=== PATIENT | male | born 1955 | race Caucasian/White ===

== ENCOUNTER 2019-03-02 21:34 | Emergency (ER) | payer MEDICARE, OTHER, SELFPAY ==
[2019-03-02 21:36] VITALS: BP 183/102; PULSE 79; RESP 18; TEMP 36.8; O2SAT 96; BMI 30.7
--- NOTE | 2019-03-02 22:36 | RAD_ITS ---
STUDY: X-RAY - LEFT TIBIA AND FIBULA REASON FOR EXAM: Male, 63 years old. Injury. Metal work bench fell on legs TECHNIQUE: Frontal and lateral view(s) of the tibia and fibula were obtained. COMPARISON: None. FINDINGS: Normal visualized tibia. There is subtle lucency of the proximal shaft of the fibula with acute nondisplaced fracture versus artifact. The soft tissue structures are unremarkable. RAD/Tibia & Fibula 2 Views IMPRESSION: Fibula fracture versus artifact. Electronically Signed: Van Mosher MD at 23:29 EDT , Service support ,
--- NOTE | 2019-03-02 22:37 | ED.VIS.LOWEX ---
History of Present Illness Chief Complaint: Lower Extremity Injury Informant: Patient Occurred: Today - RADHA, about 1 hr ago Mechanism/Context: Injury Context: Sudden Onset Timing: Continuous Quality of Pain: Aching Location: both lower legs/knees Current Severity: Mild Maximum Severity: Moderate Worsened by: walking, moving Relieved by: remaining still Associated Symptoms: Negative for: Parasthesia, Weakness, Loss of Funtion Narrative: Patient states he was fabricating a heavy metal table, he had part of it jacked up on the blocks so that he could get underneath of it to paint it, when it tipped over accidentally because he moved to forgetting it was up on blocks, it landed on his legs. He was pinned under it because of his weight for 10-15 minutes, 1 someone helped him to lift it off he was able to get up and walk although he is having pain. He states that hit his left lower extremity first and then across his right lower. Proximal aspects of both lower legs are what are basically injured, the left side of both of them; medial on the right and lateral on the left. He has been able to ambulate since then. He is on Eliquis for history of atrial fibrillation. He denies any numbness that he knows of. Family states he was pale when they found him underneath the table but conscious and he denies any other injuries or pain. - Past Medical History (1) Atrial fibrillation Status: Chronic Past Medical History - Allergies and Home Meds Allergies/Adverse Reactions: Allergies No Known Allergies Allergy (Verified 03/02/19 21:38) Primary Care Physician: River Cho MD [Primary Care Provider] - Surgical History: total knee arthroplasty - Right Lives: With Family Smoking Status: Never smoker Review of Systems Cardiovascular: Denies: Chest pain, Palpitations Respiratory: Denies: Dyspnea, Orthopnea Gastrointestinal: Denies: Abdominal pain, Nausea, Vomiting Musculoskeletal: Reports: Extremity Pain. Denies: Neck pain, Back pain, Swelling Skin: Reports: Abrasions, Wounds Neurological: Denies: Headache, Weakness, Parasthesia, Numbness Physical Exam Vital Signs/Narrative: Vital Signs Temp Pulse Resp BP Pulse Ox 03/02/19 21:36 98.3 F 79 18 183/102 H 96 Inital Vital Signs reviewed: Yes - Extremity Exam Right Hip: Negative for: Limited ROM Left Hip: Negative for: Limited ROM Right Femur: - - Atraumatic and nontender Left Femur: - - Atraumatic and nontender Right Knee: Negative for: Limited ROM - Full range of motion. Extensor mechanism intact. No effusion. No patellar tenderness. All ligaments nontender with stressing, short endpoints, and no laxity including negative posterior drawer and Sawyer. Left Knee: Negative for: Limited ROM - Full range of motion. Extensor mechanism intact. No effusion. No patellar tenderness. All ligaments nontender with stressing, short endpoints, and no laxity including negative posterior drawer and Sawyer. Right Tib fib: Contusion - Mild ecchymosis with tenderness proximal medial calf and medial joint line of knee; no deformities; all compartments soft and nondistended. Negative for: Limited ROM - Full range of motion of knee and ankle Left Tib Fib: Abrasion - At fibular head, Contusion - Mild ecchymosis with tenderness proximal lateral lower leg and lateral joint line of knee; no deformities; all compartments soft and nondistended. Negative for: Limited ROM - Full range of motion knee and ankle Right Ankle: Negative for: Limited ROM - Atraumatic and nontender Left Ankle: Negative for: Limited ROM - Atraumatic and nontender Right Foot: Negative for: Limited ROM - Atraumatic and nontender Left Foot: Negative for: Limited ROM - Atraumatic and nontender Right Toe: Negative for: Limited ROM - Atraumatic and nontender Left Toe: Negative for: Limited ROM - Atraumatic and nontender General: Well nourished, Well developed, - - Well appearing, NAD Head: Normocephalic, Atraumatic ENT: No Trauma, Moist Mucous Membranes Neck: Nontender, Full ROM Back: Nontender, - - Age of motion throughout Skin: Normal color, No rash, Trauma - Minor light ecchymosis and abrasions both lower extremities, proximal lower legs. No signs of trauma and thighs. No purpuric injury. No lacerations. Neurological: Alert, Oriented x3, Cranial nerves II-XII grossly intact, Normal Strength, Normal Sensation Psychological: Normal affect, Normal Mood Diagnostic/Tx/Re-eval Impressions Tibia/Fibula X-Ray 03/02/19 22:39 IMPRESSION: No fracture. Electronically Signed: Van Mosher MD at 23:27 EDT , Service support , 03/02/19 22:36 Tibia & Fibula 2 Views [RAD] Stat 03/02/19 22:39 Tibia & Fibula 2 Views [RAD] Stat Laboratory Results 03/02/19 03/02/19 03/02/19 22:50 22:50 23:04 WBC 10.4 RBC 4.53 L Hgb 14.9 Hct 42.4 MCV 93.6 MCH 32.9 H MCHC 35.1 RDW Std Deviation 42.4 RDW Coeff of Calista 12.2 Plt Count 114 L MPV 11.2 Immature Gran % (Auto) 0.300 Neut % (Auto) 76.2 H Lymph % (Auto) 15.1 L [place] % (Auto) 5.9 Eos % (Auto) 1.8 Baso % (Auto) 0.7 Absolute Neuts (auto) 8.0 H Absolute Lymphs (auto) 1.57 Nucleated RBC % 0 Sodium Cancelled Potassium Cancelled Chloride Cancelled Carbon Dioxide Cancelled Anion Gap Cancelled BUN Cancelled Creatinine Cancelled Estim Creat Clear Calc Cancelled Est GFR (MDRD) Af Amer Cancelled Est GFR (MDRD) Non-Af Cancelled BUN/Creatinine Ratio Cancelled Glucose Cancelled Calcium Cancelled Total Creatine Kinase Cancelled Urine Color Yellow Urine Clarity Clear Urine pH 7.0 Ur Specific [place] 1.010 Urine Protein Negative Urine Glucose (UA) Normal Urine Ketones Negative Urine Occult Blood Negative Urine Nitrite Negative Urine Bilirubin Negative Urine Urobilinogen Normal Ur Leukocyte Esterase Negative Urine RBC 0 SEEN Urine WBC 0 SEEN Ur Squamous Epith Cells 0 SEEN Urine Bacteria 0 SEEN Urine Mucus 0 SEEN Urine Yeast RARE 03/02/19 03/02/19 23:50 23:50 WBC 10.3 RBC 4.37 L Hgb 14.3 Hct 40.8 MCV 93.4 MCH 32.7 H MCHC 35.0 RDW Std Deviation 42.6 RDW Coeff of Calista 12.3 Plt Count 186 MPV 9.4 Immature Gran % (Auto) 0.300 Neut % (Auto) 75.1 H Lymph % (Auto) 16.0 L [place] % (Auto) 6.2 Eos % (Auto) 1.8 Baso % (Auto) 0.6 Absolute Neuts (auto) 7.8 H Absolute Lymphs (auto) 1.65 Nucleated RBC % 0 Sodium 139 Potassium 3.9 Chloride 105 Carbon Dioxide 25.0 Anion Gap 9 BUN 21 H Creatinine 0.92 Estim Creat Clear Calc 85.26 Est GFR (MDRD) Af Amer 107 Est GFR (MDRD) Non-Af 88 BUN/Creatinine Ratio 22.9 H Glucose 100 Calcium 8.7 Total Creatine Kinase 587 H Urine Color Urine Clarity Urine pH Ur Specific [place] Urine Protein Urine Glucose (UA) Urine Ketones Urine Occult Blood Urine Nitrite Urine Bilirubin Urine Urobilinogen Ur Leukocyte Esterase Urine RBC Urine WBC Ur Squamous Epith Cells Urine Bacteria Urine Mucus Urine Yeast - Medical Decision Making CPK is a little elevated but is not 5 times the upper limit of normal to suggest rhabdomyolysis. Urinalysis is normal showing no myoglobinuria and he has normal kidney function. X-rays show normal right side and a nondisplaced upper fibular shaft fracture on the left. Given the mechanism, this is likely from blunt injury and not from torquing, he has no pain at the ankle. There is no clinical suspicion at this time of compartment syndrome. Discussed with Dr. Pedro Castro who states he can be weightbearing as tolerated and follow-up as an outpatient, however if he is limping due to the pain, which he is, he should use some type of ambulatory assist device to help limit weightbearing. Patient has a walker and cane at home so he will use those. Prescribed tramadol to use as needed for pain in addition to Tylenol which he was given here, advised to use ice not heat, and avoid NSAIDs since he is on Eliquis. All questions answered at bedside he is comfortable with this plan. ED Disposition - Plan for ED Patient: Disposition: Home or Assisted Living Diagnosis: Closed traumatic nondisplaced fracture of shaft of left fibula, Contusion of right lower leg Instructions: FRACTURE, Lower Extremity Prescriptions: traMADol [Ultram] 50 mg PO Q4H PRN PRN 3 Days #20 tab PRN Reason: Pain Prescription Printed Referrals: Pedro Castro MD [STAFF PHYSICIAN] - 1-2 Weeks Additional Instructions: Okay to take Tylenol as needed for pain, may add prescription tramadol as needed. They do not interact with each other, so take the prescription as prescribed as needed and Tylenol up to 1000 mg every 6 hours or 650 mg every 4 hours as needed for pain. For any swelling or pain while resting you may apply ice to the affected area(s); do not apply heat. Use cane or walker to help limit weightbearing to your left lower extremity until you no longer need to limp on it.
--- NOTE | 2019-03-02 22:39 | RAD_ITS ---
STUDY: X-RAY - RIGHT TIBIA AND FIBULA REASON FOR EXAM: Male, 63 years old. Injury. Metal work bench fell on legs. TECHNIQUE: Frontal and lateral view(s) of the tibia and fibula were obtained. COMPARISON: None. FINDINGS: There is right knee replacement. Normal distal tibia. Normal visualized fibula. There is no demonstrated acute fracture. The soft tissue structures are unremarkable. RAD/Tibia & Fibula 2 Views IMPRESSION: No fracture. Electronically Signed: Van Mosher MD at 23:27 EDT , Service support ,
[2019-03-02 23:06] VITALS: RESP 16
[2019-03-02 23:12] LABS: Bacteria 0 SEEN /hpf (None Seen); Mucous, Urine 0 SEEN /hpf (<or=2+); Red Blood Cells-Urine 0 SEEN /hpf (0-5); Squamous Epithelial Cells - UA 0 SEEN /hpf (0-5); White Blood Cells 0 SEEN /hpf (0-5)
[2019-03-02 23:13] LABS: Color, Urine Yellow (Yellow); Glucose, Dipstick Normal (Normal); Ketone-Dipstick Negative (Negative); Leukocyte Esterase-Dipstick Negative /ul (Negative); Nitrite-Dipstick Negative (Negative); Occult Blood-Urine Negative /ul (Negative); Protein-Dipstick Negative (Negative); Urine Bilirubin Dipstick Negative (Negative); Urine Clarity Clear (Clear); Urine Urobilinogen Normal (Normal)
[2019-03-02 23:20] LABS: Yeast-Urine RARE /hpf (None Seen)
[2019-03-02] MEDS: Acetaminophen 325 MG Tablet 650 MG PO (23:30)
[2019-03-03 00:08] LABS: Absolute Lymphocyte Count 1.65 X10^3/uL (0.83-4.51); Absolute Neutrophil Count 7.8 X10^3/uL (2.0-7.7); Basophil# 0.06 X10^3/uL; Basophil% 0.6 % (0-1); Eosinophil# 0.19 X10^3/uL; Eosinophils% 1.8 % (0-5); Hematocrit 40.8 % (40-54); Hemoglobin 14.3 g/dL (13.0-16.5); Lymphocyte # 1.65 X10^3/ul (4.0); Mean Corpuscular Hgb 32.7 pg (27.0-32.0); Mean Corpuscular Volume 93.4 fL (80-94); Mean Platelet Vol. 9.4 fl (6.2-12.0); Monocyte# 0.64 X10^3/uL; Monocyte% 6.2 % (0-10); NRBC Flagged by Analyzer 0 % (0-5); Neutrophil # 7.76 X10^3/uL (2.7-7.7); Neutrophil % 75.1 % (47-70); Platelet Count 186 K/mm3 (150-450); RBC Distribution Width CV 12.3 % (11.6-14.6); RBC Distribution Width SD 42.6 fl (35.1-43.9); Red Blood Count 4.37 M/mm3 (4.6-6.2); White Blood Count 10.3 K/mm3 (4.4-11.0)
[2019-03-03 00:37] LABS: Anion Gap 9 (5-15); BUN 21 mg/dL (7-18); BUN/Creat Ratio 22.9 RATIO (10-20); CPK Total, Creatine Kinase 587 U/L (39-308); Calcium,Total 8.7 mg/dL (8.5-10.1); Chloride 105 mmol/L (98-107); Creatinine, Serum 0.92 mg/dL (0.70-1.30); EST Glomerular Filtration Rate 88 mL/min (>60); Est Glom Filt Rate - Afr Amer 107 mL/min (>60); Estimated Creatinine Clearance 85.26 ml/min; Glucose 100 mg/dL (74-106); Potassium 3.9 mmol/L (3.5-5.1); Sodium Level 139 mmol/L (136-145)
[2019-03-03 01:08] VITALS: BP 146/78; PULSE 87; RESP 17; O2SAT 97
== END 2019-03-03 01:09 | disposition home or self-care (01) ==
PROVIDERS: Emergency Provider Emergency Medicine; Family Provider Family Medicine; PCP Family Medicine
DX: S82.402A Unspecified fracture of shaft of left fibula, initial encounter for closed fracture (principal); S80.11XA Contusion of right lower leg, initial encounter; W20.8XXA Other cause of strike by thrown, projected or falling object, initial encounter; Y93.9 Activity, unspecified; Y92.9 Unspecified place or not applicable; Y99.9 Unspecified external cause status; I48.91 Unspecified atrial fibrillation; Z79.01 Long term (current) use of anticoagulants
CPT/HCPCS: 73590; 80048; 81001; 82550; 85025; 99282

== ENCOUNTER 2020-04-27 04:44 | Observation (INO) | payer MEDICARE, OTHER, SELFPAY ==
[2020-04-27] VITALS (16 sets, daily range): BP systolic 100–137; BP diastolic 52–79; PULSE 63–145; RESP 14–20; TEMP 35.5–36.8; O2SAT 94–100; BMI 33.7; BMI 32.3
--- NOTE | 2020-04-27 04:55 | EKG12_ITS ---
Test Reason : CP Blood Pressure : / mmHG Vent. Rate : 143 BPM Atrial Rate : 127 BPM P-R Int : 000 ms QRS Dur : 088 ms QT Int : 316 ms P-R-T Axes : 000 040 -78 degrees QTc Int : 487 ms Atrial fibrillation with rapid ventricular response ST & T wave abnormality, consider inferolateral ischemia Abnormal ECG Confirmed by BELKYS MACARIO, JOHN ([id number]), metropolitan editor DAVID SANCHEZ ([id number]) on 05/02/2020 10:08:39 AM Referred By: CAMMY Confirmed By:JOSE F RIZVI MD
[2020-04-27] MEDS: dilTIAZem 25 MG/5 ML Vial 20 MG IV BOLUS (05:00)
--- NOTE | 2020-04-27 05:02 | ED.DCSUM_ITS ---
History of Present Illness Chief Complaint: Palpitations Narrative: Mr. Cordova is a pleasant 64-year-old gentleman who presents with epigastric pressure. At about 1 AM he had what he initially thought was gas pain. He complains of an epigastric pressure as well as mild shortness of breath and palpitations. This began about 4 hours prior to presentation. He does have a history of paroxysmal atrial fibrillation. He is anticoagulated. He denies any recent medical illness otherwise such as fevers cough vomiting diarrhea. He sees cardiology in [place], he believes it was Dr. Newberry. Past Medical History - Allergies and Home Meds Allergies/Adverse Reactions: Allergies No Known Allergies Allergy (Verified 04/27/20 04:47) Primary Care Physician: River Cho MD [Primary Care Provider] - Past Medical History: - - Hypertension, hyperlipidemia, atrial fibrillation Surgical History: total knee arthroplasty - Right Smoking Status: Never smoker Review of Systems All systems negative except as indicated General: Denies: Fever Eyes: Denies: Visual changes - bilaterally ENT: Denies: Bilateral ear pain Cardiovascular: Reports: Chest pain, Palpitations, Heart racing Respiratory: Reports: Dyspnea Gastrointestinal: Denies: Nausea, Vomiting Musculoskeletal: Denies: Myalgias Skin: Denies: Rash Neurological: Denies: Headache Allergy: Denies: Uticaria Physical Exam Vital Signs/Narrative: Vital Signs Temp Pulse Resp BP Pulse Ox 04/27/20 04:58 100 04/27/20 04:44 96 F L 145 H 20 H 132/78 H 99 Inital Vital Signs reviewed: Yes General: Well nourished Head: Normocephalic Eyes: EOMI ENT: Moist mucous membranes Neck: Supple Cardiovascular: Irregular, Tachycardia, - - Palpable symmetric radial pulses Respiratory: No distress, CTA bilaterally Abdomen: Soft, Nontender Extremities: Nontender Skin: Normal color Neurological: Alert Psychological: Normal affect Diagnostic/Tx/Re-eval Impressions Chest X-Ray 04/27/20 05:08 IMPRESSION: No radiographic evidence of acute cardiopulmonary disease. at 0520 Reported and signed by: Judy Marlow DO Electronically Signed: Judy Marlow DO at 5:19 EST Tel , Service support , 04/27/20 05:08 Chest 1 View (Portable) [RAD] Stat Laboratory Results 04/27/20 04/27/20 04/27/20 04:52 04:52 04:52 WBC 7.7 RBC 4.92 Hgb 15.9 Hct 46.0 MCV 93.5 MCH 32.3 H MCHC 34.6 RDW Std Deviation 42.5 RDW Coeff of Calista 12.4 Plt Count 217 MPV 9.7 Immature Gran % (Auto) 0.100 Neut % (Auto) 60.2 Lymph % (Auto) 28.2 [place] % (Auto) 7.6 Eos % (Auto) 3.0 Baso % (Auto) 0.9 Absolute Neuts (auto) 4.6 Absolute Lymphs (auto) 2.16 Nucleated RBC % 0 PT 13.3 INR 1.1 Sodium 138 Potassium 3.7 Chloride 106 Carbon Dioxide 25.0 Anion Gap 7 BUN 23 H Creatinine 0.98 Estim Creat Clear Calc 78.97 Est GFR (MDRD) Af Amer 98 Est GFR (MDRD) Non-Af 81 BUN/Creatinine Ratio 23.4 H Glucose 118 H Calcium 8.7 Troponin I 0.036 - Medical Decision Making EKG shows atrial fibrillation with RVR at a rate of 143. There is inferior and lateral ST depression in T wave inversion suspect rate related. One-view portable chest x-ray was obtained. On my interpretation this shows no acute process. X-ray was then read by radiology as no radiographic evidence of acute cardiopulmonary disease. Labs are unremarkable with a negative troponin. Patient was given IV Cardizem and heart rate is ranging anywhere from 90s to 120 although is usually around 100-110. Patient did take his home metoprolol prior to coming to the emergency department. Patient discussed with the hospitalist who agrees to place in observation. ED Disposition - Plan for ED Patient: Disposition: Acute Care Hospital [facility] Diagnosis: Atrial fibrillation with RVR Referrals: River Cho MD [Primary Care Provider] -
[2020-04-27 05:05] LABS: Absolute Lymphocyte Count 2.16 X10^3/uL (0.83-4.51); Absolute Neutrophil Count 4.6 X10^3/uL (2.0-7.7); Basophil# 0.07 X10^3/uL; Basophil% 0.9 % (0-1); Eosinophil# 0.23 X10^3/uL; Hemoglobin 15.9 g/dL (13.0-16.5); Lymphocyte # 2.16 X10^3/ul (4.0); Lymphocyte % 28.2 % (19-41); Mean Corp Hgb Conc 34.6 g/dL (32-36); Mean Corpuscular Hgb 32.3 pg (27.0-32.0); Mean Corpuscular Volume 93.5 fL (80-94); Mean Platelet Vol. 9.7 fl (6.2-12.0); Monocyte# 0.58 X10^3/uL; Monocyte% 7.6 % (0-10); NRBC Flagged by Analyzer 0 % (0-5); Neutrophil % 60.2 % (47-70); Platelet Count 217 K/mm3 (150-450); RBC Distribution Width CV 12.4 % (11.6-14.6); RBC Distribution Width SD 42.5 fl (35.1-43.9); Red Blood Count 4.92 M/mm3 (4.6-6.2); White Blood Count 7.7 K/mm3 (4.4-11.0)
--- NOTE | 2020-04-27 05:06 | ED.RN ---
SON LEON [phone], JACKIE [phone]. UPDATED ON PROBABLE ADMISSION.
--- NOTE | 2020-04-27 05:08 | RAD_ITS ---
HEART PALPITATIONS THAT STARTED AROUND 1AM. H/O AFIB. HEAVINESS IN CHEST, DIZZINESS. EXAMINATION/TECHNIQUE: XR Chest 1 View: COMPARISON: None FINDINGS: LINES/DEVICES: None. LUNGS: No consolidation, edema or effusion. No pneumothorax. MEDIASTINUM AND CARDIOVASCULAR STRUCTURES: Cardiac silhouette not enlarged. Central airways and mediastinal contour are unremarkable. BONES AND SOFT TISSUES: Unremarkable. RAD/Chest 1 View (Portable) IMPRESSION: No radiographic evidence of acute cardiopulmonary disease. at 0520 Reported and signed by: Judy Marlow DO Electronically Signed: Judy Marlow DO at 5:19 EST Tel , Service support ,
[2020-04-27 05:12] LABS: International Normalized Ratio 1.1; Prothrombin Time (Protime)PT. 13.3 SECONDS (11.7-14.9)
[2020-04-27 05:24] LABS: Anion Gap 7 (5-15); BUN 23 mg/dL (7-18); BUN/Creat Ratio 23.4 RATIO (10-20); Calcium,Total 8.7 mg/dL (8.5-10.1); Chloride 106 mmol/L (98-107); Creatinine, Serum 0.98 mg/dL (0.70-1.30); EST Glomerular Filtration Rate 81 mL/min (>60); Est Glom Filt Rate - Afr Amer 98 mL/min (>60); Estimated Creatinine Clearance 78.97 ml/min; Glucose 118 mg/dL (74-106); Potassium 3.7 mmol/L (3.5-5.1); Sodium Level 138 mmol/L (136-145)
--- NOTE | 2020-04-27 05:42 | PCM.HP.STD ---
Problem List (1) Hypertension Status: Chronic (2) Atrial fibrillation Status: Chronic (3) Atrial fibrillation with RVR Status: Acute History of Present Illness Date of Admission: 04/27/20 Chief Complaint: Chest pressure, palpitation. The patient is a 64 year old M with past medical history as mentioned above presented to the emergency room because of chest pressure and palpitation. Patient states that he woke up around 1 AM this morning from his sleep, started having chest pressure, mild, described as pressure pain, not radiating and shortly after, he started having palpitation. He mentioned that he knew that his A. fib is acting up, started having strong irregular heartbeats, associated with dizziness and he continued to have chest pressure. He denied shortness of breath, syncope or presyncope. He denied cough or sputum production. He denied fever or chills. In the emergency department, patient was in A. fib with RVR, other vital signs were stable. Received 1 dose of IV Cardizem bolus and heart rate went down to around 100 but has been fluctuating anywhere from 90s up to 120s. Routine blood work was unremarkable. EKG revealed A. fib with RVR, no acute ischemic changes. Troponin was negative. Chest x-ray showed no acute findings. He is being admitted for A. fib with RVR. Past Medical History Past Medical History (Chronic Problems): Chronic Problems Hypertension (Chronic) Atrial fibrillation (Chronic) Allergies No Known Allergies Allergy (Verified 04/27/20 04:47) Home Medications: Ambulatory Orders Medication Instructions Recorded Apixaban [Eliquis] 5 mg PO BID 04/27/20 Isosorbide Mononitrate [Isosorbide 30 mg PO DAILY 04/27/20 Mononitrate ER] Lisinopril [Prinivil] 10 mg PO DAILY 04/27/20 Metoprolol Succinate 100 mg PO DAILY 04/27/20 Surgical History: total knee arthroplasty - Right Psychiatric History: No pertinent psych hx Lives: Spouse/ Significant Other Smoking Status: Never smoker Alcohol: None Drugs: None - *Family History Maternal History Items: No pertinent history Paternal History Items: No pertinent history Review of Systems Constitutional: Denies: Anorexia, Chills, Fever, Night Sweats, Weakness Eyes: Denies: Blurred vision, Double vision, Drainage, Redness HEENT: Denies: Difficulty Hearing, Ear Pain, Eye Pain, Nasal Congestion, Sore Throat Cardiovascular: Reports: Chest Pressure, Light Headedness, Palpitations. Denies: Chest Pain, Edema, Heaviness, Paroxysmal Noc. Dyspnea, Syncope Respiratory: Denies: Cough, Hemoptysis, Pleuritic Pain, Shortness of Breath, Sputum production, Wheezing Gastrointestinal: Denies: Abdominal Pain, Constipation, Diarrhea, Nausea, Vomiting Genitourinary: Denies: Dysuria, Frequency, Hematuria Musculoskeletal: Denies: Arm Pain, Back Pain, Foot Pain Skin: Denies: Dryness, Rash Neurological: Denies: Balance problems, Blurred vision, Double vision, Change in Speech, Slurred speech, Confusion, Headaches, Incoordination Psychiatric: Denies: Anxiety, Depression Endocrine: Denies: Change in Body Habitus, Polydipsia, Polyuria VTE Information - Inpt Only VTE Present on Admission: No VTE Mechan Device Prophylaxis: None VTE Pharm Prophylaxis ordered?: No Patient Problems: Active and Suspected Problems Atrial fibrillation with RVR (Acute) - Physical Exam Vitals/I&O's: Vital Signs Temp Pulse Resp BP Pulse Ox 96 F L 145 H 20 H 132/78 H 100 04/27/20 04:44 04/27/20 04:44 04/27/20 04:44 04/27/20 04:44 04/27/20 04:58 Oxygen Flow Rate (L/min) 2 Oxygen Delivery Method Nasal Cannula Weight: 241 lb 13.553 oz Body Mass Index (BMI) 33.7 General: Alert, Oriented x3, Cooperative, No apparent distress HEENT: Atraumatic, PERRLA, EOMI, Normocephalic Oral: Moist Mucosa, No Gingival or Mucosal Lesions/ Ulcerations Neck: Supple, No JVD, Negative Carotid Bruits, Trachea Midline, Thyroid Normal Size and Texture Lungs: Clear to auscultation, Normal air movement, No rhonchi, No wheeze, No rales Cardiovascular: Normal S1, Normal S2, No murmurs, PMI Normal, Irregular Rate, Tachycardic Abdomen: Bowel Sounds Present, Soft, Non Tender, Non-Distended, No Hepato-splenomegaly, Obese Extremities: No clubbing, No cyanosis, No edema Skin: No rashes, No breakdown Lymphatic: No Cervical, Supraclavicular, or Inguinal Adenopathy Neurological: Cranial nerves II-XII grossly intact, Motor Exam 5/5 strength throughout Psych/Mental Status: Normal Affect, Appropriate, Alert and oriented to time, place, person, mood and affect Laboratory Results 04/27/20 04:52: WBC 7.7, RBC 4.92, Hgb 15.9, Hct 46.0, MCV 93.5, MCH 32.3 H, MCHC 34.6, RDW Std Deviation 42.5, RDW Coeff of Calista 12.4, Plt Count 217, MPV 9.7, Immature Gran % (Auto) 0.100, Neut % (Auto) 60.2, Lymph % (Auto) 28.2, [place] % (Auto) 7.6, Eos % (Auto) 3.0, Baso % (Auto) 0.9, Absolute Neuts (auto) 4.6, Absolute Lymphs (auto) 2.16, Nucleated RBC % 0 04/27/20 04:52: Sodium 138, Potassium 3.7, Chloride 106, Carbon Dioxide 25.0, Anion Gap 7, BUN 23 H, Creatinine 0.98, Estim Creat Clear Calc 78.97, Est GFR (MDRD) Af Amer 98, Est GFR (MDRD) Non-Af 81, BUN/Creatinine Ratio 23.4 H, Glucose 118 H, Calcium 8.7, Troponin I 0.036 04/27/20 04:52: PT 13.3, INR 1.1 Clinical Impression(s) from Imaging Studies Chest X-Ray 04/27/20 05:08 IMPRESSION: No radiographic evidence of acute cardiopulmonary disease. at 0520 Reported and signed by: Judy Marlow DO Electronically Signed: Judy Marlow DO at 5:19 EST Tel , Service support , Assessment/Plan All Active Problems Atrial fibrillation with RVR (Acute) This is a 64 years old male patient presented to the emergency room because of chest pressure and palpitation and is being admitted for A. fib with RVR. #1 A. fib with RVR: In the setting of history of chronic atrial fibrillation. EKG reviewed as above. Patient received 1 dose of IV Cardizem bolus. Heart rate has been fluctuating anywhere from 90s up to 120s, blood pressure stable. Troponin is negative. No acute ischemic changes on EKG. Chest x-ray was unremarkable. Plan: Admit to PCU for observation, cardiac monitoring, serial cardiac enzymes, check TSH, serum magnesium, continue metoprolol XL for rate control, continue Eliquis for anticoagulation, start Cardizem 30 mg p.o. every 6 hours. #2 hypertension: Blood pressure stable, continue lisinopril, metoprolol and isosorbide mononitrate. #3 DVT prophylaxis: Continue Eliquis. This note was generated with [employer] dictation software. It may contain incorrect words, spelling, and punctuation that were not noted in checking the note before signing. OBSV E&M: 20036 Initial observation care L2
--- NOTE | 2020-04-27 06:58 | PCS.PANDOC ---
PANDEMIC DOCUMENTATION INITIATED: Date: 04/27/20 Time: 631
--- NOTE | 2020-04-27 06:58 | PCS.PANDOC ---
PANDEMIC DOCUMENTATION INITIATED: Date: 04/27/2020 Time: 629
[2020-04-27] MEDS: dilTIAZem 30 MG Tablet PO ×4 (07:52→22:06)
[2020-04-27 08:17] LABS: Magnesium 1.8 mg/dL (1.6-2.6); Thyroid Stim Hormone (TSH) 3.24 uIU/mL (0.358-3.74)
--- NOTE | 2020-04-27 09:20 | ECHOD_ITS ---
Reason For Study: A. fib Procedure This was a 2D Doppler, Color Flow transthoracic echocardiogram. Exam performed portable in patient room. Left Ventricle -The LV EF is 60 to 65% with LVH. -There is no significant regional wall motion abnormality. Right Ventricle Normal right ventricle. Atria Normal left atrium. Normal right atrium. Mitral Valve The mitral valve is structurally normal. No prolapse or stenosis seen. Tricuspid Valve Normal tricuspid valve. Aortic Valve Trisinus/trileaflet aortic valve. -There is trace to mild aortic regurgitation. Pulmonic Valve The pulmonic valve is not well visualized. Great Vessels Normal inferior vena cava. Pericardium/Pleural No pericardial effusion. MMode/2D Measurements & Calculations LVIDd: 3.9 cm IVSd: 1.5 cm Ao root diam: 3.4 cm LVIDs: 2.4 cm LVPWd: 1.2 cm RVDd: 3.7 cm FS: 38.6 % LAV(MOD-bp): 75.0 ml LA A4 area: 22.5 cm2 LA dimension(2D): 3.8 cm LAV(MOD-bp) Indexed: 33.5 ml/m2 LAV(MOD-sp2): 73.3 ml LAV(MOD-sp4): 65.0 ml RA A4 area: 18.6 cm2 Doppler Measurements & Calculations MV E max pati: 75.4 cm/sec Ao V2 max: 117.9 cm/sec LV V1 max: 87.5 cm/sec Ao max P.6 mmHg LV V1 max P.1 mmHg PA V2 max: 82.2 cm/sec TR max pati: 238.3 cm/sec TR max P.7 mmHg Interpretation Summary +Transthoracic Echo Summary: -The LV EF is 60 to 65% with LVH. -There is no significant regional wall motion abnormality. -There is trace to mild aortic regurgitation. -There is no significant diastolic dysfunction. -There is no significant Pulmonary Hypertension. -The IVC is within normal limits. -There is no gross PFO or ASD. DO LIZBETH Gallegos, WILLY PARHAM, [place] Ordering Physician: Bret Soto Referring Physician: River Cho Performed By: Matilde Wang RDCS
[2020-04-27] MEDS: Metoprolol(XL)Succ 100 MG Tablet PO (10:02)
[2020-04-27] MEDS: APIXABAN 5 MG TABLET PO ×2 (10:02→22:06)
--- NOTE | 2020-04-27 13:14 | EKG12_ITS ---
Test Reason : RHYTHM Blood Pressure : / mmHG Vent. Rate : 069 BPM Atrial Rate : 069 BPM P-R Int : 154 ms QRS Dur : 086 ms QT Int : 404 ms P-R-T Axes : 007 019 -29 degrees QTc Int : 432 ms Normal sinus rhythm Nonspecific T wave abnormality Abnormal ECG When compared with ECG of 27-APR-2020 04:48, MANUAL COMPARISON REQUIRED, DATA IS UNCONFIRMED Confirmed by BELKYS MACARIO, JOHN ([id number]), food editor DAVID SANCHEZ ([id number]) on 05/02/2020 11:59:15 AM Referred By: ASTRID Confirmed By:JOSE F RIZVI MD
--- NOTE | 2020-04-27 14:04 | PCM.HOSP.N ---
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 H&P reviewed. Patient is in A. fib and converted to sinus rhythm about 1315 hours. On Toprol-XL and diltiazem 30 mg every 6 hourly. Patient denies history of coronary artery disease or SD or CHF. Physical exam General: Alert, Oriented x3, Cooperative HEENT: Atraumatic, PERRLA, EOMI, Normocephalic Oral: No Gingival or Mucosal Lesions/ Ulcerations Neck: Supple, No JVD, Negative Carotid Bruits Lungs: Air entry diminished in bilateral lung bases. No crepitation/rhonchi Cardiovascular: Regular rate, Regular Rhythm, Normal S1, Normal S2, No murmurs Abdomen: Bowel Sounds Present, Soft, Non Tender, Non-Distended : No renal angle tenderness. No suprapubic tenderness. Extremities: No edema, Capillary Refill Less than 3 Seconds Skin: No rashes, No breakdown Musculoskeletal: No Tenderness to Palpation of Joints or Extremities Neurological: Cranial nerves II-XII grossly intact, Deep Tendon Reflexes 2+/4 and Symmetrical, Neuro grossly intact Psych/Mental Status: Normal Affect, Appropriate. The echo was done -The LV EF is 60 to 65% with LVH. -There is no significant regional wall motion abnormality. -There is trace to mild aortic regurgitation. -There is no significant diastolic dysfunction. -There is no significant Pulmonary Hypertension. -The IVC is within normal limits. -There is no gross PFO or ASD. A. fib with RVR. Patient has history of chronic A. fib and was once cardioverted and stayed in sinus rhythm for a long time. Troponins mildly elevated 0.184, 0.312 probably related to A. fib with RVR. No regional wall motion abnormality as mentioned in 2D echo above. Continue Toprol-XL 100 mg daily and diltiazem 30 mg every 6, and lisinopril.
[2020-04-28 03:00] VITALS: PULSE 71
[2020-04-28 03:56] VITALS: BP 136/73; PULSE 66; RESP 16; TEMP 36.9; O2SAT 94
[2020-04-28] MEDS: dilTIAZem 30 MG Tablet PO (06:08)
[2020-04-28 07:00] VITALS: PULSE 68
[2020-04-28 07:18] LABS: Cholesterol 167 mg/dL (200); High Density Lipoprotein 37 mg/dL; Triglycerides 185 mg/dL; Very Low Density Lipoprotein 37 mg/dL (5-40)
[2020-04-28 07:30] VITALS: O2SAT 93
--- NOTE | 2020-04-28 08:41 | PCM.DC ---
- Discharge Diagnoses Current Active Problems: Current Active and Chronic Problems Hypertension (Chronic) Atrial fibrillation (Chronic) Atrial fibrillation with RVR (Acute) You will use the following diet at home:: Cardiac Your food should be the consistency of: Regular Discharge Activity: Return to Normal Activity Weight Bearing Status: Weight bearing as tolerated Call your doctor if you observe: Fever of 101 or Higher, Coldness, Increased Pain, Numbness or Tingling, Inability to urinate, Inability to have a bowel movement, Shortness of breath, Dizziness, Fainting spells, Swelling in the ankles, Chest pain, Prolonged hiccoughing, Increased palpitations (irregular heartbeat), Calf discomfort, Uncontrolled pain Additional Instructions: 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 fib with RVR. Advised outpatient exercise nuclear myocardial perfusion stress test in 2 to 4 weeks. Patient had last stress test about 3 years ago which was normal as per the patient. Allergies/Adverse Reactions: Allergies No Known Allergies Allergy (Verified 04/27/20 04:47) Medications to take at Discharge Apixaban [Eliquis] 5 mg PO BID 04/27/20 Isosorbide Mononitrate [Isosorbide Mononitrate ER] 30 mg PO DAILY 04/27/20 Lisinopril [Prinivil] 10 mg PO DAILY #0 04/28/20 Metoprolol Tartrate 75 mg PO BID #60 tab 04/28/20 The following prescriptions were given: Metoprolol Tartrate 75 mg PO BID #60 tab Transmission Status: Received by [facility]/pharmacy #[id number] Primary Care Physician: River Cho MD [Primary Care Provider] - Please follow up with your Primary Care Physician in: in 2 weeks Test Results: Test results from this visit will be discussed in further detail at your follow-up appointment, if applicable.
--- NOTE | 2020-04-28 08:43 | PCM.DC.SUM ---
Discharge Date and Diagnosis - Problem List Patient Problems: Active and Suspected Problems Atrial fibrillation with RVR (Acute) Date of Admission: 04/27/20 Date of Discharge: 04/28/20 - Primary Discharge Diagnosis Acute Problems: Active Problems Atrial fibrillation with RVR (Acute) - Secondary Discharge Diagnosis Chronic Problems: Chronic Problems Hypertension (Chronic) Atrial fibrillation (Chronic) Hospital Course and Treatment Summary of Care Provided: This 64 requesting gentleman with history of chronic A. fib was admitted with chest pressure and palpitation after he woke up with palpitation and pressure. EKG showed A. fib with RVR. Chest x-ray no acute finding. Patient had 1 dose of 20 mg IV Cardizem bolus and heart rate was slowed down around 100/min was further admitted in PCU. Patient had serial troponins which was mildly elevated from 0.184 0.509 and then decreased 0.14. Patient denies any further chest pressure after admission in PCU. Patient converted to sinus rhythm about 1300 hrs. on 04/27 confirmed with twelve-lead EKG. Patient denies any history of coronary artery disease, [place] or CHF. During hospital stay, patient continued on Toprol XL 100 mg daily and diltiazem 30 mg every 6 hourly added. Lisinopril continued. The echo was done -The LV EF is 60 to 65% with LVH. -There is no significant regional wall motion abnormality. -There is trace to mild aortic regurgitation. -There is no significant diastolic dysfunction. -There is no significant Pulmonary Hypertension. -The IVC is within normal limits. -There is no gross PFO or ASD. Discussed with the boat crew deck hand Dr. Singh specifications checker. We agreed that mild leaking troponin is type II TX from demand ischemia from A. fib with RVR. Patient does not have chest pain echo does not show regional wall motion abnormality. Patient was advised to have exercise myocardial nuclear stress test in 2 to 4 weeks with PCP and cardiology. Patient follows boat crew deck hand in [place] although he was not able to recall his name. Toprol-XL 100 mg daily was changed to metoprolol tartrate 75 mg twice daily as per boat crew deck hand recommendation. Patient is on Eliquis, lisinopril and isosorbide mononitrate. Blood pressure in normal range. Discharge medication reconciliation done. Discharge follow-up instructions completed. Discharge process discussed with the patient and all questions were answered to patient's satisfaction. Total time spent, exact 35 minutes on discharge meds reconciliation, examination, coordination of care with nurses and ancillary staff, review of imaging and blood test and discussion with the patient on follow-up instructions Patient Problems: Active and Suspected Problems Atrial fibrillation with RVR (Acute) Objective: Seen and examined. Patient's heart rate is controlled currently in high 60s. Patient was converted to sinus rhythm yesterday afternoon confirmed with twelve-lead EKG. Patient did not had any chest pain, shortness of breath, dizziness or near syncope or syncope. Physical exam General: Alert, Oriented x3, Cooperative HEENT: Atraumatic, PERRLA, EOMI, Normocephalic Oral: No Gingival or Mucosal Lesions/ Ulcerations Neck: Supple, No JVD, Negative Carotid Bruits Lungs: Air entry diminished in bilateral lung bases. No crepitation/rhonchi Cardiovascular: Regular rate, Regular Rhythm, Normal S1, Normal S2, No murmurs Abdomen: Bowel Sounds Present, Soft, Non Tender, Non-Distended : No renal angle tenderness. No suprapubic tenderness. Extremities: No edema, Capillary Refill Less than 3 Seconds Skin: No rashes, No breakdown Musculoskeletal: No Tenderness to Palpation of Joints or Extremities Neurological: Cranial nerves II-XII grossly intact, Deep Tendon Reflexes 2+/4 and Symmetrical, Neuro grossly intact Psych/Mental Status: Normal Affect, Appropriate. - Physical Exam Vitals/I&O's: Vital Signs Temp Pulse Resp BP Pulse Ox 98.4 F 66 16 136/73 H 93 04/28/20 03:56 04/28/20 03:56 04/28/20 03:56 04/28/20 03:56 04/28/20 07:30 Oxygen Flow Rate (L/min) 2 Oxygen Delivery Method Room Air Weight: 232 lb 2.348 oz Body Mass Index (BMI) 32.3 Intake and Output for Last 24 Hours 04/26/20 04/27/20 04/28/20 23:59 23:59 23:59 Intake Total 1140 / 1140 0 / 0 Balance 1140 / 1140 0 / 0 Laboratory Results 04/27/20 10:25: Troponin I 0.312 H 04/27/20 19:05: Troponin I 0.509 H 04/28/20 06:22: Triglycerides 185, Cholesterol 167, LDL Cholesterol 93, VLDL Cholesterol 37, HDL Cholesterol 37 L 04/28/20 06:22: Troponin I 0.214 H Current Medications Acetaminophen (Acetaminophen 325 Mg Tablet) 650 mg PO Q6H PRN PRN PRN Reason: Pain Score 1-10/Temp > 100.7 F Apixaban (Apixaban 5 Mg Tablet) 5 mg PO BID [facility] Last Admin: 04/27/20 22:06 Dose: 5 mg Documented by: Diltiazem HCl (Diltiazem 30 Mg Tablet) 30 mg PO Q6 [facility] Last Admin: 04/28/20 06:08 Dose: 30 mg Documented by: Sodium Chloride () 250 mls @ 15 mls/hr IV .[id number] PRN PRN Reason: Saline Flush Isosorbide Mononitrate (Isosorbide Mononitrate 30 Mg Tablet) 30 mg PO DAILY [facility] Last Admin: 04/27/20 10:03 Dose: Not Given Documented by: Lisinopril (Lisinopril 10 Mg Tablet) 10 mg PO DAILY [facility] Last Admin: 04/27/20 10:04 Dose: Not Given Documented by: Metoprolol Succinate (Metoprolol(Xl)Succ 100 Mg Tablet) 100 mg PO DAILY [facility] Last Admin: 04/27/20 10:02 Dose: 100 mg Documented by: Ondansetron HCl (Ondansetron 4 Mg/2 Ml Vial) 4 mg IV Q8H PRN PRN PRN Reason: NAUSEA/VOMITING Senna/Docusate Sodium (Senna/Docusate Sodium 1 Tablet) 2 tablet PO BID PRN PRN PRN Reason: Constipation Sodium Chloride (0.9% Saline Lock 10 Ml Syringe) 10 - 40 ml IV UD PRN PRN Reason: SALINE FLUSH Discharge Activity: Return to Normal Activity Weight Bearing Status: Weight bearing as tolerated Call your doctor if you observe: Fever of 101 or Higher, Coldness, Increased Pain, Numbness or Tingling, Inability to urinate, Inability to have a bowel movement, Shortness of breath, Dizziness, Fainting spells, Swelling in the ankles, Chest pain, Prolonged hiccoughing, Increased palpitations (irregular heartbeat), Calf discomfort, Uncontrolled pain Home Medications: Medications to take at Discharge Apixaban [Eliquis] 5 mg PO BID 04/27/20 Isosorbide Mononitrate [Isosorbide Mononitrate ER] 30 mg PO DAILY 04/27/20 Lisinopril [Prinivil] 10 mg PO DAILY #0 04/28/20 Metoprolol Tartrate 75 mg PO BID #60 tab 04/28/20 Following Prescriptions Were Given to Patient: Metoprolol Tartrate 75 mg PO BID #60 tab Transmission Status: Received by [facility]/pharmacy #[id number] Primary Care Physician: River Cho MD [Primary Care Provider] - Please follow up with your Primary Care Physician in: in 2 weeks Medical Necessity - Tobacco Use Smoking Status: Never smoker Meaningful Use Info Meaningful Use Diagnoses (Choose all that apply): None applicable OBSV E&M: 53769 Observation care discharge
[2020-04-28 09:11] VITALS: BP 143/68; PULSE 69; RESP 18; TEMP 37; O2SAT 95
[2020-04-28 09:15] VITALS: PULSE 69
[2020-04-28] MEDS: Isosorbide Mononitrate 30 MG Tablet PO (09:15)
[2020-04-28] MEDS: Metoprolol(XL)Succ 100 MG Tablet PO (09:15)
[2020-04-28] MEDS: APIXABAN 5 MG TABLET PO (09:15)
[2020-04-28] MEDS: Lisinopril 10 MG Tablet PO (09:16)
== END 2020-04-28 08:42 | disposition home or self-care (01) ==
LOC: ED 05:41 → PCU 06:23
PROVIDERS: Admitting Provider Hospitalist; Emergency Provider Emergency Medicine; PCP Family Medicine; Visit Provider Internal Medicine
DX: I48.0 Paroxysmal atrial fibrillation (principal); I10 Essential (primary) hypertension; Z79.01 Long term (current) use of anticoagulants; Z79.899 Other long term (current) drug therapy; E78.5 Hyperlipidemia, unspecified
CPT/HCPCS: 36415; 71045; 80048; 80061; 83735; 84443; 84484; 85025; 85610; 93005; 93306; 96374; 99218; 99285; Q9957; A4216; G0378

== ENCOUNTER → 2020-06-10 05:59 | Outpatient (CLI) | payer MEDICARE, OTHER, SELFPAY ==
[2020-05-29 14:45] VITALS: BMI 32.9
--- NOTE | 2020-06-10 16:23 | STRESSREP ---
Stress Test Report Exercise myocardial perfusion stress test. 64-year-old man with a history of coronary artery disease in the proximal LAD which was moderate in a diagonal branch with severe disease. Resting EKG demonstrates normal sinus rhythm with a rate of 65 bpm. T wave inversion is noted in lead III and aVF. Resting blood pressure is 1 and 32/80 8 mmHg. The patient exercised according to regular Oleksandr protocol for a total duration of 6 minutes and 30 seconds. The maximum heart rate attained was 153 bpm which was 99% of max impacted heart rate the maximum workload was 7.7 metabolic equivalents. At rest there were no ST or T wave changes noted suggest ischemia peak exercise was approximately 2.[address] depression noted in leads II, III and aVF and 1.5 to 1.[address] depression noted in lead V4, V5 and V6 suggestive of ischemia. No chest pain was noted the test was terminated due to dyspnea. During recovery the EKG changes returned to baseline. The peak blood pressure was 250/80 mmHg with a rate-pressure product of 31,600. There was exaggerated blood pressure response to exercise. Myocardial perfusion protocol. 14.1 mCi of technetium 99m sestamibi was injected at rest. The patient exercised according to regular Oleksandr protocol for a total duration of 6 minutes and 30 seconds at peak exercise 43.9 mCi of technetium 99m sestamibi was injected stress images were obtained stress and rest images were reconstructed and compared in the short axis vertical long horizontal long axis. Gated images were also obtained Perfusion SPECT analysis: Review of the stress images demonstrate normal uptake of tracer noted in all areas of the myocardium. The resting images similar demonstrate normal uptake of tracer noted in all areas of myocardium. No obvious areas of reversibility are noted suggest ischemia. Gated SPECT analysis: The gated ejection fraction is noted to be 64%. Conclusion: Normal exercise myocardial perfusion stress test with no evidence of ischemia at a high workload. EKG changes suggestive of ischemia present. Balanced ischemia or small area of ischemia cannot be completely excluded. Hypertensive response to exercise is noted.
== END ==
PROVIDERS: PCP Family Medicine; Referring Provider Internal Medicine Cardiovascular Disease; Visit Provider Internal Medicine Cardiovascular Disease
DX: I48.91 Unspecified atrial fibrillation (principal); I48.92 Unspecified atrial flutter; I25.10 Atherosclerotic heart disease of native coronary artery without angina pectoris; R06.02 Shortness of breath
CPT/HCPCS: 78452; 93017; A9500; A4216

== ENCOUNTER 2020-07-01 15:23 | Inpatient (IN) | payer MEDICARE, OTHER, SELFPAY ==
[2020-05-29 14:45] VITALS: BMI 32.9
[2020-06-28 08:31] VITALS: BMI 32.9
[2020-06-28 14:13] LABS: Absolute Lymphocyte Count 1.82 X10^3/uL (0.83-4.51); Absolute Neutrophil Count 3.3 X10^3/uL (2.0-7.7); Basophil# 0.06 X10^3/uL; Eosinophil# 0.17 X10^3/uL; Eosinophils% 2.9 % (0-5); Hematocrit 42.3 % (40-54); Hemoglobin 14.3 g/dL (13.0-16.5); Lymphocyte # 1.82 X10^3/ul (4.0); Lymphocyte % 31.3 % (19-41); Mean Corp Hgb Conc 33.8 g/dL (32-36); Mean Corpuscular Hgb 31.5 pg (27.0-32.0); Mean Corpuscular Volume 93.2 fL (80-94); Mean Platelet Vol. 9.8 fl (6.2-12.0); Monocyte# 0.51 X10^3/uL; Monocyte% 8.8 % (0-10); NRBC Flagged by Analyzer 0 % (0-5); Neutrophil # 3.25 X10^3/uL (2.7-7.7); Neutrophil % 55.8 % (47-70); Platelet Count 220 K/mm3 (150-450); RBC Distribution Width CV 12.8 % (11.6-14.6); RBC Distribution Width SD 43.8 fl (35.1-43.9); Red Blood Count 4.54 M/mm3 (4.6-6.2); White Blood Count 5.8 K/mm3 (4.4-11.0)
[2020-06-28 15:01] LABS: Anion Gap 6 (5-15); BUN 21 mg/dL (7-18); BUN/Creat Ratio 22.4 RATIO (10-20); Chloride 106 mmol/L (98-107); Creatinine, Serum 0.94 mg/dL (0.70-1.30); EST Glomerular Filtration Rate 86 mL/min (>60); Est Glom Filt Rate - Afr Amer 104 mL/min (>60); Estimated Creatinine Clearance 82.33 ml/min; Glucose 87 mg/dL (74-106); Potassium 4.2 mmol/L (3.5-5.1); Sodium Level 138 mmol/L (136-145)
[2020-07-01] VITALS (38 sets, daily range): BP systolic 120–193; BP diastolic 10–98; PULSE 63–80; RESP 14–21; TEMP 36.4–36.9; O2SAT 93–99; BMI 32.9
--- NOTE | 2020-07-01 08:52 | PCM.HP.BLA ---
History and Physical Date of Admission: 07/01/20 History of Present Illness Pleasant 64-year-old man with a history of hypertension, mild coronary artery disease, obstructive sleep apnea who presented to the hospital in April of this year. He woke up with chest pressure and palpitations and in the emergency room was noted to have atrial fibrillation with a rapid ventricular response rate. He was treated with intravenous Cardizem with his heart rate slowing down. He had mildly elevated troponin levels. His medications were changed he had an echocardiogram performed which demonstrated an ejection fraction of 65% with left ventricular hypertrophy. No wall motion abnormalities were noted. He had undergone a cardiac catheterization in 2017 which demonstrated a right dominant system with mild irregularities noted in the right coronary artery and left circumflex artery. The LAD had a 60% proximal stenosis in the first diagonal vessel had an ostial 90% stenosis. Medical therapy was recommended. He had previously undergone a CHANDAN cardioversion in July 2017 for atrial fibrillation as well. He underwent a stress test which was abnormal. He is here today for a dianostic heart cath. Intake Intake Visit Reasons: Amb Documentation Allergies No Known Allergies Allergy (Verified 07/01/20 08:09) Medications Apixaban [Eliquis] 5 mg PO BID 04/27/20 [History Confirmed 07/01/20] Isosorbide Mononitrate [Isosorbide Mononitrate ER] 30 mg PO DAILY 04/27/20 [History Confirmed 07/01/20] Lisinopril [Prinivil] 10 mg PO DAILY #0 04/28/20 [Rx Confirmed 07/01/20] Metoprolol Tartrate 75 mg PO BID #60 tab 04/28/20 [Rx Confirmed 07/01/20] aspirin 81 mg tablet,delayed release 81 mg PO QDAY #90 tab 05/29/20 [Rx Confirmed 07/01/20] atorvastatin 20 mg tablet 20 mg PO DAILY #90 tab 05/29/20 [Rx Confirmed 07/01/20] [facility] Medical History Atherosclerosis of coronary artery of [place] heart without angina pectoris (Chronic) Atrial fibrillation with RVR (Resolved 04/27/20) Coronary artery spasm (Resolved) History of non-ST elevation myocardial infarction (NSTEMI) (Resolved 04/27/20) Paroxysmal atrial fibrillation (Chronic) Essential hypertension (Chronic) Hyperlipidemia (Chronic) RAULITO on CPAP (Chronic) Obesity (Chronic) Surgical History History of cardioversion (Resolved 07/09/17) History of left heart catheterization (Resolved 04/05/18) Family History Mother Cancer Father Heart disease Social History Smoking Status: Never smoker alcohol intake: current alcohol intake frequency: holidays/special occasions only ROS Const Const: Negative for fatigue, weakness, headache(s), frequent falls, difficulty sleeping or excessive sweating Eyes Eyes: Negative for loss of peripheral vision, transient loss of vision, blurry vision, double vision or tunnel vision ENT ENT: Negative for headache(s), dizziness, Nosebleed/epistaxis or balance problems Cardio Chest Pain: No Palpitations: No Edema: None Muscle aches with walking: None Resp Respiratory: Positive for SOB with activity; negative for SOB at rest, SOB orthopnea\SOB lying down, Cough or paroxysmal nocturnal dyspnea GI GI: Negative nausea, vomiting, heartburn or black,tarry stools : Negative for hematuria Musc Musc: Negative for muscle aches/ myalgia, muscle weakness, joint pain or balance problems Skin Skin: Negative non-healing lesions, rash or unusual bruising Neuro Neuro: Negative for dizziness, lightheadedness, near syncope, syncope, orthostatic symptoms, frequent falls, headache(s), weakness, blurry vision, double vision or lack of coordination Momo Hematologic/Lymphatic: Negative for easy bleeding or easy bruising Endo Endo: Negative for fatigue, excessive sweating or increased thirst/drinking Psych Psych: Negative for anxiety or depression Allergy Allergy/Immunology: Negative for hives, Negative for rash Cardiology Exam Const Appearance: cooperative, healthy appearing, no acute distress, well developed and well groomed Nutritional Appearance: average body habitus and well nourished Orientation: alert, awake and oriented x3 Head Head: normal to inspection, normocephalic and atraumatic Ears: hearing grossly normal bilaterally and external ears normal Nose: external nose normal, nares normal, nasal mucous membranes and turbinates normal, septum normal, no nasal discharge Face and Sinus: face symmetric Mouth: oral mucosae normal, tongue normal, oropharynx normal and moist mucous membranes Teeth and gingiva: dentition normal Throat: posterior oropharynx normal, tonsils normal and uvula midline Eyes General: appearance normal, both eyes and all related structures Eyelids: eyelids normal Conjunctivae: conjunctivae normal Pupils: PERRL, normal by confrontation and accommodation normal EOM: EOM intact bilaterally Neck Neck: normal visual inspection, trachea midline and no JVD JVD: +5 Carotids: normal carotid upstroke and bounding pulses Chest Chest inspection: normal inspection of the chest, symmetric chest movement and normal respiratory effort Auscultation: Bilateral: Clear to Auscultation Cardio Palpation: normal PMI Rate: regular rate Rhythm: regular rhythm Heart sounds: S1 normal, S2 normal and normal, physiologic split S2; negative rub, gallop or murmur GI GI: normal to inspection, soft, no hepatosplenomegaly and bowel sounds present Neuro General: alert, awake, oriented x3, gait normal, moves all extremities and no focal sensory deficit Skin Skin: no rashes or lesions noted Extremities Pulses: Normal: Right Femoral Pulse, Left Femoral Pulse, Right Dorsalis Pedis Pulse, Left Dorsalis Pedis Pulse, Right Posterior Tibial Pulse, Left Posterior Tibial Pulse, Right Radial Pulse, Left Radial Pulse Lower Extremity Edema: None: Bilateral Musculoskel Musculoskeletal: No joint tenderness Psych Psychological: normal affect Assessment & Plan Problems 1. Atherosclerosis of coronary artery of [place] heart without angina pectoris I25.10 2. Atrial fibrillation with RVR I48.91 3. Essential hypertension I10 4. Hyperlipidemia E78.5 5. Dyspnea on exertion R06.00 6. Abnormal stress test R94.39 Plan - Ana Carr PA, PA Pt will proceed with diagnostic heart cath. Follow up will be based on findings. Supplemental Info Supplemental Information Echocardiogram 04/2020: -The LV EF is 60 to 65% with LVH. -There is no significant regional wall motion abnormality. -There is trace to mild aortic regurgitation. -There is no significant diastolic dysfunction. -There is no significant Pulmonary Hypertension. -The IVC is within normal limits. -There is no gross PFO or ASD. Stress Test Report 05/2020: Exercise myocardial perfusion stress test. 64-year-old man with a history of coronary artery disease in the proximal LAD which was moderate in a diagonal branch with severe disease. Resting EKG demonstrates normal sinus rhythm with a rate of 65 bpm. T wave inversion is noted in lead III and aVF. Resting blood pressure is 1 and 32/80 8 mmHg. The patient exercised according to regular Oleksandr protocol for a total duration of 6 minutes and 30 seconds. The maximum heart rate attained was 153 bpm which was 99% of max impacted heart rate the maximum workload was 7.7 metabolic equivalents. At rest there were no ST or T wave changes noted suggest ischemia peak exercise was approximately 2.[address] depression noted in leads II, III and aVF and 1.5 to 1.[address] depression noted in lead V4, V5 and V6 suggestive of ischemia. No chest pain was noted the test was terminated due to dyspnea. During recovery the EKG changes returned to baseline. The peak blood pressure was 250/80 mmHg with a rate-pressure product of 31,600. There was exaggerated blood pressure response to exercise. Myocardial perfusion protocol. 14.1 mCi of technetium 99m sestamibi was injected at rest. The patient exercised according to regular Oleksandr protocol for a total duration of 6 minutes and 30 seconds at peak exercise 43.9 mCi of technetium 99m sestamibi was injected stress images were obtained stress and rest images were reconstructed and compared in the short axis vertical long horizontal long axis. Gated images were also obtained Perfusion SPECT analysis: Review of the stress images demonstrate normal uptake of tracer noted in all areas of the myocardium. The resting images similar demonstrate normal uptake of tracer noted in all areas of myocardium. No obvious areas of reversibility are noted suggest ischemia. Gated SPECT analysis: The gated ejection fraction is noted to be 64%. Conclusion: Normal exercise myocardial perfusion stress test with no evidence of ischemia at a high workload. EKG changes suggestive of ischemia present. Balanced ischemia or small area of ischemia cannot be completely excluded. Hypertensive response to exercise is noted. COVID (Procedure Consent) Procedure Criteria Procedure Criteria: Yes Elective The surgeon/proceduralist and patient have discussed in detail the risk of exposure to and/or potential harm posed by the COVID-19 virus with having a surgery/procedure at this time versus the risk of delaying the surgery/procedure. It is not possible to know either the risk of delaying the surgery or procedure or chance of getting an infection with perfect accuracy, but a joint decision was made between the patient and the surgeon/proceduralist to proceed at this time with the scheduled surgery/procedure as indicated on the consent form.
--- NOTE | 2020-07-01 10:36 | CL.D_ITS ---
Patient Name: TESHA POP Study Date: 07/01/2020 Performing: Harsh Kitchen MD Ht: 70.86 inches 180 cm : 1955 Wt: 235.89 lbs 107 kg Age: 64 Gender: male BSA: 2.26 PROCEDURE(S) PERFORMED PL85-YIC/COR/LV CLINICAL PROFILE AND INDICATIONS Indications: Worsening Angina Heart Failure: None Stress/Imaging Date: 06/10/20ress Test with SPECT MPI: Positive Intermediate Risk CAD Presentations: Unstable angina. CONCLUSIONS Significant coronary disease with proximal 80% LAD lesion and high-grade proximal stenosis in the fir st septal gut sorter. The rest of the vessels appeared to have mild disease. RECOMMENDATIONS Referred for immediate PCI DESCRIPTION OF PROCEDURE The patient arrived to the procedure lab. The risks and benefits of the procedure as well as a full d escription of our services here and current unavailability of surgical backup were fully explained to the patient and/or their significant other prior to the catheterization. The Timeout was completed, verifying the correct patient and procedure. The patient's procedural site was prepped and draped in the usual fashion. Local anesthetic was given subcutaneously to right radial region with Lidocaine 2% . Using a modified Seldinger technique, arterial access was obtained via the right radial artery, a 6 Fr sheath was inserted. Left Coronary Artery selective angiography was performed in multiple views u sing a 5 Fr. 4.0 Sublimity catheter. Right Coronary Artery selective angiography was then performed in mu ltiple views using a 5 Fr. 4.0 Sublimity catheter. Left Ventriculography was performed in LEIJA projection using a 5 Fr. Pigtail catheter. LV to AO pullback pressures were then recorded. CORONARY ANGIOGRAPHY DOMINANCE: Right Dominant LEFT HEART ASSESSMENT Left Ventricular Ejection Fraction: by LV Gram 60 % Normal LV wall motion Normal Left Ventricular systolic function LEFT MAIN: Mild calcification, Non-obstructive LEFT ANTERIOR DESCENDING ARTERY: PROX LAD: 80 % Stenosis DIAGONAL 1: Proximal - Mild luminal irregularities SEPTAL: 80 % Stenosis CIRCUMFLEX ARTERY: Mild luminal irregularities RIGHT CORONARY ARTERY: Mild luminal irregularities less than 30% COMPLICATIONS PROCEDURE MEDICATIONS Fentanyl 50 mcg IV Versed 1 mg IV Versed 1 mg IV Oxygen: 2 L/min via nasal cannula Heparin diluted in 23cc Heparinized saline. Patient given 10cc IA of this solution. 07/01/2020 10:15:2 6 Plavix 600 mg PO 07/01/2020 10:33:14 SUMMARY OF HEMODYNAMIC DATA Time AIR REST ECG 08:22:31 AO 120/69 (91) SA 10:17:44 LV 85/6, 10 10:26:11 LV 109/2, 10 10:26:17 LV 110/6, 13 10:27:00 LVp 108/8, 12 10:27:03 AOp 116/71 (92) 10:27:08 Signed By Harsh Kitchen MD On 07/01/2020 10:35:40 Harsh Kitchen MD
--- NOTE | 2020-07-01 12:13 | CL.PCI_ITS ---
PCI Cardiac Cath Report PCI Report: Procedure performed; 1. Successful PCI of 80% proximal LAD, with EMILY-3 flow, predilated and placement of drug-eluting stent, resolute 3 x 22 Postdilated with 3.5 x 20 NC balloon with reduction of stenosis to 0% and achievement of EMILY-3 flow. 2. Placement of TR band to maintain hemostasis of the right radial artery arteriotomy site. Preprocedure diagnosis; 64-year-old patient, underwent cardiac catheterization by his primary continuous pickling line pickler Dr. Kitchen Patient had a positive stress test with symptoms of chest pain. Also he had none obstructive CAD involving the proximal left anterior descending artery Based on his clinical presentation he underwent cardiac catheterization which showed 80% stenosis of the proximal LAD at the site of the tight 90% large septal branch. There is no lesion involving the ostium of the sidebranch diagonal. Procedure in detail; We used EBU 3.5 guide catheter 100 cm, patient was given Plavix 600 mg in the Parachute Supervisor as he had been on Eliquis which is stopped Angiographic views were obtained and lesion in the LAD identified and then we proceed with the run-through 0.014 wire/extra floppy 180 cm straight We crossed the lesion in the LAD place a wire at the distal portion of the left anterior descending artery. Then will proceed with balloon dilatation using 2.5 x 15 mm balloon, followed by placement of a drug-eluting stent resolute 3 x 22 mm, followed by postdilatation using 3.5 x 20 mm NC balloon. Nitroglycerin IC were used x2 Reviewed angiographic from which showed successful placement of the drug-eluting stents to the proximal/mid left anterior descending artery With excellent result and reduction of stenosis from 80% to 0% and EMILY-3 flow. Anticoagulation use in this case is heparin patient tolerated the procedure well with ACT level 252 Following this a TR band applied to right radial artery area to maintain hemostasis of the radial artery arteriotomy site with no complication in the Parachute Supervisor Recommendation; Continue on dual antiplatelet therapy with aspirin and Plavix, it is okay to resume Eliquis in this case Dual antiplatelet will be at least for 1 year. No complication in the Parachute Supervisor Floridalma Bundy MD,[facility] hay rake operator
--- NOTE | 2020-07-01 12:15 | EKG12_ITS ---
Test Reason : POST PCI Blood Pressure : / mmHG Vent. Rate : 078 BPM Atrial Rate : 078 BPM P-R Int : 194 ms QRS Dur : 078 ms QT Int : 356 ms P-R-T Axes : 079 047 -18 degrees QTc Int : 405 ms Normal sinus rhythm ST elevation consider anterolateral injury or acute infarct * ACUTE [place] Abnormal ECG Confirmed by SARITA MACARIO, JANA ([id number]), purchasing expeditor DAVID SANCHEZ ([id number]) on 07/03/2020 9:00:54 AM Referred By: Harsh Kitchen Confirmed By:JANA STEIN MD
[2020-07-01] MEDS: Nitroglycerin (INPATIENT USE) 0.4 MG TAB.SUBL SUBLINGUAL (12:52)
--- NOTE | 2020-07-01 13:58 | NURSING ---
to nurses station at this time reporting that patient complains of chest pain. In room to see patient, pt is moving around in bed, yelling out in pain. Applied O2. Called for stat EKG. Pt rates 10/10 pain sternally. Page to Dr Bundy. sandal parts assembler in room and instructed to call laborer ammunition assembly and speak with Dr Bundy. Dr Bundy states to obtain stat EKG and he will come see patient. Pt states pain is easing up but then comes right back. Dr Bundy in room, RT in room for stat EKG, verbal orders for 1 nitro SL Stat. Notified laborer ammunition assembly of events and possibility of coming back to laborer ammunition assembly. Dr Bundy confirms ST elevation in lead 1 and to call laborer ammunition assembly, pt to go emergently back to laborer ammunition assembly. electroplating laborer RN notified and states that will be up to get patient. Pt attached to stepdown monitor. Remains on 2L NC. SL nitro given. Drapery Hemmer Automatic RN in room, verbal report given to Chalo. Pt transported to laborer ammunition assembly in bed by Chalo. at bedside, aware of events, tearful and states she is worried. sandal parts assembler walked to Drapery Hemmer Automatic waiting room.
--- NOTE | 2020-07-01 14:06 | CHAPLAIN ---
Type of Pastoral Visit _x__ Initial Visit ___ Follow-up Visit ___ On-call Visit ___ General Patient Visit ___ Spiritual Assessment ___ Family Conference ___ Bereavement _x__ Rapid Response ___ Code Blue ___ Other (describe below) Pastoral Care Referral From ___ Patient ___ Family ___ Nurse ___ Physician ___ Tape Machine Tailer ___ Ore Crushing Dust Collector _x__ Other (describe below) Sacrament/Intervention ___ Active listening ___ Anointing ___ Amish ___ Bereavement ___ Communion ___ Elayne exploration ___ ___ Life review _x__ Prayer ___ Reconciliation ___ Sacrament of Sick _x__ Supportive presence ___ Wedding ___ Other (describe below) Pastoral Comments found of patient in the waiting area; sat with the spouse and offered support; conversation and prayer gave support to spouse during process in Financial Project Manager.
--- NOTE | 2020-07-01 14:35 | PCI.CARDCATH ---
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 1. Successful percutaneous coronary intervention/PCI of occluded mid LAD with the spiral dissection 2. Anterior ST elevation myocardial infarction with EMILY 0 flow in the LAD and occluded mid LAD 3. Successful PCI with placement of drug-eluting stent/synergy 2.5 x 38mm overlapping 2.5 x 32mm and overlap with a 2.5 x 16 mm Synergy to the distal LAD. Reduction of occluded mid LAD with EMILY 0 flow to 0% stenosis and EMILY-3 flow and still mid LAD spiral dissection is persistent However there is EMILY-3 flow no change in the electrocardiogram resolution of the ST segment elevation and also symptoms of chest pain resolved. Patient remained stable hemodynamically maintaining , blood pressure systolic of around 130 mmHg with no need for inotropic support or intra-aortic balloon pump. Procedure in detail;. 64-year-old patient, underwent PCI and stent of the proximal- mid LAD today using drug-eluting stent and was stable in the Quarrying Specialist and transferred to the PCU He developed severe retrosternal chest pain with diaphoresis and change in the electrocardiogram with ST elevation noted in the anterior lead. Patient brought to the cardiac catheterization lab as an emergency. Access obtained from the right common femoral artery and placement 6 Hungarian sheath We , proceed with the guide catheter 6 Hungarian 3.5 EBU guide catheter engaged the left main and angiographic view obtained which clearly demonstrated the spiral dissection of the mid LAD and a occluded portion of the mid LAD Then will proceed with 0.014 run-through extra floppy 180 cm straight wire across the lesion in the mid LAD, then we proceed with a balloon dilatation using 2.5 mm balloon. Still there was a EMILY 0 flow in the mid LAD, will proceed with the multiple balloon inflations using the emerge MR 2.5 x 12mm balloon, this followed by placement of stent in the mid LAD 2.5 x 38 mm Synergy MR, overlapped with 2.5 x 32 mm Synergy and still there was a lesion noted in the distal mid to distal LAD nitroglycerin was given however seems there is a no evidence of dissection in that area however still persistent lesion requiring to stented with 2.5 x 60 mm Were able to achieve a EMILY-3 flow in the LAD Patient symptoms of chest pain resolved and ST segment elevation improved. Prior to that with the placement of the first stent patient went into V. fib was shocked with 200 followed by 300x2 amiodarone IV was given , 2.5 mg of Lopressor/beta-cresencio was given. Also be started on Integrilin infusion. The ACT level at this time after he was given the heparin is 312. And we kept him on low-dose nitroglycerin. Circumflex selective right common femoral artery radiograph obtained and a suture applied to right common femoral artery sheath. And placed for arterial line monitoring over the night. Assessment and plan; This patient developed acute in-stent thrombosis with a dissection of the proximal to mid LAD and presented with,severe retrosternal chest pain while in PCU with ST elevation noted in the anterior lead , Patient brought as an emergency to the Quarrying Specialist underwent successful PCI with covering of the dissection area and achievement of EMILY-3 flow in the LAD and patient remained stable clinically. He will be monitored over the night on Integrilin infusion and also we will change the Plavix to Brilinta we will continue low-dose aspirin he will be seen and followed by Dr. Kitchen and also will follow up with him. I Explained the finding of cardiac catheterization to the patient and and patient will be treated with medical therapy. Floridalma Bundy MD,[facility]
--- NOTE | 2020-07-01 14:36 | NURSING ---
Pt arrives to ICU with from labor relations manager with integrilin infusing at 2 mcg/kg/min and nitroglycerin at 5 mcg/min
--- NOTE | 2020-07-01 14:57 | RAD_ITS ---
STUDY: X-RAY CHEST REASON FOR EXAM: Male, 64 years old. Chest pain TECHNIQUE: Single AP portable view of the chest. COMPARISON: 04/27/2020 FINDINGS: Multiple external leads overlying the chest. The lungs are clear and expanded. There is no demonstrated pleural abnormality. Normal size heart. Normal mediastinum and lisa. Normal visualized pulmonary arteries. Normal visualized aortic arch and descending thoracic aorta. Normal visualized thoracic spine. Normal visualized ribs, clavicles, and shoulders. There is no demonstrated abnormality of the visualized soft tissue structures of the upper abdomen. RAD/Chest 1 View (Portable) IMPRESSION: Normal x-ray examination of the chest. Electronically Signed: Dirk Nunez MD at 16:19 EST Tel , Service support ,
--- NOTE | 2020-07-01 14:57 | EKG12_ITS ---
Test Reason : POST SURGERY Blood Pressure : / mmHG Vent. Rate : 083 BPM Atrial Rate : 047 BPM P-R Int : 000 ms QRS Dur : 070 ms QT Int : 350 ms P-R-T Axes : 085 059 -30 degrees QTc Int : 411 ms Poor data quality, interpretation may be adversely affected Sinus bradycardia ST elevation consider anterolateral injury or acute infarct ACUTE VA / STEMI Abnormal ECG Confirmed by SARITA MACARIO, JANA ([id number]), technical editor DAVID SANCHEZ ([id number]) on 07/03/2020 9:02:48 AM Referred By: Harsh Kitchen Confirmed By:JANA STEIN MD
[2020-07-01] MEDS: 0.9% Normal Saline 1,000 ML 75 ML IV (17:00)
[2020-07-01] MEDS: Nitroglycerin Infusion 250 ML 9 MG IV (17:39)
[2020-07-01 18:25] LABS: Absolute Lymphocyte Count 1.38 X10^3/uL (0.83-4.51); Basophil# 0.04 X10^3/uL; Basophil% 0.4 % (0-1); Eosinophil# 0.05 X10^3/uL; Eosinophils% 0.5 % (0-5); Hematocrit 44.1 % (40-54); Hemoglobin 15.2 g/dL (13.0-16.5); Lymphocyte # 1.38 X10^3/ul (4.0); Lymphocyte % 12.5 % (19-41); Mean Corp Hgb Conc 34.5 g/dL (32-36); Mean Corpuscular Hgb 31.5 pg (27.0-32.0); Mean Corpuscular Volume 91.3 fL (80-94); Mean Platelet Vol. 9.5 fl (6.2-12.0); Monocyte# 0.58 X10^3/uL; Monocyte% 5.2 % (0-10); NRBC Flagged by Analyzer 0 % (0-5); Neutrophil % 81.1 % (47-70); Platelet Count 236 K/mm3 (150-450); RBC Distribution Width CV 12.8 % (11.6-14.6); RBC Distribution Width SD 42.8 fl (35.1-43.9); Red Blood Count 4.83 M/mm3 (4.6-6.2); White Blood Count 11.1 K/mm3 (4.4-11.0)
[2020-07-01 18:34] LABS: International Normalized Ratio 1.2; Prothrombin Time (Protime)PT. 14.4 SECONDS (11.7-14.9)
[2020-07-01 18:36] LABS: Partial Thromboplast Time 33.2 Seconds (24.1-36.2)
[2020-07-01 18:37] LABS: Anion Gap 9 (5-15); BUN 15 mg/dL (7-18); BUN/Creat Ratio 16.4 RATIO (10-20); Calcium,Total 8.6 mg/dL (8.5-10.1); Chloride 106 mmol/L (98-107); Creatinine, Serum 0.91 mg/dL (0.70-1.30); EST Glomerular Filtration Rate 88 mL/min (>60); Est Glom Filt Rate - Afr Amer 107 mL/min (>60); Estimated Creatinine Clearance 85.05 ml/min; Glucose 114 mg/dL (74-106); Potassium 3.8 mmol/L (3.5-5.1); Sodium Level 140 mmol/L (136-145)
[2020-07-01] MEDS: Atorvastatin Calcium 20 MG Tablet PO (21:28)
[2020-07-01] MEDS: Metoprolol Tartrate 25 MG Tablet 75 MG PO (21:37)
[2020-07-01] MEDS: HYDROcodone Bitartrate/Apap 5/325 Tablet PO (21:55)
[2020-07-02] VITALS (33 sets, daily range): BP systolic 120–157; BP diastolic 66–80; PULSE 63–75; RESP 12–20; TEMP 36.7–36.9; O2SAT 93–94
[2020-07-02] MEDS: Nitroglycerin Infusion 250 ML 18 MG IV (00:10)
[2020-07-02 03:51] LABS: Hematocrit 39.8 % (40-54); Hemoglobin 13.7 g/dL (13.0-16.5); Mean Corp Hgb Conc 34.4 g/dL (32-36); Mean Corpuscular Hgb 31.8 pg (27.0-32.0); Mean Corpuscular Volume 92.3 fL (80-94); Mean Platelet Vol. 9.5 fl (6.2-12.0); Platelet Count 221 K/mm3 (150-450); RBC Distribution Width CV 12.8 % (11.6-14.6); RBC Distribution Width SD 43.8 fl (35.1-43.9); Red Blood Count 4.31 M/mm3 (4.6-6.2); White Blood Count 10.7 K/mm3 (4.4-11.0)
[2020-07-02 04:04] LABS: ALB/GLOB Ratio 1.1 RATIO (0.9-2.4); AST(SGOT) 117 U/L (15-37); Alanine Aminotransfer ALT/SGPT 48 U/L (16-61); Albumin, Serum 3.3 g/dL (3.2-5.0); Alkaline Phosphatase 60 U/L (45-117); Anion Gap 8 (5-15); BUN 14 mg/dL (7-18); BUN/Creat Ratio 17.7 RATIO (10-20); Calcium,Total 8.2 mg/dL (8.5-10.1); Chloride 106 mmol/L (98-107); Creatinine, Serum 0.79 mg/dL (0.70-1.30); EST Glomerular Filtration Rate 104 mL/min (>60); Est Glom Filt Rate - Afr Amer 125 mL/min (>60); Estimated Creatinine Clearance 77.39 ml/min; Globulin 2.9 g/dL (2.2-4.2); Glucose 112 mg/dL (74-106); Potassium 3.6 mmol/L (3.5-5.1); Protein, Total 6.2 g/dL (6.4-8.2); Sodium Level 140 mmol/L (136-145)
[2020-07-02] MEDS: HYDROcodone Bitartrate/Apap 5/325 Tablet PO (04:05)
--- NOTE | 2020-07-02 04:44 | EKG12_ITS ---
Test Reason : AM EKG Blood Pressure : / mmHG Vent. Rate : 063 BPM Atrial Rate : 063 BPM P-R Int : 184 ms QRS Dur : 102 ms QT Int : 386 ms P-R-T Axes : 067 042 -22 degrees QTc Int : 395 ms Sinus rhythm with marked sinus arrhythmia ST elevation consider anterior injury or acute infarct * ACUTE [place] Abnormal ECG Confirmed by SARITA MACARIO, JANA ([id number]), photograph editor MIKALA MAR ([id number]) on 07/05/2020 7:46:16 AM Referred By: Harsh Kitchen Confirmed By:JANA STEIN MD
[2020-07-02] MEDS: 0.9% Saline Lock 10 ML Syringe IV (06:19)
--- NOTE | 2020-07-02 07:48 | CRPHASE1 ---
Patient Communication PHII Cardiac Rehab Discussed with Patient:: Yes Guide to Cardiac Rehab Given to Patient:: Yes Cardiac Rehab Facility Choice List Given to Patient:: Yes Choice Program [facility] CR PHII:: Communication Given to CR, Refer to [facility] Surgery Consultant:: Floridalma Bundy Phase II Cardiac Rehab:: Yes Sessions:: 36 sessions - 3 days/wk, 12 weeks Cardiac Rehabilitation Info Cardiac Rehabilitation Program Information: Cardiac Rehabilitation is important for patients like you who are recovering from a heart problem. Cardiac rehabilitation programs are recognized as integral to the continued care of the patient with coronary heart disease. The cardiac rehabilitation program is designed to optimize a patient's physical, psychological, and social functioning. Health ambulatory care nurse work in cardiac rehabilitation programs and assist you with getting the treatments you need to get stronger and healthier - like exercise, healthy eating habits, and medications. Cardiac rehabilitation has been show to help people with heart problems live longer and have better life enjoyment than people who do not go to cardiac rehabilitation. Please contact the Cardiac Rehabilitation Program at [facility] at in two weeks if you have not heard from them.
--- NOTE | 2020-07-02 07:49 | CRPH1.INSTRU ---
General Education CAD and cardiac anatomy and function:: Patient communicates acknowledgment Explanation of diagnoses and procedures:: Patient communicates acknowledgment Sign/Symptoms of SD:: Patient communicates acknowledgment Antiplatelet therapy: Patient communicates acknowledgment Proper use of NTG-SL: Patient communicates acknowledgment Emergency procedures and activation of EMS: Patient communicates acknowledgment Compliance of all prescribed medications: Patient communicates acknowledgment Dyslipidemia Patient Dyslipidemia Risk Factors Are:: Total Cholesterol - 167, Triglycerides - 185, HDL - 37, LDL - 93 Recommendations Include:: Lipid profile provided, Reviewed NCEP/ATP guidelines, Therapeutic Lifestyle Change dietary guidelines Dyslipidemia Response Code:: Patient communicates acknowledgment Overweight/Obesity Patient Overweight/Obesity Risk Factors Are:: Obesity - > or = 30 Recommendations Include:: Weight loss of 5-10%, Reduced calorie diet, Exercise 5-7 times/week Overweight/Obesity:: Patient communicates acknowledgment, Needs reinforcement Hypertension Recommendations Include:: Maintain BP <130/85, DASH dietary guidelines, Decrease/maintain normal body weight, Moderation of ETOH Hypertension:: Patient communicates acknowledgment Heart Disease Patient Heart Disease Risk Factors Are:: Previous cardiac event Recommendations Include:: Educated family members of their risk, Educated family members of importance of prevention of heart disease Heart Disease Response Code:: Patient communicates acknowledgment
--- NOTE | 2020-07-02 08:19 | EKG12_ITS ---
Test Reason : VTACH Blood Pressure : / mmHG Vent. Rate : 097 BPM Atrial Rate : 097 BPM P-R Int : 150 ms QRS Dur : 082 ms QT Int : 336 ms P-R-T Axes : 081 053 -40 degrees QTc Int : 426 ms Normal sinus rhythm Anteroseptal infarct , possibly acute Lateral injury pattern * ACUTE [place] Abnormal ECG Confirmed by SARITA MACARIO, JANA ([id number]), features editor MIKALA MAR ([id number]) on 07/05/2020 7:46:03 AM Referred By: Harsh Kitchen Confirmed By:JANA STEIN MD
--- NOTE | 2020-07-02 08:30 | NURSING ---
Pt went into Vfib/Torsades appearing rhythm at approx 0818 as identified on front desk monitor. Pt without awake but without pulse and agonal respirations when code team entered room. CPR started immediately and Dr. Serrato at bedside. See code blue documentation. Pt noted to be in SR with immediate return to [facility] at approx 0823 as noted on front desk monitor. Pt responsive with a pulse at this time. Pt taken back to poultry hatchery laborer emergently. Family notified of events by Aline Adkins ICU director via telephone.
[2020-07-02 08:36] LABS: Absolute Lymphocyte Count 4.52 X10^3/uL (0.83-4.51); Absolute Neutrophil Count 10.9 X10^3/uL (2.0-7.7); Basophil# 0.06 X10^3/uL; Basophil% 0.4 % (0-1); Eosinophil# 0.11 X10^3/uL; Eosinophils% 0.7 % (0-5); Hematocrit 44.2 % (40-54); Hemoglobin 15.3 g/dL (13.0-16.5); Lymphocyte # 4.52 X10^3/ul (4.0); Lymphocyte % 26.9 % (19-41); Mean Corp Hgb Conc 34.6 g/dL (32-36); Mean Corpuscular Hgb 32.4 pg (27.0-32.0); Mean Corpuscular Volume 93.6 fL (80-94); Mean Platelet Vol. 9.5 fl (6.2-12.0); Monocyte# 1.09 X10^3/uL; Monocyte% 6.5 % (0-10); NRBC Flagged by Analyzer 0 % (0-5); Neutrophil # 10.94 X10^3/uL (2.7-7.7); Neutrophil % 65.1 % (47-70); Platelet Count 246 K/mm3 (150-450); RBC Distribution Width CV 13.2 % (11.6-14.6); Red Blood Count 4.72 M/mm3 (4.6-6.2); White Blood Count 16.8 K/mm3 (4.4-11.0)
[2020-07-02 08:45] LABS: International Normalized Ratio 1.2; Partial Thromboplast Time 25.4 Seconds (24.1-36.2); Prothrombin Time (Protime)PT. 14.2 SECONDS (11.7-14.9)
[2020-07-02 08:51] LABS: Anion Gap 13 (5-15); BUN 15 mg/dL (7-18); BUN/Creat Ratio 13.5 RATIO (10-20); Calcium,Total 8.5 mg/dL (8.5-10.1); Chloride 106 mmol/L (98-107); Creatinine, Serum 1.11 mg/dL (0.70-1.30); EST Glomerular Filtration Rate 70 mL/min (>60); Est Glom Filt Rate - Afr Amer 85 mL/min (>60); Estimated Creatinine Clearance 69.72 ml/min; Glucose 147 mg/dL (74-106); Phosphorus 3.4 mg/dL (2.5-4.9); Potassium 3.1 mmol/L (3.5-5.1); Sodium Level 137 mmol/L (136-145)
--- NOTE | 2020-07-02 09:58 | NURSING ---
[facility] resident called into nurse's station. Gave report to her.
--- NOTE | 2020-07-02 10:00 | EKG12_ITS ---
Test Reason : POST SURGERY Blood Pressure : / mmHG Vent. Rate : 085 BPM Atrial Rate : 085 BPM P-R Int : 212 ms QRS Dur : 188 ms QT Int : 474 ms P-R-T Axes : 000 048 -71 degrees QTc Int : 564 ms Poor data quality, interpretation may be adversely affected Sinus rhythm with 1st degree A-V block ST-Segment Abnormality-Consider Myocardial Injury/Acute LA (Lateral) Abnormal ECG Recommend: Repeat EKG Confirmed by SARITA MACARIO, JANA ([id number]), assistant production editor DAVID SANCHEZ ([id number]) on 07/03/2020 9:03:59 AM Referred By: Harsh Kitchen Confirmed By:JANA STEIN MD
--- NOTE | 2020-07-02 11:23 | CASEMGMT ---
RN CM Note: RN CM assessment deferred today due to code blue and emergent return to petroleum refinery laborer. Swetha BSN HALIMA ACM
--- NOTE | 2020-07-02 12:18 | CL.PCI_ITS ---
PCI Cardiac Cath Report PCI Report: Procedure performed; 1. Left heart catheterization 2. Selective coronary therapy 3. Left ventricle gram 4. Placement of intra-aortic balloon pump. Preprocedure diagnosis 64-year-old patient, underwent cardiac catheterization by his primary business writer Dr. Kitchen Patient had a PCI and stent of the proximal to mid LAD, he developed acute in- stent thrombosis and noted he had a dissection in the mid LAD Brought back to the Ice Platform Supervisor yesterday where he had a PCI and stent of the mid LAD using drug-eluting stent next. And he was kept over the night on Integrilin, Brilinta and aspirin and had a right common femoral artery sheath, sutured in place Evidently this morning July 02, 2020 at 08:18 patient went into torsade patient was shocked and converted to sinus rhythm. And V. fib given mag oxide 2 g and brought to the emergency to the Ice Platform Supervisor. Were cardiac catheterization was performed. To the Ice Platform Supervisor he was stable hemodynamically and he was not having any active chest pain. Procedure in detail; We will proceed with EBU guide catheter, 3.5 through the right common femoral artery sheath and cannulated the left main and multiple views of the left wrist were obtained Following this the catheter exchanged for 5 [place] JR4 catheter and selective angiographic view of right coronary artery obtained Following this catheter exchanged for 5 [place] pigtail catheter the ventricular intensity cardioprotection. As the patient was unstable with episode of V. fib and also has a spiral dissection in the LAD which had been stented we proceed with placement of intra- aortic balloon pump and transferred the patient for a surgical backup facility. Catheter used in the Ice Platform Supervisor 1. 6 [place] EBU guide catheter 2. 5 [place] JR4 3. 5 [place] pigtail catheter 4. Intra-aortic balloon pump placement Findings; Hemodynamic; Anteroapical hypokinesia with ejection fraction in the range of around 40 to 45% No mitral regurgitation noted No systolic gradient across aortic valve. Coronary angiography findings; 1. Left main is patent, trifurcating into LAD, ramus intermedius and the left circumflex 2. LAD stent is patent, with some haziness noted in the proximal LAD, EMILY-3 flow noted in the LAD and no evidence of dissection noted 3. The ramus intermedius had a proximally calcified lesions with EMILY-3 flow in the ramus intermedius The left circumflex proximally had nonobstructive atherosclerosis Right: There is a large dominant. Conclusion and recommendations; This patient is 64-year-old who had proximal/mid LAD lesion underwent successful PCI and stenting, develop ST elevation in the anterior lead with a dissection of the mid LAD requiring PCI and stenting of the mid LAD and achievement of EMILY-3 flow Had episode of V. fib/torsade shocked and started on mag and potassium Intra-aortic balloon pump placed and patient was very stable clinically he does not have any symptoms of chest pain. And he was sent by helicopter to the tertiary facility with a surgical backup for observation and for plan of further review of the angiographic from 9 management. Was on Integrilin, heparin, nitroglycerin, intra-aortic balloon pump, he was given Brilinta and aspirin. Family .daughters were in the Ice Platform Supervisor and explained all the finding of the cardiac catheterization and angiographic films reviewed with the Ice Platform Supervisor team, the very business writer Dr. Kitchen. Floridalma Bundy MD,[facility] student success coach
== END 2020-07-02 11:00 | disposition short-term general hospital (02) | DRG 270 ==
LOC: CLSP 15:32 → ICU 15:32
PROVIDERS: Admitting Provider Internal Medicine Interventional Cardiology; PCP Family Medicine; Referring Provider Internal Medicine Cardiovascular Disease; Visit Provider Internal Medicine Interventional Cardiology
DX: I97.190 Other postprocedural cardiac functional disturbances following cardiac surgery (principal); I21.09 ST elevation (STEMI) myocardial infarction involving other coronary artery of anterior wall; I25.42 Coronary artery dissection; I49.01 Ventricular fibrillation; T82.867A Thrombosis due to cardiac prosthetic devices, implants and grafts, initial encounter; I25.110 Atherosclerotic heart disease of native coronary artery with unstable angina pectoris; I48.0 Paroxysmal atrial fibrillation; E78.5 Hyperlipidemia, unspecified; Z20.822 Contact with and (suspected) exposure to COVID-19; G47.33 Obstructive sleep apnea (adult) (pediatric); E66.9 Obesity, unspecified; Z79.01 Long term (current) use of anticoagulants; I25.2 Old myocardial infarction
CPT/HCPCS: 33967; 36415; 71045; 80048; 80053; 83735; 84100; 85025; 85027; 85610; 85730; 87426; 92928; 92941; 93005; 93458; 99152; 99153; J0153; J7030; J7040; Q9967; A4216; C1725; C1769; C1874; C1887; C1894; C9600; C9606; J1327; J3475

== ENCOUNTER 2020-07-07 17:53 | Emergency (ER) | payer MEDICARE, OTHER, SELFPAY ==
[2020-07-01 13:51] VITALS: BMI 32.9
[2020-07-07 17:54] VITALS: BP 104/80; PULSE 83; RESP 16; TEMP 36.6; O2SAT 97; BMI 31.5
--- NOTE | 2020-07-07 18:19 | ED.VISSUMM ---
- ER Visit Summary Date of Service: 07/07/20 Chief Complaint: Nosebleed History of Present Illness: The patient is a 64 M presenting with nosebleed. Patient states this started around 2 PM. He has bleeding from his left naris. He put a tampon in prior to arrival. He is currently on Eliquis Brilinta and aspirin. He had stents placed last week. He denies other complaints. Physical Examination: Vitals are stable. Patient is afebrile. Alert no acute distress. HEENT exam dried blood left nares Neck is supple. Lungs are clear and equal bilaterally. Heart is regular rate and rhythm. Abdomen is soft nontender nondistended. Extremities are unremarkable. Skin is warm and dry. Remainder of exam is unremarkable. Emergency Department Course and Treatment: Patient's tampon was removed from left nare. He blew his nose to clear the clots. Hayden mix was instilled on cotton ball. Rhino Rocket without balloon was placed. Patient continued to have oozing with this. Rhino Rocket was removed. Topical TXA was instilled into the left nare. Rhino Rocket with balloon was placed. Patient was observed. He has no further active bleeding. He will follow-up with ENT. Advised return to ED for worsening complaints. Disposition: Discharge home Impression: Epistaxis, nasal packing This note was generated with [employer] dictation software. It may contain incorrect words, spelling, and punctuation that were not noted in review of the chart prior to signing ED Disposition - Plan for ED Patient: Referrals: River Cho MD [Primary Care Provider] -
[2020-07-07] MEDS: TRANEXAMIC ACID 1,000 MG/10 ML ML OPERA.SITE (19:22)
[2020-07-07] MEDS: Mixture 30 ML Bottle TOPICAL (19:22)
[2020-07-07 20:09] VITALS: BP 131/71; PULSE 92; RESP 15; O2SAT 98
--- NOTE | 2020-07-07 20:47 | DCINST.ED_ITS ---
ED Disposition - Plan for ED Patient: Instructions: Nosebleed Prescriptions: Cephalexin [Keflex] 500 mg PO Q12 #6 cap Prescription Printed Hydrocodone Bitart/Apap 5-325 [[place] 5MG-325MG] 1 tab PO Q6H PRN PRN 3 Days #10 tab PRN Reason: Pain Prescription Printed Referrals: River Cho MD [Primary Care Provider] - Live Aguilar MD [STAFF PHYSICIAN] -
[2020-07-07] MEDS: HYDROcodone Bitartrate/Apap 5/325 Tablet PO (20:54)
[2020-07-07] MEDS: Cephalexin 250 MG Capsule 500 MG PO (20:54)
== END 2020-07-07 21:01 | disposition home or self-care (01) ==
LOC: ED 18:40
PROVIDERS: Emergency Provider Emergency Medicine; PCP Family Medicine
DX: R04.0 Epistaxis (principal); I25.10 Atherosclerotic heart disease of native coronary artery without angina pectoris; Z79.01 Long term (current) use of anticoagulants; Z79.02 Long term (current) use of antithrombotics/antiplatelets; Z79.82 Long term (current) use of aspirin; Z79.899 Other long term (current) drug therapy
CPT/HCPCS: 30901; 99281; 99282

== ENCOUNTER → 2020-07-15 12:24 | Outpatient (CLI) | payer MEDICARE, OTHER, SELFPAY ==
[2020-07-12 09:34] VITALS: BMI 31.6
== END ==
PROVIDERS: PCP Family Medicine; Referring Provider Physician Assistant Medical; Visit Provider Physician Assistant Medical
DX: I46.9 Cardiac arrest, cause unspecified (principal); I49.01 Ventricular fibrillation; I48.91 Unspecified atrial fibrillation; I25.10 Atherosclerotic heart disease of native coronary artery without angina pectoris; I48.0 Paroxysmal atrial fibrillation; I10 Essential (primary) hypertension
CPT/HCPCS: 93225; 93226

== ENCOUNTER → 2020-07-17 08:18 | Outpatient (CLI) | payer MEDICARE, OTHER, SELFPAY ==
[2020-07-12 09:34] VITALS: BMI 31.6
--- NOTE | 2020-07-17 08:29 | CR.ITP_ITS ---
Diagnosis - General Information Admitting Diagnosis: Z95.5 PCI with stent Personal Learning Style:: Audio/Visual Barriers to Learning: No Barriers Stage of change r/t lifestyle modifications:: Contemplation Gave educational material for:: Treating Heart Disease, Emotions & Heart Disease, Stress Management & Relaxation, Sleep Disorders & Heart Disease, How The Heart Works, What it means to have Heart Disease, How Coronary Artery Disease is Diagnosed, Heart Procedures, What Heart Medications Do, Risk Factors & Modifications, Living an Active Life, Nutrition - Education/Goals Cardiac Rehabilitation Goals: 1. Maintain the individual as the primary focus of care. 2. To improve the patient's quality of life. 3. Identification of cardiac risk factors and provide cardiac risk factor management. 4. Enhance the psychosocial status of the patient. 5. Reconditioning enough to allow the patient to resume customary activities. 6. Control symptoms of cardiac disease Personal Goals: Initial Assessment: Participate in home exercise program, Improve diet and eating habits (eat healthier) Scale for measuring improvement of personal goals: Enter appropriate number in Comments. 2 = Unchanged. 3 = Slightly Better. 4 = Moderate Improvement. 5 = Met my Goal - Diagnosis & Disease Process Outcomes/Goals: Pt IDs own risk factors & lifestyle modifications by Session 10, Verbalizes symptoms of angina & response by session 3., Pt independently manages, Other Additional Outcomes/Goals: Plan/Interventions: Assist Pt to ID & engage in lifestyle modification to reduce CVD risk, Instruct on individual risk factors, Review symptoms of angina & emergency actions, Review secondary diagnosis & identify educational needs., Other see comment 30 day Reassessments:: Not Met 30 day Reassessments:: Not Met 30 day Reassessments:: Not Met 30 day Reassessments:: Not Met Final Reassessments:: Not Met - Safety Referral to Physical Therapy: No Referral to [facility] Case Management: No Fall Risk Assessed:: Yes Assistive Devices:: None Exercise - Initial Assessment - Visit Date of Eval: 07/17/20 - initial eval Mets: Pre-: >7 METS for 30 minutes by discharge - Physician Prescribed Exercise Modalities: Treadmill, Biodyne, Rower, Airdyne, NuStep, SciFit Frequency: 3x/week for 12 weeks [36 sessions] Intensity: 60-80% of age predicted maximum heart rate reserve Current METSs:: 2.5 Target Heart Rate:: 100-131 Resting Blood Pressure: 116/54 EKG Type: NSR per april EKG/ History of A-fib - Outcomes & Goals Goals:: Verbalizes understanding of THR, RPE & goal METS by session 6, Documents in home exercise log/reports 30 min aerobic 5 day/wk by DC, Demonstrates accurate pulse taking by DC, Other additional outcome/goals: see below - Intervention & Plan Exercise Program Goals: Instruct on personal THR & RPE, Instruct on MET level & personal MET goal, Show patient to take own pulse /validate performance until accurate, Instruct on home exercise, Other additional plan/int - Physical Activity Home Exercise Physical Activity - Home Exercise: Safe Exercise, Warm-up, Self-monitoring, Cool-Down, Home Exercise > 30 min Daily, Sitting Time <3 hours/daily - Outcomes & Goals Outcomes/Goals: Demonstrates correct Warm-up/exercise Cool-Down (S3) if = 2.5 METs, Verbalizes symptoms of exercise intolerance by Session 3 (S3), Demonstrate safe equipment use (S3) & follows exercise prescrition (6), Other: See below - Intervention & Plan Plan/Intervention: Instruct warm-up & cool-down if exercising at > 2 METs, Instruct on symptoms of exercise intolerance & actions to take, Instruct & monitor on saf, Assess intial functional capacity & safety risk, Other See below Nutrition - Initial Assessment - Program Goals Nutrition Program Goals: LDL <100 optimal. 100 - 129 Near optimal. 130 - 159 Borderline High. 160 - 189 High. Total Cholesterol <200 desirable. 200 - 239 Borderline High. >/= 240 High. HDL < 40 Low >/=60 High. Triglycerides <150 desirable. <199 optimal. VlDL 5 - 40. HgbA1C <7%. BMI <25 Patient has diagnosis of Hyperlipidemia (ICD E78)?: Yes - Visit Date of Assessment:: 07/17/20 - initial eval - Cholesterol/Lipids Determine presence & major risk factors that modify LDL goal: Hypertension or hypertensive medication, Low HDL cholesterol <40 mg/dL*, Family history of premature CHD in Male < 55 years: female <65 yearsFa, Age men > 45 years; women >/= 55 years Outcomes/Goals: Pt IDs own risk factors & lifestyle modifications by Session 10, Verbalizes symptoms of angina & response by session 3., Pt independently manages, Other Additional Outcomes/Goals: Intervention/Plan: Advocate for lipid panel cholesterol medication if applicable, Instruct on personal lipid levels & lipid goals/NCEP guidelines, Instruct on cholesterol, Other additional plan/int Referral to dietitian:: No - Diabetes (Other Core Measures) Diabetes Type: Not Applicable - Weight Mgt (Other Care) Height: 5 ft 11 in Weight:: 107.048 kg BMI: 32.9 Outcomes/Goals: Pt sets, maintains & shows weight loss goal & trend during rehab, Other additional outcomes/goals Intervention/Plan: Instruct on ideal BMI & set weight loss goal w/patient, Assist pt to ID & incorporate diet changes for weight loss by S9, Refer to Structured Weight Loss program as appropriate, Encourage goal of using 250- 300dcal per session for weight loss, Other additional plan/interventions - Healthy Eating Habits Will attend diet classes:: Yes Outcomes/Goals:: Consume diet rich in vegs,fruits,whole grain/high fiber,fish,lean meat, Limit sat/trans fats,cholesterol & added salts & sugars, Other additional outcome/goals: Intervention/Plan:: Assess current eating habits, Other Additional plan/interventions - Education Gave educational materials for:: Signs & symptoms of hypoglycemia, Signs & symptoms of hyperglycemia, Relate diabetes to coronary artery disease, Healthy eating Medical - Initial Assessment - Visit Date of Eval: 07/17/20 - initial eval - Medication Compliance Preventative Medication(s):: Aspirin, Statin/lipid, Beta cresencio, Eliquis H/O mental health issues: depression, anxiety, or addiction?: No Doesn?t believe in the benefits of treatment?: No Believes medications are unnecessary or harmful?: No Has a concern about medication side effects?: No Expresses concern over the cost of medications?: No Outcomes/Goals: Verbalizes medications,desired effect & common side effects @ DC, Pt self-reports following medication regimen, Keeps card in wallet w/medications listed by DC, Other additional outcome/goals: Interventions/plans: Instruct on medication effects & side effects, Review medication list w/patient every two weeks, Instruct importance of taking meds as ordered & assist problem solving, Other additional - Tobacco Use Tobacco Use: Non-smoker Do you use smokeless tobacco?: No - Hypertension Hypertension Diagnosis:: Hypertension ICD-10 I10 [place] [employer] Hypertension Guidelines: [place] [employer] Hypertension Guidelines. Normal BP Less than 120/80. Elevated BP 120/80. Hypertension Stage 1: BP 130-139/80-89. Hypertesnion Stage 2: BP 140 or higher/90 or higher. Hypertension Crisis: BP higher than 180/120 Patient Health Questionnaire Initial Assessment 1. Little interest or pleasure in doing things: Not at all 2. Feeling down, depressed, or hopeless: Not at all 3. Trouble falling or staying asleep, or sleeping too much: Not at all 4. Feeling tired or having little energy: Not at all 5. Poor appetite or overeating: Not at all 6. Feeling bad about yourself -- or that you are a failure or have let yourself or your family down: Not at all 7. Trouble concentrating on things, such as reading the newspaper or watching television: Not at all 8. Moving or speaking so slowly that other people could have noticed. Or the opposite - being so fidgety or restless that you have been moving around a lot more than usual: Not at all 9. Thoughts that you would be better off , or of hurting yourself in some way: Not at all How difficult have these problems made it for you to do your work, take care of things at home, or get along with other people?: Not difficult at all Total Score: 0 EVELYN-Q SV Test - Statements CAD is a disease of the arteries in the heart: False Examples of risk factors for heart disease: True Angina is chest pain or discomfort: True The benefits of resistance training include: True Eating more meat and dairy products: False Anti-platelet medications such as aspirin are important: I Don't Know The only effective way to manage stress: False An exercise warm-up slowly increases heart rate: True Prepared, processed foods usually have high sodium: True Depression is common after a heart attack: True The statin medications lower cholesterol: True To control blood pressure, lower the amount of sodium: I Don't Know If someone gets chest discomfort during walking: False Transfats are partially hydrogenated vegetable oils: True Sleep apnea that is not treated increases the risk: False To control cholesterol, one should become a vegetarian: False Someone knows if he/she is exercising at the right level: I Don't Know Diabetes cannot be prevented with exercise & health eating: False Stress is a large risk for heart attack: True A diet that can help lower blood pressure is rich in: True - Total Score Total Correct Responses: 17 Self-Efficacy Initial Assessment We would like to know how confident you are in doing certain activities. Please select your confidence level for:: Select your confidence level for the following using the scale 1-10 where 1 is not at all confident and 10 is totally confident. Your score is the average of all 6 responses. Fatigue: How confident are you that you can keep the fatigue caused by your disease from interfering with the things you want to do? Select Number: 10 Physical Discomfort or Pain: How confident are you that you can keep the physical discomfort or pain of your disease from interfering with the things you want to do? Select Number: 10 Emotional Distress: How confident are you that you can keep the emotional distress caused by your disease from interfering with the things you want to do? Select Number: 10 Other Symptoms or Health Problems: How confident are you that you can keep other symptoms or health problems from interfering with the things you want to do? Select Number: 10 Different Tasks and Activities: How confident are you that you can do the different tasks and activities needed to manage your health condition so as to reduce your need to see a doctor? Select Number: 10 Medication: How confident are you that you can do things other than just taking medication to reduce how much your illness affects your everyday life? Select Number: 10 Total Score:: 10 Nutrition Survey - Nutrition Survey Instructions Scoring Instructions: Scoring is as follows: Yes = 1 points. No = 0 point. Patient score that is >/=12 is considered to be at potential nutritional risk and could benefit from a referral to a registered dietitian. - Nutrition Survey Initial Have you lost >10 lbs over the past 2 months without trying?: Yes Are you following a special diet at home for diabetes, low fat, or low salt?: No Are you interested in meeting with a dietitian for help understanding your diet?: No Do you eat less than 3 meals a day?: Yes Do you eat fatty meats (borjas, sausage, ribs, etc), fried foods, desserts, large amounts of salad dressings, margarine, butter, or cheese most days?: Yes Do you have food allergies? [Enter types in comment field]: No Do you eat in restaurants more than 3 times a week?: Yes Do you season food with salt, seasoning salt, or garlic salt?: Yes Do you used canned, boxed, frozen meals, or soups, seasoning packets?: Yes Total Score:: 6
--- NOTE | 2020-07-17 08:29 | CR.HP_ITS ---
CR - History & Physical - General Arrival date:: 07/17/20 Arrival time:: 08:29 Date of Referral:: 07/01/20 Date of CR Evaluation:: 07/17/20 Referring Physician: Dr. Harsh Kitchen Primary Diagnosis: Z95.5 PCI with stent - History of Present Cardiac Event Onset Date: Enter Onset Date of cardiac illnesses in Comment field below PTCA or coronary stenting:: Yes - 07-01-2020 Were there any complications?: yes pt coded 3 times and was shipped to [facility]. - Medications Home Medications: Ambulatory Orders Medication Instructions Recorded aspirin 81 mg tablet,delayed 81 mg PO QDAY #90 tab 05/29/20 release Pantoprazole Sodium [Protonix] 40 mg PO DAILY 07/07/20 apixaban 5 mg tablet 5 mg PO BID #180 tab 07/12/20 atorvastatin 80 mg tablet 80 mg PO QHS tab 07/12/20 carvedilol 25 mg tablet 25 mg PO BID #180 tab 07/12/20 lisinopril 10 mg tablet 10 mg PO DAILY #90 tab 07/12/20 nitroglycerin 0.4 mg sublingual 0.4 mg SL Q5-15M PRN tab 07/12/20 tablet spironolactone 25 mg tablet 25 mg PO DAILY #90 tab 07/12/20 ticagrelor 90 mg tablet 90 mg PO BID #180 tab 07/12/20 - Allergies Allergies/Adverse Reactions: Allergies No Known Allergies Allergy (Verified 07/07/20 17:57) - Sleep Disorder Evaluation Hx of Sleep Apnea: Yes Do you snore loudly (louder than talking or can be heard through closed doors)?: No Do you often feel tired/ fatigued/ sleepy during daytime?: No Has anyone observed you stop breathing during sleep?: No History of Hypertension (for STOP score): Yes STOP Results: Negative Advanced Directives - Advanced Directives Power of Solar Site Assessment Specialist: No Living Will: Yes Advance Directives Information Provided: No Advance Directives on File: No DNR Order?:: No Past Medical History - Covid-19 Screening Fever: No Unexplained muscle aches: No Current respiratory symptoms: No Upper respiratory infections symptoms: No Gastro-intestinal symptoms: No Gap-Pavy-Uxmsze symptoms: No Has tested positive for COVID-19 in last 30 days: No Had contact w/person w/symptoms or Covid-19 (+) last 14 days: No Has High Risk Exposures ID'd by Health dept/Inf Control team: No 65 years or older:: Yes Lives in Assisted Living facility:: No Has a chronic lung disease or moderate to severe asthma:: No Has a serious heart condition:: Yes Immunocompromised:: No Severely obese (Body Mass Index of 40 or higher):: No Diabetic:: No Has chronic kidney disease undergoing dialysis:: No - Past Medical Illness Medical History: Past Medical History (Last Reviewed 07/12/20 @ 09:44 by Tere Townsend) ST elevation myocardial infarction (STEMI) of anterior wall (Acute) Onset Date: 07/01/20 I21.09 Atherosclerosis of coronary artery of [place] heart without angina pectoris (Chronic) I25.10 Atrial fibrillation with RVR (Resolved) Onset Date: 04/27/20 I48.91 Coronary artery spasm (Resolved) I20.1 History of non-ST elevation myocardial infarction (NSTEMI) (Resolved) Onset Date: 04/27/20 I25.2 Paroxysmal atrial fibrillation (Chronic) I48.0 Essential hypertension (Chronic) I10 Hyperlipidemia (Chronic) E78.5 RAULITO on CPAP G47.33, Z99.89 Obesity E66.9 STEMI (ST elevation myocardial infarction) (Inactive) Onset Date: 07/01/20 I21.3 - Past Surgical History Surgical History: Past Surgical History (Last Reviewed 07/12/20 @ 09:44 by Tere Townsend) History of coronary artery stent placement (Chronic) Onset Date: 07/01/20 Z95.5 QLV-XIE-Enio LAD w/ 3 x 22 mm resolute Stent; URGENT PCI-BARBARA-Mid LAD W/ 2.5 x 38 mm overlapping w/ 2.5 x 32 mm and overlap with a 2.5 x 16 mm Synergy Stent to the distal LAD. 07/01/2020 History of cardioversion Onset Date: 07/09/17 Z98.890 History of left heart catheterization Onset Date: 07/02/20 Z98.890 04/05/2018, Surgical History: total knee arthroplasty - Right - Family History Summary Family History: Family History (Last Reviewed 07/12/20 @ 09:44 by Tere Townsend) Mother Cancer Father Heart disease Social History - Smoking History Smoking Status: Never smoker Hx Tobacco Use: No Hx Smoking Exposure: No - Alcohol Use Alcohol Usage: No - Substance Abuse Hx Substance Use: No - Occupation Occupation (List type of work in comments):: Retired - Hobbies, Recreation, Social Activities Hobbies: Other - grandkids and cutting firewood Recreational Activities: I am able to engage in all my recreational activities Social Environment - Status Marital Status: - Current Living Arrangements Living Environment:: Spouse - Children How many children do you have?: 3 Do any of your children live nearby?: Yes - Safety Do you feel safe in your surroundings?: Yes - Assistance Do you need any assistance at home?: no Review of Systems - Review of Systems Hints: Right click = Denies ([place]ash). Left click = Reports ([place]) Review of Present Symptoms: Reports: Shortness of Breath with Exertion, Di zziness/Lightheadedness, Heart Arrhythmia/Irregularities - history of A-fib, Appetite - Normal, Sleep - Normal. Denies: Shortness of Breath at Rest, PVD, Operative Discomfort, Angina, Wound Healing, Fatigue, Appetite - Special Diet, Sexual Changes - Pain Is Patient Pain Free?: Yes Pain Location: none Risk Factor Assessment - Chief Complaint Chief Complaint: Z95.5 PCI with stent - Vital Signs Pulse Ox: 96 Blood Pressure: 116/54 - 4 - Pulse Pulse Rate: 81 Pulse Rhythm: Regular - Hypertension How long have you been treated?: 4 years - Diabetes Nutrition Referral for Diabetes: No - Obesity Height: 5 ft 11 in Weight:: 107.048 kg Weight in Pounds: 236.0 lbs Body Mass Index (BMI): 32.9 Nutritional Referral for Obesity: No - Pt declines - Physical Inactivity Physical Inactivity: Recreational activity - Risk Stratification Risk Guidelines: Lowest Risk: Risk Factor for Smoking, Moderate Risk: Risk Factor for Dyslipidemia, Risk Factor for Diabetes, Risk Factor for Obesity, Risk Factor for Hypertension, Risk Factor for Sedentary Lifestyle, Risk Factor for Depression - For Smoking Smoking Risk Guidelines: Smoking Low Risk: None or quit greater than 6 months ago. Smoking Moderate Risk: Smoker or quit 6 months or less ago. Smoking High Risk: Smoker - For Dyslipidemia Dyslipidemia Risk Guidelines: Low Risk: Moderate Risk: High Risk: 15-25% fat 25.1-29% fat >/= 30% fat. <7% sat fat 7-9% sat fat >9% sat fat. <150 mg chol 150-299 mg chol >/= 300 mg chol. LDL <100 LDL 100-129 LDL >/= 130. Chol/HDL ratio <5.0 Chol/HDL ratio 5.0-6.0 Chol/HDL ratio >6.0. Triglycerides <100 Triglycerides 100- 149 Triglycerides >/= 150 - For Diabetes Mellitus Diabetes Risk Guidelines: Diabetes Low Risk: HgA1c <6.5% and/or FBG <120. Diabetes Moderate Risk: HgA1c 6.6-7.9% and/or FBG 120-180. Diabetes High Risk: HgA1c >/= 8% and/or FBG >180 - For Obesity/Overweight Obesity/Overweight Risk Guidelines: Obesity Low Risk: BMI <25.0. Obesity Moderate Risk: BMI 25-29.9. Obesity High Risk: BMI >/= 30.0 - For Hypertension Hypertension Risk Guidelines: Hypertension Low Risk: Systolic <120 and Diastolic <80. Hypertension Moderate Risk: Systolic 120-139 and Diastolic 80-89. Hypertension High Risk: Systolic >/= 140 and Diastolic >/= 90 - For Sedentary Lifestyle Sedentary Lifestyle Risk Guidelines: Sedentary Lifestyle Low Risk: >/= 1,500 kcal/week. Sedentary Lifestyle Moderate Risk: 700-1,499 kcal/week. Sedentary Lifestyle High Risk: < 700 kcal/week - For Depression Depression Risk Guidelines: Depression Low Risk: Not clinically depressed. Depression Moderate Risk: Mildly depressed. Depression High Risk: Clinically depressed - Family History Family History: Family History (Last Reviewed 07/12/20 @ 09:44 by Tere Townsend) Mother Cancer Father Heart disease Motivation - Motivation to Participate On a scale of 1 to 10, how prepared are you to commit to attending program?: 9 What do you see as barriers to successfully being able to complete the program?: none What do you see as the benefits of succesfully completing the program? In other words, what do you hope to get out of participating in the program?: improved health Are there issues you are dealing with that will interfere with completing the program?: no Do you have a spouse or signficant other, family or friends who will help support you to complete the program?: yes
[2020-07-17 09:41] VITALS: BP 116/54; PULSE 81; O2SAT 96; BMI 32.9
[2020-07-17 10:01] VITALS: BP 116/54; BMI 32.9
== END ==
PROVIDERS: PCP Family Medicine; Visit Provider Internal Medicine Cardiovascular Disease
DX: I25.10 Atherosclerotic heart disease of native coronary artery without angina pectoris (principal); Z95.5 Presence of coronary angioplasty implant and graft

== ENCOUNTER 2020-07-31 09:15 | Outpatient (RCR) | payer MEDICARE, OTHER, SELFPAY ==
[2020-07-17 09:41] VITALS: BMI 32.9
[2020-07-17 09:43] VITALS: BMI 32.9
== END 2020-07-31 23:59 ==
LOC: CR 09:15
PROVIDERS: PCP Family Medicine; Referring Provider Internal Medicine Cardiovascular Disease; Visit Provider Internal Medicine Cardiovascular Disease
DX: I25.111 Atherosclerotic heart disease of native coronary artery with angina pectoris with documented spasm (principal); Z95.5 Presence of coronary angioplasty implant and graft; R06.00 Dyspnea, unspecified; I48.91 Unspecified atrial fibrillation; I25.2 Old myocardial infarction; I48.0 Paroxysmal atrial fibrillation; I10 Essential (primary) hypertension; E78.5 Hyperlipidemia, unspecified
CPT/HCPCS: 93798

== ENCOUNTER 2020-08-30 09:15 | Outpatient (RCR) | payer MEDICARE, OTHER, SELFPAY ==
[2020-07-17 09:41] VITALS: BMI 32.9
[2020-07-17 10:01] VITALS: BMI 32.9
--- NOTE | 2020-08-15 10:15 | CR.ITP_ITS ---
Exercise - 30-day Assessment - Visit Date of Eval: 08/15/20 Session #:: 11 - Physician Prescribed Exercise Modalities: Treadmill, Rower, Airdyne, NuStep Frequency: 3x/week for 12 weeks [36 sessions] Intensity: 60-80% of age predicted maximum heart rate reserve Current METSs:: 5.0 INCREASE FROM 3.0 Target Heart Rate:: 100-131 Current RPE:: 11-12 Maximum Excercise HR:: 131 Resting Blood Pressure: 116/60 Maximum Exercise Blood Pressure: 162/70 EKG Type: NSR to sinus tach w/rare PACs and PVCs. Short burst of PAT noted. - Outcomes & Goals Goals:: Verbalizes understanding of THR, RPE & goal METS by session 6, Documents in home exercise log/reports 30 min aerobic 5 day/wk by DC, Demonstrates accurate pulse taking by DC - Intervention & Plan Exercise Program Goals: Instruct on personal THR & RPE, Instruct on MET level & personal MET goal, Show patient to take own pulse /validate performance until accurate, Instruct on home exercise - 30-day Reassessments 30 day Reassessments:: Progressing - Physical Activity Home Exercise Physical Activity - Home Exercise: Safe Exercise, Warm-up, Self-monitoring, Cool-Down, Home Exercise > 30 min Daily, Sitting Time <3 hours/daily - Outcomes & Goals Outcomes/Goals: Demonstrates correct Warm-up/exercise Cool-Down (S3) if = 2.5 METs, Verbalizes symptoms of exercise intolerance by Session 3 (S3), Demonstrate safe equipment use (S3) & follows exercise prescrition (6) - Intervention & Plan Plan/Intervention: Instruct warm-up & cool-down if exercising at > 2 METs, Instruct on symptoms of exercise intolerance & actions to take, Instruct & monitor on saf, Assess intial functional capacity & safety risk - 30-day Reassessments 30 day Reassessments:: Progressing Nutrition - 30-Day Assessment - Program Goals Nutrition Program Goals: LDL <100 optimal. 100 - 129 Near optimal. 130 - 159 Borderline High. 160 - 189 High. Total Cholesterol <200 desirable. 200 - 239 Borderline High. >/= 240 High. HDL < 40 Low >/=60 High. Triglycerides <150 desirable. <199 optimal. VlDL 5 - 40. HgbA1C <7%. BMI <25 Patient has diagnosis of Hyperlipidemia (ICD E78)?: Yes - Visit Date of Assessment:: 08/15/20 Session #:: 11 - Cholesterol/Lipids Determine presence & major risk factors that modify LDL goal: Hypertension or hypertensive medication, Family history of premature CHD in Male < 55 years: female <65 yearsFa, Age men > 45 years; women >/= 55 years Outcomes/Goals: Pt IDs own risk factors & lifestyle modifications by Session 10, Verbalizes symptoms of angina & response by session 3., Pt independently manages Intervention/Plan: Instruct on personal lipid levels & lipid goals/NCEP guidelines, Instruct on cholesterol Referral to dietitian:: Yes - Medical Nutrition Therapy 30-day Reassessments:: Progressing - Diabetes (Other Core Measures) Diabetes Type: Not Applicable - Weight Mgt (Other Care) Height: 5 ft 11 in Weight:: 237 lb 8 oz BMI: 33.1 Diagnosis Overweight/Obesity BMI> 30% ICD-10 E66: Yes Diagnosis High BMI/Morbid Obesity BMI> 35% ICD-10 Z68: No Outcomes/Goals: Pt sets, maintains & shows weight loss goal & trend during rehab Intervention/Plan: Instruct on ideal BMI & set weight loss goal w/patient, Assist pt to ID & incorporate diet changes for weight loss by S9, Refer to Structured Weight Loss program as appropriate, Encourage goal of using 250- 300dcal per session for weight loss 30 day Reassessments:: Progressing - Healthy Eating Habits Will attend diet classes:: Yes Outcomes/Goals:: Consume diet rich in vegs,fruits,whole grain/high fiber,fish,lean meat, Limit sat/trans fats,cholesterol & added salts & sugars Intervention/Plan:: Assess current eating habits 30-day Reassessments:: Progressing Medical- 30-Day Assessment - Visit Date of Eval: 08/15/20 Session #:: 11 - Medication Compliance Preventative Medication(s):: Aspirin, Statin/lipid, Beta cresencio, Eliquis H/O mental health issues: depression, anxiety, or addiction?: No Doesn?t believe in the benefits of treatment?: No Believes medications are unnecessary or harmful?: No Has a concern about medication side effects?: No Expresses concern over the cost of medications?: No Outcomes/Goals: Verbalizes medications,desired effect & common side effects @ DC, Pt self-reports following medication regimen, Keeps card in wallet w/medications listed by DC Interventions/plans: Instruct on medication effects & side effects, Review medication list w/patient every two weeks, Instruct importance of taking meds as ordered & assist problem solving 30-day Reassessments:: Progressing - Tobacco Use Tobacco Use: Non-smoker - Hypertension Hypertension Diagnosis:: Hypertension ICD-10 I10 Resting Blood Pressure:: 116/60 - controlled with medication [place] [employer] Hypertension Guidelines: [place] [employer] Hypertension Guidelines. Normal BP Less than 120/80. Elevated BP 120/80. Hypertension Stage 1: BP 130-139/80-89. Hypertesnion Stage 2: BP 140 or higher/90 or higher. Hypertension Crisis: BP higher than 180/120 Peak Exercise Blood Pressure:: 162/70 Outcomes/Goals: Able to verbalize/achieve optimal blood pressure <130/80, Incorporates diet changes & exercise for blood pressure control by DC Interventions/plan: Instruct on optimal blood pressure, hypertension & medications, Instruct on effects of sodium, alcohol, stress, exercise &hypertension 30 day Reassessments:: Progressing - Tobacco Cessation Referral Smoking Cessation Referral:: No Individual Education/Counseling:: No Education Schedule Given:: Yes Psychosocial - 30-Day Assess - VIsit Date of Eval: 08/15/20 Session #:: 11 Not Applicable: Yes History of previous Mental disease:: No - Target Goals Target Goals: Assess presence or absence of depression. Using a valid screening tool, maximizes coping skills. Positive support system - Psychosocial Test Tool Used:: PHQ-9 Questionnaire phq-9 Severity: Severity. 1-4 Minimal Depression. 5-9 Mild Depression. 10-14 Moderate Depression. 15-19 Moderately Sever Depression. 20-27 Severe Depression. Rule: - Referral to Behavioral Health PS - Interventions: Yes Attend Stress Management Classes, No Referral to Behavioral Health if PHQ-9 score >9:, No Referral to [facility], No Referral to Physician if PHQ-9 if score is 5-9: - Outcomes/Goals: See list Psychosocial Outcomes/Goals:: ID's personal stressors & 2 strategies to manage stress by discharge - Intervention/Plan: See List Interventions/Plan:: Assess stressors,coping strategies & signs of derpression on admission, Instruct/assist pt to develop coping & personal stress Mgt strategies, Instruct patient to recognize signs & symptoms of depression, Instruct patient to recog - 30-day Reassessments: 30 day Reassessments:: Not Met Patient Health Questionnaire 30-Day Re-eval Assessment 1. Little interest or pleasure in doing things: Not at all 2. Feeling down, depressed, or hopeless: Not at all 3. Trouble falling or staying asleep, or sleeping too much: Not at all 4. Feeling tired or having little energy: Not at all 5. Poor appetite or overeating: Not at all 6. Feeling bad about yourself -- or that you are a failure or have let yourself or your family down: Not at all 7. Trouble concentrating on things, such as reading the newspaper or watching television: Not at all 8. Moving or speaking so slowly that other people could have noticed. Or the opposite - being so fidgety or restless that you have been moving around a lot more than usual: Not at all 9. Thoughts that you would be better off , or of hurting yourself in some way: Not at all Total Score: 0 Self-Efficacy 30-Day Re-eval Assessment We would like to know how confident you are in doing certain activities. Please select your confidence level for:: Select your confidence level for the ovidio trevizo using the scale 1-10 where 1 is not at all confident and 10 is totally confident. Your score is the average of all 6 responses. Fatigue: How confident are you that you can keep the fatigue caused by your disease from interfering with the things you want to do? Select Number: 10 Physical Discomfort or Pain: How confident are you that you can keep the physical discomfort or pain of your disease from interfering with the things you want to do? Select Number: 10 Emotional Distress: How confident are you that you can keep the emotional distress caused by your disease from interfering with the things you want to do? Select Number: 10 Other Symptoms or Health Problems: How confident are you that you can keep other symptoms or health problems from interfering with the things you want to do? Select Number: 10 Different Tasks and Activities: How confident are you that you can do the different tasks and activities needed to manage your health condition so as to reduce your need to see a doctor? Select Number: 10 Medication: How confident are you that you can do things other than just taking medication to reduce how much your illness affects your everyday life? Select Number: 10 Total Score:: 10
[2020-08-15 10:22] VITALS: BP 116/60; BP 162/70; BMI 33.1
== END 2020-08-30 23:59 ==
LOC: CR 09:15
PROVIDERS: PCP Family Medicine; Referring Provider Internal Medicine Cardiovascular Disease; Visit Provider Internal Medicine Cardiovascular Disease
DX: I25.111 Atherosclerotic heart disease of native coronary artery with angina pectoris with documented spasm (principal); I48.91 Unspecified atrial fibrillation; I48.0 Paroxysmal atrial fibrillation; I25.2 Old myocardial infarction; I10 Essential (primary) hypertension; E78.5 Hyperlipidemia, unspecified; R06.00 Dyspnea, unspecified; Z95.5 Presence of coronary angioplasty implant and graft
CPT/HCPCS: 93798

== ENCOUNTER 2020-09-27 09:15 | Outpatient (RCR) | payer MEDICARE, OTHER, SELFPAY ==
[2020-07-17 09:41] VITALS: BMI 32.9
[2020-08-15 10:22] VITALS: BMI 33.1
[2020-08-31 00:49] VITALS: BP 116/60; BP 162/70
--- NOTE | 2020-09-16 07:07 | PCM.CR.ITP ---
Diagnosis Exercise - 60-day Assessment - Visit Date of Eval: 09/16/20 Session #:: 24 - Physician Prescribed Exercise Modalities: Treadmill, Rower, Airdyne, NuStep Frequency: 3x/week for 12 weeks [36 sessions] Intensity: 60-80% of age predicted maximum heart rate reserve Current METSs:: 7.1 Target Heart Rate:: 100-131 Current RPE:: 13-14 Maximum Excercise HR:: 124 Resting Blood Pressure: 130/62 Maximum Exercise Blood Pressure: 182/80 EKG Type: NSR to sinus tach with occas. PACs and PVCs noted - Outcomes & Goals Goals:: Verbalizes understanding of THR, RPE & goal METS by session 6, Documents in home exercise log/reports 30 min aerobic 5 day/wk by DC, Demonstrates accurate pulse taking by DC - Intervention & Plan Exercise Program Goals: Instruct on personal THR & RPE, Instruct on MET level & personal MET goal, Show patient to take own pulse /validate performance until accurate, Instruct on home exercise - 30-day Reassessments 30 day Reassessments:: Met - Physical Activity Home Exercise Physical Activity - Home Exercise: Safe Exercise, Warm-up, Self-monitoring, Cool-Down, Home Exercise > 30 min Daily, Sitting Time <3 hours/daily - Outcomes & Goals Outcomes/Goals: Demonstrates correct Warm-up/exercise Cool-Down (S3) if = 2.5 METs, Verbalizes symptoms of exercise intolerance by Session 3 (S3), Demonstrate safe equipment use (S3) & follows exercise prescrition (6) - Intervention & Plan Plan/Intervention: Instruct warm-up & cool-down if exercising at > 2 METs, Instruct on symptoms of exercise intolerance & actions to take, Instruct & monitor on saf, Assess intial functional capacity & safety risk - 30-day Reassessments 30 day Reassessments:: Met Nutrition - Initial Assessment Nutrition - 30-Day Assessment Nutrition - 60-Day Assessment - Program Goals Nutrition Program Goals: LDL <100 optimal. 100 - 129 Near optimal. 130 - 159 Borderline High. 160 - 189 High. Total Cholesterol <200 desirable. 200 - 239 Borderline High. >/= 240 High. HDL < 40 Low >/=60 High. Triglycerides <150 desirable. <199 optimal. VlDL 5 - 40. HgbA1C <7%. BMI <25 Patient has diagnosis of Hyperlipidemia (ICD E78)?: Yes - Visit Date of Assessment:: 09/16/20 - no updated labs drawn - Cholesterol/Lipids Determine presence & major risk factors that modify LDL goal: Hypertension or hypertensive medication, Family history of premature CHD in Male < 55 years: female <65 yearsFa, Age men > 45 years; women >/= 55 years Outcomes/Goals: Pt IDs own risk factors & lifestyle modifications by Session 10, Verbalizes symptoms of angina & response by session 3., Pt independently manages Intervention/Plan: Instruct on personal lipid levels & lipid goals/NCEP guidelines, Instruct on cholesterol Referral to dietitian:: No 30-day Reassessments:: Progressing - Diabetes (Other Core Measures) Diabetes Type: Not Applicable - Weight Mgt (Other Care) Not Applicable: No Height: 5 ft 11 in Weight:: 236 lb 8 oz BMI: 33.0 Diagnosis Overweight/Obesity BMI> 30% ICD-10 E66: Yes Diagnosis High BMI/Morbid Obesity BMI> 35% ICD-10 Z68: Yes Outcomes/Goals: Pt sets, maintains & shows weight loss goal & trend during rehab Intervention/Plan: Instruct on ideal BMI & set weight loss goal w/patient, Assist pt to ID & incorporate diet changes for weight loss by S9, Encourage goal of using 250-300dcal per session for weight loss 30 day Reassessments:: Progressing - Healthy Eating Habits Will attend diet classes:: Yes Outcomes/Goals:: Consume diet rich in vegs,fruits,whole grain/high fiber,fish,lean meat, Limit sat/trans fats,cholesterol & added salts & sugars Intervention/Plan:: Assess current eating habits 30-day Reassessments:: Progressing Nutrition - 90-Day Assessment Nutrition - Final Assessment Medical - Initial Assessment Medical- 30-Day Assessment Medical- 60-Day Assessment - Visit Date of Eval: 09/16/20 Session #:: 24 - Medication Compliance Preventative Medication(s):: Aspirin, Clopidogrel/P2Y12 inhibit, Statin/lipid, Beta cresencio H/O mental health issues: depression, anxiety, or addiction?: No Doesn?t believe in the benefits of treatment?: No Believes medications are unnecessary or harmful?: No Has a concern about medication side effects?: No Expresses concern over the cost of medications?: No Outcomes/Goals: Verbalizes medications,desired effect & common side effects @ DC, Pt self-reports following medication regimen, Keeps card in wallet w/medications listed by DC Interventions/plans: Instruct on medication effects & side effects, Review medication list w/patient every two weeks, Instruct importance of taking meds as ordered & assist problem solving 30-day Reassessments:: Progressing - Tobacco Use Tobacco Use: Non-smoker - Hypertension Hypertension Diagnosis:: Hypertension ICD-10 I10 Resting Blood Pressure:: 130/62 [place] [employer] Hypertension Guidelines: [place] [employer] Hypertension Guidelines. Normal BP Less than 120/80. Elevated BP 120/80. Hypertension Stage 1: BP 130-139/80-89. Hypertesnion Stage 2: BP 140 or higher/90 or higher. Hypertension Crisis: BP higher than 180/120 Peak Exercise Blood Pressure:: 182/80 Outcomes/Goals: Able to verbalize/achieve optimal blood pressure <130/80, Incorporates diet changes & exercise for blood pressure control by DC Interventions/plan: Instruct on optimal blood pressure, hypertension & medications, Instruct on effects of sodium, alcohol, stress, exercise &hypertension 30 day Reassessments:: Progressing - Tobacco Cessation Referral Smoking Cessation Referral:: No Individual Education/Counseling:: No Education Schedule Given:: Yes Medical- 90-Day Assessment Medical - Final Assessment Psychosocial - Initial Assess Psychosocial - 30-Day Assess Psychosocial - 60-Day Assess - VIsit Date of Eval: 09/16/20 Session #:: 24 Not Applicable: Yes History of previous Mental disease:: No - Psychosocial Test Tool Used:: PHQ-9 Questionnaire phq-9 Severity: Severity. 1-4 Minimal Depression. 5-9 Mild Depression. 10-14 Moderate Depression. 15-19 Moderately Sever Depression. 20-27 Severe Depression. Rule: - Referral to Behavioral Health PS - Interventions: Yes Attend Stress Management Classes, No Referral to Behavioral Health if PHQ-9 score >9:, No Referral to [facility], No Referral to Physician if PHQ-9 if score is 5-9: - Outcomes/Goals: See list Psychosocial Outcomes/Goals:: ID's personal stressors & 2 strategies to manage stress by discharge - Intervention/Plan: See List Interventions/Plan:: Assess stressors,coping strategies & signs of derpression on admission, Instruct/assist pt to develop coping & personal stress Mgt strategies, Instruct patient to recognize signs & symptoms of depression, Instruct patient to recog - 30-day Reassessments: 30 day Reassessments:: Met Psychosocial - 90-Day Assess Psychosocial - Final Assessmen Patient Health Questionnaire 60-Day Re-eval Assessment 1. Little interest or pleasure in doing things: Not at all 2. Feeling down, depressed, or hopeless: Not at all 3. Trouble falling or staying asleep, or sleeping too much: Not at all 4. Feeling tired or having little energy: Not at all 5. Poor appetite or overeating: Not at all 6. Feeling bad about yourself -- or that you are a failure or have let yourself or your family down: Not at all 7. Trouble concentrating on things, such as reading the newspaper or watching television: Not at all 8. Moving or speaking so slowly that other people could have noticed. Or the opposite - being so fidgety or restless that you have been moving around a lot more than usual: Not at all 9. Thoughts that you would be better off , or of hurting yourself in some way: Not at all How difficult have these problems made it for you to do your work, take care of things at home, or get along with other people?: Not difficult at all Total Score: 0 Self-Efficacy 60-Day Re-eval Assessment We would like to know how confident you are in doing certain activities. Please select your confidence level for:: Select your confidence level for the following using the scale 1-10 where 1 is not at all confident and 10 is totally confident. Your score is the average of all 6 responses. Fatigue: How confident are you that you can keep the fatigue caused by your disease from interfering with the things you want to do? Select Number: 10 Physical Discomfort or Pain: How confident are you that you can keep the physical discomfort or pain of your disease from interfering with the things you want to do? Select Number: 10 Emotional Distress: How confident are you that you can keep the emotional distress caused by your disease from interfering with the things you want to do? Select Number: 10 Other Symptoms or Health Problems: How confident are you that you can keep other symptoms or health problems from interfering with the things you want to do? Select Number: 10 Different Tasks and Activities: How confident are you that you can do the different tasks and activities needed to manage your health condition so as to reduce your need to see a doctor? Select Number: 10 Medication: How confident are you that you can do things other than just taking medication to reduce how much your illness affects your everyday life? Select Number: 10 Total Score:: 10 Nutrition Survey
[2020-09-16 07:14] VITALS: BP 130/62; BP 182/80; BMI 33.0
== END 2020-09-30 23:59 ==
LOC: CR 09:15
PROVIDERS: PCP Family Medicine; Referring Provider Internal Medicine Cardiovascular Disease; Visit Provider Internal Medicine Cardiovascular Disease
DX: I25.111 Atherosclerotic heart disease of native coronary artery with angina pectoris with documented spasm (principal); I48.91 Unspecified atrial fibrillation; I48.0 Paroxysmal atrial fibrillation; I25.2 Old myocardial infarction; I10 Essential (primary) hypertension; E78.5 Hyperlipidemia, unspecified; R06.00 Dyspnea, unspecified; Z95.5 Presence of coronary angioplasty implant and graft
CPT/HCPCS: 93798

== ENCOUNTER 2020-10-14 09:15 | Outpatient (RCR) | payer MEDICARE, OTHER, SELFPAY ==
[2020-07-17 09:41] VITALS: BMI 32.9
[2020-09-16 07:14] VITALS: BMI 33.0
[2020-10-01 00:32] VITALS: BP 130/62; BP 182/80
== END 2020-10-30 23:59 ==
LOC: CR 09:15
PROVIDERS: PCP Family Medicine; Referring Provider Internal Medicine Cardiovascular Disease; Visit Provider Internal Medicine Cardiovascular Disease
DX: I25.111 Atherosclerotic heart disease of native coronary artery with angina pectoris with documented spasm (principal); I48.91 Unspecified atrial fibrillation; I48.0 Paroxysmal atrial fibrillation; I25.2 Old myocardial infarction; I10 Essential (primary) hypertension; E78.5 Hyperlipidemia, unspecified; R06.00 Dyspnea, unspecified; Z95.5 Presence of coronary angioplasty implant and graft
CPT/HCPCS: 93798

== ENCOUNTER → 2020-10-15 08:47 | Outpatient (CLI) | payer MEDICARE, OTHER, SELFPAY ==
[2020-07-12 09:34] VITALS: BMI 31.6
[2020-07-17 09:41] VITALS: BMI 32.9
[2020-09-16 07:14] VITALS: BMI 33.0
--- NOTE | 2020-10-15 08:50 | ECHOCS_ITS ---
Reason For Study: CARDIOMYOPATHY Procedure This was a 2D Doppler, Color Flow transthoracic echocardiogram. Contrast injection was performed. Exam performed in department. Left Ventricle Normal LV size. Left ventricular systolic function is normal. The estimated ejection fraction is 55 %. Stage 2 diastolic dysfunction. [place] : Hypokinetic. Right Ventricle Normal RV size. Normal systolic function. Atria Normal left atrium. Normal right atrium. Mitral Valve Normal mitral valve. Tricuspid Valve Normal tricuspid valve. Mild tricuspid valve insufficiency. Aortic Valve Normal aortic valve. Pulmonic Valve Normal pulmonic valve. Great Vessels Normal aortic root. The pulmonary artery is normal size. Normal inferior vena cava. Pericardium/Pleural No pericardial effusion. Medication 22 gauge I.V. with prn adaptor inserted into right arm. Diluted definity 2.0ml given slow IV push to enhance endocardial definition. MMode/2D Measurements & Calculations LVIDd: 4.9 cm IVSd: 1.3 cm Ao root diam: 3.8 cm LVIDs: 3.4 cm LVPWd: 1.1 cm RVDd: 4.2 cm FS: 30.3 % LAV(MOD-bp): 68.1 ml LA A4 area: 19.5 cm2 LA dimension(2D): 3.7 cm LAV(MOD-bp) Indexed: 30.4 ml/m2 LAV(MOD-sp2): 81.4 ml LAV(MOD-sp4): 54.8 ml RA A4 area: 18.4 cm2 Doppler Measurements & Calculations MV E max nakul: 55.7 cm/sec Lat Peak E' Nakul: 8.3 cm/sec Med Peak E' Nakul: 5.0 cm/sec MV A max nakul: 50.0 cm/sec E/E' lat: 6.7 E/E' med: 11.2 MV E/A: 1.1 Ao V2 max: 119.5 cm/sec LV V1 max: 97.1 cm/sec PA V2 max: 81.4 cm/sec Ao max P.7 mmHg LV V1 max P.8 mmHg TR max nakul: 203.6 cm/sec TR max P.6 mmHg ECHO/Echo Complete W/ Contrast Interpretation Summary Normal LV size. Left ventricular systolic function is normal. The estimated ejection fraction is 55 %. [place] : Hypokinetic. Stage 2 diastolic dysfunction. Contrast injection was performed. Ordering Physician: Ana Carr Referring Physician: River Cho Performed By: Bri Ponce RDCS, RVT
== END ==
PROVIDERS: PCP Family Medicine; Referring Provider Physician Assistant Medical; Visit Provider Physician Assistant Medical
DX: I46.9 Cardiac arrest, cause unspecified (principal); I42.9 Cardiomyopathy, unspecified
CPT/HCPCS: 93306; Q9957; A4216; C8929; J3490

== ENCOUNTER 2021-01-23 09:46 | Day surgery (SDC) | payer MEDICARE, OTHER, SELFPAY ==
[2020-09-16 07:14] VITALS: BMI 33.0
[2021-01-21 16:19] LABS: Absolute Neutrophil Count 4.5 X10^3/uL (2.0-7.7); Basophil# 0.06 X10^3/uL; Basophil% 0.8 % (0-1); Eosinophil# 0.17 X10^3/uL; Eosinophils% 2.4 % (0-5); Hematocrit 34.9 % (40-54); Hemoglobin 12.1 g/dL (13.0-16.5); Lymphocyte % 24.9 % (19-41); Mean Corp Hgb Conc 34.7 g/dL (32-36); Mean Corpuscular Hgb 33.1 pg (27.0-32.0); Mean Corpuscular Volume 95.4 fL (80-94); Mean Platelet Vol. 9.8 fl (6.2-12.0); Monocyte# 0.67 X10^3/uL; Monocyte% 9.3 % (0-10); NRBC Flagged by Analyzer 0 % (0-5); Neutrophil % 62.3 % (47-70); Platelet Count 272 K/mm3 (150-450); RBC Distribution Width CV 12.7 % (11.6-14.6); RBC Distribution Width SD 44.3 fl (35.1-43.9); Red Blood Count 3.66 M/mm3 (4.6-6.2); White Blood Count 7.2 K/mm3 (4.4-11.0)
[2021-01-21 16:57] LABS: Anion Gap 5 (5-15); BUN 29 mg/dL (7-18); BUN/Creat Ratio 26.9 RATIO (10-20); Calcium,Total 8.7 mg/dL (8.5-10.1); Chloride 110 mmol/L (98-107); Creatinine, Serum 1.08 mg/dL (0.70-1.30); EST Glomerular Filtration Rate 73 mL/min (>60); Est Glom Filt Rate - Afr Amer 88 mL/min (>60); Glucose 109 mg/dL (74-106); Magnesium 1.8 mg/dL (1.6-2.6); Potassium 4.3 mmol/L (3.5-5.1); Sodium Level 139 mmol/L (136-145); Thyroid Stim Hormone (TSH) 1.64 uIU/mL (0.358-3.74)
[2021-01-22 07:47] VITALS: BMI 32.5
--- NOTE | 2021-01-23 12:26 | PCM.OP.BLANK ---
Problems Associated Problem List Diagnoses (1) Persistent atrial fibrillation: Operative Report Date of Procedure: 01/23/21 DC cardio version. Chronic persistent symptomatic atrial fibrillation. The patient was brought to the cardiac catheterization lab in the postabsorptive nonsedated state. The patient was seen by Dr. Gar of the critical care division. Informed consent was obtained. Anterior-posterior pads were applied. The patient was then administered 60 mg of intravenous propofol and then 200 J of synchronized biphasic DC cardioversion energy were applied with prompt reversal to sinus rhythm. Patient tolerated the procedure well. Postoperative EKG demonstrated normal sinus rhythm. Conclusion: Successful DC cardioversion from atrial fibrillation to sinus rhythm. We will follow up per office protocol.
--- NOTE | 2021-01-23 12:34 | PCM.OP.PRO ---
Procedure Report Date of Procedure: 01/23/21 CONSCIOUS SEDATION REPORT DATE OF SERVICE: January 23, 2021 BRIEF HISTORY OF PRESENT ILLNESS: The patient is a 65-year-old male who presented to [facility] for an elective outpatient cardioversion due to underlying atrial fibrillation. The patient is currently anticoagulated on Eliquis. His last surface echocardiogram revealed an ejection fraction of approximately 55%. The patient denies any prior anesthetic complication. He does have a known history of obstructive sleep apnea, for which he utilizes nocturnal CPAP therapy. PHYSICAL EXAMINATION: VITAL SIGNS: Reviewed and were acceptable. GENERAL: The patient is an obese male, in no apparent distress, speaking in full sentences. HEENT: Normocephalic, atraumatic. Mucous membranes are moist and pink. Good mouth opening noted. Trachea is midline. Good neck mobility. CHEST: S1, S2 irregularly irregular. No murmurs, rubs or gallops were noted. LUNGS: Clear to auscultation bilaterally without appreciable wheezes, rales or rhonchi. ABDOMEN: Soft, nontender, nondistended. Positive bowel sounds. EXTREMITIES: There is no clubbing, cyanosis or edema. ASA Class: II DESCRIPTION OF PROCEDURE: After confirmation of informed consent, the patient's anesthesia plan was reviewed in detail. Propofol was chosen. Risks and benefits were reviewed and the patient agreed to proceed. At 1216, the patient was given 60 mg of propofol. The patient achieved an appropriate level of sedation and was given a 200 joule synchronized cardioversion by Dr. Kitchen at the bedside. This was successful in achieving normal sinus rhythm. The patient was monitored until 1227, at which time he reached his baseline mental status and function. The patient tolerated the procedure well. COMPLICATIONS: None ESTIMATED BLOOD LOSS: None RECOMMENDATIONS: Okay to recover in usual fashion. Procedures Pulmonary CF Procedures Pulmonary: 23378 Con Sedation
== END 2021-01-23 13:31 | disposition home or self-care (01) ==
LOC: CLSP 09:47
PROVIDERS: Physician Assistant Medical; PCP Family Medicine; Referring Provider Internal Medicine Cardiovascular Disease; Visit Provider Internal Medicine Cardiovascular Disease
DX: I48.19 Other persistent atrial fibrillation (principal); I48.0 Paroxysmal atrial fibrillation; I25.10 Atherosclerotic heart disease of native coronary artery without angina pectoris; I10 Essential (primary) hypertension; E78.5 Hyperlipidemia, unspecified; G47.33 Obstructive sleep apnea (adult) (pediatric); E66.9 Obesity, unspecified; Z79.01 Long term (current) use of anticoagulants; Z79.02 Long term (current) use of antithrombotics/antiplatelets; Z79.899 Other long term (current) drug therapy; I25.2 Old myocardial infarction; Z86.16 Personal history of COVID-19
CPT/HCPCS: 36415; 80048; 83735; 84443; 85025; 92960; 93005; J7040

== ENCOUNTER → 2021-10-29 | Outpatient (CLI) | payer MEDICARE, OTHER, SELFPAY ==
[2020-09-16 07:14] VITALS: BMI 33.0
--- NOTE | 2021-10-29 11:17 | RAD_ITS ---
STUDY: XR Chest 2 Views 10/29/2021 11:17 AM REASON FOR EXAM: Male, 65 years old. CHEST PAIN Shortness of breath COMPARISON: None TECHNIQUE: XR Chest 2 Views FINDINGS: There is no demonstrated pleural abnormality. Normal heart size. Normal mediastinum. Normal lisa. Prominent appearing increased interstitial lung markings. Normal visualized pulmonary arteries. There is atherosclerotic calcification of the aortic arch with tortuosity. There are diffuse degenerative changes of the visualized thoracic spine. There is degenerative osteoarthritis of the bilateral shoulders. There is no demonstrated abnormality of the visualized soft tissue structures of the upper abdomen. RAD/Chest PA and Lateral IMPRESSION: There are no acute findings. Electronically Signed: Kameron Sharma MD at 15:26 EDT ,
[2021-10-29 11:43] LABS: Hematocrit 39.2 % (40-54); Hemoglobin 13.5 g/dL (13.0-16.5); Mean Corp Hgb Conc 34.4 g/dL (32-36); Mean Corpuscular Hgb 32.5 pg (27.0-32.0); Mean Corpuscular Volume 94.2 fL (80-94); Mean Platelet Vol. 10.2 fl (6.2-12.0); Platelet Count 191 K/mm3 (150-450); RBC Distribution Width CV 13.1 % (11.6-14.6); RBC Distribution Width SD 45.1 fl (35.1-43.9); Red Blood Count 4.16 M/mm3 (4.6-6.2); White Blood Count 6.7 K/mm3 (4.4-11.0)
[2021-10-29 12:12] LABS: Anion Gap 6 (5-15); BNP,B-Type NATRIURETIC PEPTIDE 616.2 pg/mL (0-100); BUN 19 mg/dL (7-18); BUN/Creat Ratio 16.8 RATIO (10-20); Calcium,Total 8.9 mg/dL (8.5-10.1); Chloride 111 mmol/L (98-107); Creatinine, Serum 1.13 mg/dL (0.70-1.30); EST Glomerular Filtration Rate 69 mL/min (>60); Est Glom Filt Rate - Afr Amer 83 mL/min (>60); Glucose 91 mg/dL (74-106); Potassium 4.3 mmol/L (3.5-5.1); Sodium Level 142 mmol/L (136-145); Thyroid Stim Hormone (TSH) 1.95 uIU/mL (0.358-3.74)
== END | disposition home or self-care (01) ==
PROVIDERS: PCP Family Medicine; Referring Provider Physician Assistant Medical; Visit Provider Physician Assistant Medical
DX: R07.89 Other chest pain (principal); I46.9 Cardiac arrest, cause unspecified; I49.01 Ventricular fibrillation; I48.0 Paroxysmal atrial fibrillation; R06.02 Shortness of breath; I25.10 Atherosclerotic heart disease of native coronary artery without angina pectoris; I25.2 Old myocardial infarction; Z86.79 Personal history of other diseases of the circulatory system; Z95.5 Presence of coronary angioplasty implant and graft
CPT/HCPCS: 36415; 71046; 80048; 83735; 83880; 84443; 85027

== ENCOUNTER → 2021-11-06 | Outpatient (CLI) | payer MEDICARE, OTHER, SELFPAY ==
[2021-10-29 10:17] VITALS: BMI 33.0
[2021-11-06 12:32] LABS: Anion Gap 6 (5-15); BUN 32 mg/dL (7-18); Calcium,Total 9.2 mg/dL (8.5-10.1); Chloride 107 mmol/L (98-107); Creatinine, Serum 1.23 mg/dL (0.70-1.30); EST Glomerular Filtration Rate 62 mL/min (>60); Est Glom Filt Rate - Afr Amer 75 mL/min (>60); Glucose 100 mg/dL (74-106); Potassium 3.9 mmol/L (3.5-5.1); Sodium Level 140 mmol/L (136-145)
== END | disposition home or self-care (01) ==
PROVIDERS: PCP Family Medicine; Visit Provider Physician Assistant Medical
DX: R06.02 Shortness of breath (principal)
CPT/HCPCS: 36415; 80048

== ENCOUNTER → 2021-11-13 | Outpatient (CLI) | payer MEDICARE, OTHER, SELFPAY ==
[2021-10-29 10:17] VITALS: BMI 33.0
[2021-11-13 17:42] LABS: AST(SGOT) 27 U/L (15-37); Alanine Aminotransfer ALT/SGPT 44 U/L (16-61); Albumin, Serum 3.7 g/dL (3.2-5.0); Alkaline Phosphatase 83 U/L (45-117); Bilirubin, Direct 0.26 mg/dL (0.00-0.30); Cholesterol 93 mg/dL (200); Globulin 3.3 g/dL (2.2-4.2); High Density Lipoprotein 38 mg/dL; Triglycerides 92 mg/dL; Very Low Density Lipoprotein 18 mg/dL (5-40)
== END | disposition home or self-care (01) ==
LOC: LAB 15:46
PROVIDERS: PCP Family Medicine; Referring Provider Internal Medicine Cardiovascular Disease; Visit Provider Internal Medicine Cardiovascular Disease
DX: I25.10 Atherosclerotic heart disease of native coronary artery without angina pectoris (principal); E78.5 Hyperlipidemia, unspecified
CPT/HCPCS: 36415; 80061; 80076

== ENCOUNTER 2022-04-21 01:27 | Observation (INO) | payer MEDICARE, OTHER, SELFPAY ==
[2021-10-29 10:17] VITALS: BMI 33.0
[2022-04-21] VITALS (12 sets, daily range): BP systolic 102–124; BP diastolic 52–76; PULSE 96–166; RESP 11–21; TEMP 36.6–37; O2SAT 96–99; BMI 33.0
--- NOTE | 2022-04-21 01:34 | EKG12_ITS ---
Test Reason : CP Blood Pressure : / mmHG Vent. Rate : 130 BPM Atrial Rate : 000 BPM P-R Int : 000 ms QRS Dur : 086 ms QT Int : 302 ms P-R-T Axes : 000 044 -85 degrees QTc Int : 444 ms Atrial fibrillation with rapid ventricular response Nonspecific ST and T wave abnormality Abnormal ECG Confirmed by SARITA MACARIO, JANA ([id number]), assignment editor DAVID SANCHEZ ([id number]) on 04/22/2022 10:45:59 AM Referred By: SURAJ Confirmed By:JANA STEIN MD
[2022-04-21 01:41] LABS: Absolute Lymphocyte Count 2.51 X10^3/uL (0.83-4.51); Absolute Neutrophil Count 6.6 X10^3/uL (2.0-7.7); Basophil# 0.07 X10^3/uL; Basophil% 0.7 % (0-1); Eosinophil# 0.31 X10^3/uL; Eosinophils% 2.9 % (0-5); Hematocrit 39.3 % (40-54); Hemoglobin 13.4 g/dL (13.0-16.5); Lymphocyte # 2.51 X10^3/ul (0.83-4.51); Lymphocyte % 23.9 % (19-41); Mean Corp Hgb Conc 34.1 g/dL (32-36); Mean Corpuscular Hgb 31.9 pg (27.0-32.0); Mean Corpuscular Volume 93.6 fL (80-94); Mean Platelet Vol. 9.5 fl (6.2-12.0); Monocyte# 1.03 X10^3/uL; Monocyte% 9.8 % (0-10); NRBC Flagged by Analyzer 0 % (0-5); Neutrophil # 6.56 X10^3/uL (2.7-7.7); Neutrophil % 62.3 % (47-70); Platelet Count 233 K/mm3 (150-450); RBC Distribution Width CV 12.9 % (11.6-14.6); RBC Distribution Width SD 43.9 fl (35.1-43.9); White Blood Count 10.5 K/mm3 (4.4-11.0)
[2022-04-21] MEDS: Aspirin 81 MG TAB.CHEW 324 MG PO (01:41)
--- NOTE | 2022-04-21 01:50 | RAD_ITS ---
STUDY: X-RAY CHEST REASON FOR EXAM: Male, 66 years old. chest pain TECHNIQUE: Single AP portable view of the chest. COMPARISON: None. FINDINGS: The lungs are clear and expanded. There is no demonstrated pleural abnormality. Normal size heart. Normal mediastinum and lisa. Normal visualized pulmonary arteries. Normal visualized aortic arch and descending thoracic aorta. Normal visualized thoracic spine. There is degenerative osteoarthritis of the bilateral shoulders. There is no demonstrated abnormality of the visualized soft tissue structures of the upper abdomen. RAD/Chest 1 View (Portable) IMPRESSION: Degenerative changes, as described above. No demonstrated acute cardiopulmonary process. Electronically Signed: Lukasz Tian MD at 2:13 EST ,
--- NOTE | 2022-04-21 01:57 | ED.VIS.CHEST ---
HPI History of Present Illness Chief Complaint: Chest Pain Narrative Narrative: 66-year-old male with history of CAD, PAF, hypertension, hyperlipidemia, [place], V. fib arrest presenting with chest pain. He describes it as a pressure. This started about an hour ago. He does feel palpitations and a little bit short of breath. Patient states the pain radiates to his left arm and shoulder. He is not lightheaded or dizzy. Patient states prior to this he was otherwise well. Patient states he typically takes 25 mg of carvedilol twice daily for rate control. 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 [facility] Medical History Atherosclerosis of coronary artery of [place] heart without angina pectoris Atrial fibrillation with RVR (04/27/20) Cardiac arrest with ventricular fibrillation Coronary artery spasm Essential hypertension History of non-ST elevation myocardial infarction (NSTEMI) (04/27/20) History of ST elevation myocardial infarction (STEMI) (07/02/20) History of torsades de pointes (07/01/20) Hyperlipidemia Obesity RAULITO on CPAP Paroxysmal atrial fibrillation STEMI (ST elevation myocardial infarction) (07/01/20) Home Medications nitroglycerin 0.4 mg sublingual tablet 0.4 mg sublingual Q5-15M PRN Chest Pain 07/12/20 [History Last Taken Unknown] apixaban 5 mg tablet 5 mg PO BID #180 tabs 08/25/21 [Rx Last Taken Unknown] atorvastatin 80 mg tablet 80 mg PO QHS #90 tabs 08/25/21 [Rx Last Taken Unknown] carvedilol 25 mg tablet 25 mg PO BID #180 tabs 08/25/21 [Rx Last Taken Unknown] ticagrelor 90 mg tablet 90 mg PO BID #180 tabs 08/25/21 [Rx Last Taken Unknown] losartan 25 mg tablet See Rx Instructions .Route .COMPLEX #90 tabs 03/06/22 [Rx Last Taken Unknown] Allergy/AdvReac Type Severity Reaction Status Date / Time lisinopril AdvReac Intermediate cough, Verified 04/21/22 01:29 nasal drainage Family History Mother Cancer Father Heart disease Surgical History History of cardioversion (01/23/21) History of coronary artery stent placement (07/01/20) History of left heart catheterization (07/01/20) History of right and left heart catheterization (07/02/20) Social History Smoking Status: Never smoker alcohol intake: current alcohol intake frequency: holidays/special occasions only substance use type: does not use caffeine: Yes Type: coffee Number of servings: 1 ROS ROS ED Constitutional Constitutional ED: Denies chills, fever(s) or sweats Eyes Eyes: Denies blurry vision or change in vision ENT ENT ED: Denies ear pain or sore throat Cardiovascular Cardiovascular: Reports chest pain, palpitations and racing heartbeat Respiratory/Chest Respiratory/Chest: Reports dyspnea; Denies cough or sputum Gastrointestinal Gastrointestinal: Denies abdominal pain, constipation, diarrhea, nausea or vomiting Genitourinary Genitourinary ED: Denies dysuria, hematuria or urinary frequency Musculoskeletal Musculoskeletal: Denies arthralgias, myalgias or neck pain Integumentary Denies abscess, Abrasions or rash Neurologic Neurologic: Denies headache(s), paresthesias or weakness Psychiatric Psychiatric: Denies anxiety, depression, suicidal ideation or suicidal thoughts Endocrine Endocrinology: Denies polydipsia or polyuria EXAM Physical Exam Const Vital Signs: 04/21/22 01:28 04/21/22 01:31 04/21/22 01:28 Temperature 98.3 F Temperature Source Temporal Pulse Rate 166 H Respiratory Rate 21 H Respiratory Effort Normal Non-Labored Blood Pressure 124/52 H Blood Pressure Mean 76 Pulse Ox 98 Oxygen Delivery Method Room Air 04/21/22 01:37 04/21/22 02:05 04/21/22 02:30 Temperature Temperature Source Pulse Rate 139 H 96 Respiratory Rate 14 18 Respiratory Effort Blood Pressure 116/57 L 107/55 L Blood Pressure Mean 76 72 Pulse Ox 98 96 96 Oxygen Delivery Method Room Air Room Air Room Air Positive well nourished General Appearance ED: NAD; Negative for pallor HEENT Reports moist mucous membranes normocephalic and atraumatic Eyes PERRL and EOMs intact bilaterally Chest Wall inspection of chest normal Resp clear to auscultation bilaterally Resp Narrative: Slightly tachypneic. Effort and Inspection: Negative for respiratory distress Auscultation: Negative for rales, rhonchi or wheezes Cardio Rate: tachycardic Rhythm: abnormal rhythm irregularly irregular Peripheral Pulses: pulses 2+ throughout Extremity normal to inspection General Extremety ED: Negative for edema General Extremity: Negative for edema Neuro oriented x3, CN's II-XII intact bilaterally and no sensory deficits noted Sensorium / Orientation: awake and alert Psych mental status grossly normal Skin no rashes or lesions noted General Skin Exam: Negative for jaundice or pallor Heart Score History: Moderately Suspicious ECG: Normal Age: >/= 65 years Risk Factors: >/= 3 Risk Factors or History of CAD Score: 5 MDM MDM MDM Narrative Medical decision making narrative: Patient presenting with chest pain that radiates to the left shoulder. He states it started about an hour ago. He is found to be in atrial fibrillation. His EKG on my interpretation shows atrial fibrillation at 130 bpm. Patient given 20 mg of Cardizem IV. He is given a liter of IV fluids. He is on Eliquis so I have low suspicion for PE. Chest x-ray my interpretation shows no acute cardiopulmonary process and radiologist interprets this and agrees. CBC shows a normal white blood cell count. Hemoglobin macular stable. Platelets are normal. Renal function and electrolytes within normal limits. Initial high-sensitivity troponin came back at 11. Patient's heart rate did come down to the 90s. Blood pressure also dropped to 107/55. He is feeling improved. When I reevaluated him his heart rate is bouncing anywhere from the 90s to the 130s and then back to the 90s. Patient does have an extensive cardiac history. He has an HEART score of 5. I will obtain a delta troponin but given the patient's heart rate and history I think he would benefit from observation. He will likely need a Cardizem drip. I will discuss with the hospitalist. Impression 1. Chest pain 2. A. fib with RVR 3. Dyspnea Lab Data Attestation: I reviewed the patient's lab results. Labs: Laboratory Results - last 24 hr 04/21/22 04/21/22 04/21/22 01:37 01:37 01:37 WBC 10.5 RBC 4.20 L Hgb 13.4 Hct 39.3 L MCV 93.6 MCH 31.9 MCHC 34.1 RDW Std Deviation 43.9 RDW Coeff of Calista 12.9 Plt Count 233 MPV 9.5 Immature Gran % (Auto) 0.400 Neut % (Auto) 62.3 Lymph % (Auto) 23.9 [place] % (Auto) 9.8 Eos % (Auto) 2.9 Baso % (Auto) 0.7 Absolute Neuts (auto) 6.6 Absolute Lymphs (auto) 2.51 Nucleated RBC % 0 Sodium 142 Potassium 3.8 Chloride 110 H Carbon Dioxide 24.0 Anion Gap 8 BUN 21 H Creatinine 1.10 Estim Creat Clear Calc 68.45 Est GFR (MDRD) Af Amer 86 Est GFR (MDRD) Non-Af 71 BUN/Creatinine Ratio 19.1 Glucose 127 H Calcium 9.1 Magnesium 1.8 Troponin I High Sens 11 Radiography Diagnostic Testing: Clinical Impression(s) from Imaging Studies Chest X-Ray 04/21/22 01:50 IMPRESSION: Degenerative changes, as described above. No demonstrated acute cardiopulmonary process. Electronically Signed: Lukasz Tian MD at 2:13 EST , Discharge Plan Triage Chief Complaint: Chest Pain ED Provider: Avni Kenny Dx/Rx/DC Orders Prescriptions: No Action nitroglycerin 0.4 mg tablet, sublingual 0.4 mg SL Q5-15M PRN (Reason: Chest Pain) ticagrelor 90 mg tablet 90 mg PO BID Qty: 180 3RF apixaban 5 mg tablet 5 mg PO BID Qty: 180 3RF atorvastatin 80 mg tablet 80 mg PO QHS Qty: 90 4RF carvedilol 25 mg tablet 25 mg PO BID Qty: 180 3RF losartan 25 mg tablet See Rx Instructions .ROUTE .COMPLEX Qty: 90 3RF Dose Instruction: TAKE 1 TABLET BY MOUTH EVERY DAY Rx Instructions: TAKE 1 TABLET BY MOUTH EVERY DAY Primary Care Provider: River Cho Referrals: River Cho MD [Primary Care Provider] -
[2022-04-21] MEDS: dilTIAZem 25 MG/5 ML Vial 20 MG IV BOLUS (01:58)
[2022-04-21 02:06] LABS: Anion Gap 8 (5-15); BUN 21 mg/dL (7-18); BUN/Creat Ratio 19.1 RATIO (10-20); Calcium,Total 9.1 mg/dL (8.5-10.1); Chloride 110 mmol/L (98-107); EST Glomerular Filtration Rate 71 mL/min (>60); Est Glom Filt Rate - Afr Amer 86 mL/min (>60); Estimated Creatinine Clearance 68.45 ml/min; Glucose 127 mg/dL (74-106); Potassium 3.8 mmol/L (3.5-5.1); Sodium Level 142 mmol/L (136-145); Troponin-I HS (w/2H Reflex) 11 pg/mL (3.0-78.0)
[2022-04-21 02:40] LABS: Magnesium 1.8 mg/dL (1.6-2.6)
--- NOTE | 2022-04-21 02:57 | HP.PCM_ITS ---
HPI - General General Date of Admission: 04/21/22 Date of Service: 04/21/22 Chief Complaint: Chest pain HPI Narrative TESHA POP, is a 66 M who presents to the emergency room with chief complaint of chest pain. Patient has significant past medical history of coronary artery disease with stents and history of coronary artery dissection and V. fib arrest. Today he describes waking up this evening with substernal chest pain radiating to his left shoulder described as a numbness and tingling and the chest pain was described as similar to acid reflux type of pain. He did not have shortness of breath. Due to his significant cardiac history patient came in for evaluation. Initial troponin is negative. EKG reveals atrial fibrillation with rapid ventricular response. Patient was given a dose of Cardizem and rate seemed to slow down but remained atrial fibrillation. Currently upon my evaluation the patient was now chest pain-free. No fevers or chills or nausea, and/or vomiting. We will admit the patient for observation and cycling of cardiac enzymes and will consult his twisting department end finder to evaluate further. [facility] Medical History Atherosclerosis of coronary artery of [place] heart without angina pectoris Atrial fibrillation with RVR (04/27/20) Cardiac arrest with ventricular fibrillation Coronary artery spasm Essential hypertension History of non-ST elevation myocardial infarction (NSTEMI) (04/27/20) History of ST elevation myocardial infarction (STEMI) (07/02/20) History of torsades de pointes (07/01/20) Hyperlipidemia Obesity RAULITO on CPAP Paroxysmal atrial fibrillation STEMI (ST elevation myocardial infarction) (07/01/20) Home Medications nitroglycerin 0.4 mg sublingual tablet 0.4 mg sublingual Q5-15M PRN Chest Pain 07/12/20 [History Last Taken Unknown] apixaban 5 mg tablet 5 mg PO BID #180 tabs 08/25/21 [Rx Last Taken Unknown] atorvastatin 80 mg tablet 80 mg PO QHS #90 tabs 08/25/21 [Rx Last Taken Unknown] carvedilol 25 mg tablet 25 mg PO BID #180 tabs 08/25/21 [Rx Last Taken Unknown] ticagrelor 90 mg tablet 90 mg PO BID #180 tabs 08/25/21 [Rx Last Taken Unknown] losartan 25 mg tablet See Rx Instructions .Route .COMPLEX #90 tabs 03/06/22 [Rx Last Taken Unknown] Allergy/AdvReac Type Severity Reaction Status Date / Time lisinopril AdvReac Intermediate cough, Verified 04/21/22 01:29 nasal drainage Family History Mother Cancer Father Heart disease Surgical History History of cardioversion (01/23/21) History of coronary artery stent placement (07/01/20) History of left heart catheterization (07/01/20) History of right and left heart catheterization (07/02/20) Social History Smoking Status: Never smoker alcohol intake: current alcohol intake frequency: holidays/special occasions only substance use type: does not use caffeine: Yes Type: coffee Number of servings: 1 ROS Constitutional Constitutional: Denies chills or fever(s) Eyes Eyes: Denies change in vision ENT HEENT: Denies abnormal hearing Cardiovascular Cardiovascular: Reports chest pain and palpitations Respiratory/Chest Respiratory/Chest: Denies cough Gastrointestinal Gastrointestinal: Denies abdominal pain Genitourinary Genitourinary: Denies dysuria Musculoskeletal Musculoskeletal: Denies back pain Integumentary Integumentary: Denies dry skin Neurologic Neurologic: Denies abnormal speech Psychiatric Psychiatric: Denies anxiety Vital Signs Vital Signs Vital Signs: 04/21/22 01:28 04/21/22 01:31 04/21/22 01:28 Temperature 98.3 F Temperature Source Temporal Pulse Rate 166 H Respiratory Rate 21 H Respiratory Effort Normal Non-Labored Blood Pressure 124/52 H Blood Pressure Mean 76 Pulse Ox 98 Oxygen Delivery Method Room Air 04/21/22 01:37 04/21/22 02:05 04/21/22 02:30 Temperature Temperature Source Pulse Rate 139 H 96 Respiratory Rate 14 18 Respiratory Effort Blood Pressure 116/57 L 107/55 L Blood Pressure Mean 76 72 Pulse Ox 98 96 96 Oxygen Delivery Method Room Air Room Air Room Air Weight Weight: 236 lb 12.423 oz Body Mass Index (BMI) 33.0 Physical Exam Const alert, oriented x3 and no apparent distress General Appearance: cooperative and well developed HEENT normocephalic and head/scalp atraumatic Eyes PERRL Neck no lymphadenopathy Lymph Lymphatic: no lymphadenopathy noted Resp normal respiratory effort, normal air movement and clear to auscultation bilaterally Cardio S1 normal heart sound and S2 normal heart sound Rhythm: abnormal rhythm irregularly irregular GI normal to inspection, nondistended, normoactive bowel sounds Extremity normal capillary refill Skin General Skin Exam: no breakdown Neuro no focal motor deficits and no sensory deficits noted Psych thought process normal Results Lab / Micro Data Result Diagrams: 04/21/22 01:37 04/21/22 01:37 Labs: Laboratory Results - last 24 hr 04/21/22 01:37: WBC 10.5, RBC 4.20 L, Hgb 13.4, Hct 39.3 L, MCV 93.6, MCH 31.9, MCHC 34.1, RDW Std Deviation 43.9, RDW Coeff of Calista 12.9, Plt Count 233, MPV 9.5, Immature Gran % (Auto) 0.400, Neut % (Auto) 62.3, Lymph % (Auto) 23.9, [place] % (Auto) 9.8, Eos % (Auto) 2.9, Baso % (Auto) 0.7, Absolute Neuts (auto) 6.6, Absolute Lymphs (auto) 2.51, Nucleated RBC % 0 04/21/22 01:37: Sodium 142, Potassium 3.8, Chloride 110 H, Carbon Dioxide 24.0, Anion Gap 8, BUN 21 H, Creatinine 1.10, Estim Creat Clear Calc 68.45, Est GFR (MDRD) Af Amer 86, Est GFR (MDRD) Non-Af 71, BUN/Creatinine Ratio 19.1, Glucose 127 H, Calcium 9.1, Troponin I High Sens 11 04/21/22 01:37: Magnesium 1.8 Radiology Impression Chest X-Ray 04/21/22 01:50 IMPRESSION: Degenerative changes, as described above. No demonstrated acute cardiopulmonary process. Electronically Signed: Lukasz Tian MD at 2:13 EST , Assessment & Plan Assessment/Plan (1) History of ST elevation myocardial infarction (STEMI): (2) History of torsades de pointes: (3) History of coronary artery stent placement: (4) Paroxysmal atrial fibrillation: (5) Essential hypertension: (6) Hyperlipidemia: (7) Chest pain: PLAN: Plan 1. Chest pain with extensive coronary artery disease?admit patient to progressive care unit, cycle cardiac enzymes make n.p.o. for now, consult Dr. Kitchen for evaluation in the a.m. We will have orders for oxygen ,nitroglycerin Currently patient is chest pain-free. 2. Hyperlipidemia?continue statin 3. Hypertension?hold oral medications patient has had Cardizem for atrial fibrillation and his borderline hypotensive 4. Paroxysmal atrial fibrillation patient is already anticoagulated on Eliquis and Brilinta will monitor for rate 5. DVT prophylaxis?patient is anticoagulated Charges/Coding Visit Charges OBSV E&M: 24923 Initial observation care L2
[2022-04-21 03:39] LABS: Reflex Troponin-HS? (from REC) Y
[2022-04-21 04:20] LABS: Troponin-I HS 31 pg/mL (3.0-78.0)
--- NOTE | 2022-04-21 06:07 | EKG12_ITS ---
Test Reason : AM Blood Pressure : / mmHG Vent. Rate : 121 BPM Atrial Rate : 000 BPM P-R Int : 000 ms QRS Dur : 096 ms QT Int : 314 ms P-R-T Axes : 000 018 -05 degrees QTc Int : 445 ms Atrial fibrillation with rapid ventricular response Nonspecific T wave abnormality Abnormal ECG Confirmed by SARITA MACARIO, JANA ([id number]), science editor DAVID SANCHEZ ([id number]) on 04/24/2022 7:49:41 AM Referred By: DONG Confirmed By:JANA STEIN MD
--- NOTE | 2022-04-21 07:53 | PCM.CONS.C ---
Assessment & Plan Assessment/Plan (1) Paroxysmal atrial fibrillation: PLAN: He is presenting with paroxysmal atrial fibrillation. His ventricular response rate is elevated but does not appear to be markedly elevated. I would recommend at this time that we bolused him with intravenous diltiazem and then add oral diltiazem to his regimen. He should continue on the beta-cresencio and anticoagulation and can be followed up as an outpatient. (2) History of coronary artery stent placement: PLAN: He is status post previous angioplasty and stenting. With his rapid ventricular response rate his high-sensitivity troponin is still normal and I do not think that this needs to be evaluated. (3) Essential hypertension: PLAN: He has a history of hypertension his blood pressure is under good control I would not recommend that we make any changes. (4) Hyperlipidemia: PLAN: He does have a history of hyperlipidemia and will continue with aggressive risk factor modification. Thank you for allowing me to participate in the care of your patient. Please don't hesitate to call if any issues arise. HPI Consult Data Date of Consult: 04/21/22 HPI Narrative HPI Narrative: TESHA POP, is a 66 M who presented to the emergency room with palpitations which she said has been going on for at least a few hours. There was minimal chest discomfort associated with this. In the emergency room he was noted to be in atrial fibrillation with rapid ventricular response rate. Cardiac enzymes were noted to be negative. Cardiology was called for further evaluation and management. He had presented in April 2018 with chest discomfort underwent a left heart catheterization which demonstrated a 60% proximal LAD stenosis, 90% first diagonal stenosis and the right coronary artery which had spasm.? In April 2020 he presented with atrial fibrillation with rapid ventricular response rate and had an non-ST elevation myocardial infarction.? Medical therapy was recommended.? He underwent a stress test in June 2020 with abnormal EKG changes for which he underwent a cardiac catheterization.? Demonstrated an 80% LAD lesion with a high-grade septal customer solutions teammate.? He underwent PCI of his left anterior descending artery and developed a spiral dissection with thrombosis for which she underwent further drug-eluting stent placed to the LAD.? He developed a V. fib arrest while he was in the hospital and was brought back to the cardiac catheterization lab and underwent relook evaluation his LAD was patent though the first diagonal vessel was jailed.? He had developed torsade and underwent treatment for the above.? He had an intra-aortic balloon pump placed and he was transferred to [facility] where he developed further torsades which was treated.? He subsequently was noted to be in atrial fibrillation he was scheduled to have a DC cardioversion but spontaneously converted to sinus rhythm.? He has been on anticoagulation as well as on beta-cresencio.? He says that he has had intermittent doses that he has omitted. At this time he says that he feels well he denies any chest pain or shortness of breath or paroxysmal nocturnal dyspnea or pedal edema no neck arm or jaw discomfort suggest angina.? His physical exam is unremarkable except for his irregular heart rate. [facility] Medical History Atherosclerosis of coronary artery of [place] heart without angina pectoris Atrial fibrillation with RVR (04/27/20) Cardiac arrest with ventricular fibrillation Coronary artery spasm Essential hypertension History of non-ST elevation myocardial infarction (NSTEMI) (04/27/20) History of ST elevation myocardial infarction (STEMI) (07/02/20) History of torsades de pointes (07/01/20) Hyperlipidemia Obesity RAULITO on CPAP Paroxysmal atrial fibrillation STEMI (ST elevation myocardial infarction) (07/01/20) Home Medications nitroglycerin 0.4 mg sublingual tablet 0.4 mg sublingual Q5-15M PRN Chest Pain 07/12/20 [History Last Taken Unknown] apixaban 5 mg tablet 5 mg PO BID #180 tabs 08/25/21 [Rx Last Taken Unknown] atorvastatin 80 mg tablet 80 mg PO QHS #90 tabs 08/25/21 [Rx Last Taken Unknown] carvedilol 25 mg tablet 25 mg PO BID #180 tabs 08/25/21 [Rx Last Taken Unknown] ticagrelor 90 mg tablet 90 mg PO BID #180 tabs 08/25/21 [Rx Last Taken Unknown] losartan 25 mg tablet See Rx Instructions .Route .COMPLEX #90 tabs 03/06/22 [Rx Last Taken Unknown] Allergy/AdvReac Type Severity Reaction Status Date / Time lisinopril AdvReac Intermediate cough, Verified 04/21/22 01:29 nasal drainage Family History Mother Cancer Father Heart disease Surgical History History of cardioversion (01/23/21) History of coronary artery stent placement (07/01/20) History of left heart catheterization (07/01/20) History of right and left heart catheterization (07/02/20) Social History Smoking Status: Never smoker alcohol intake: current alcohol intake frequency: holidays/special occasions only substance use type: does not use caffeine: Yes Type: coffee Number of servings: 1 ROS Constitutional Constitutional: Denies fever(s) or weight loss Eyes Eyes: Reports systems reviewed and no addt'l complaints, except as documented ENT HEENT: Reports systems reviewed and no addt'l complaints, except as documented Cardiovascular Cardiovascular: Reports palpitations; Denies chest pain at rest, chest pain with activity, dyspnea at rest, dyspnea on exertion, edema or paroxysmal nocturnal dyspnea Respiratory/Chest Respiratory/Chest: Denies dyspnea on exertion, productive cough, shortness of breath at rest or shortness of breath with exertion Gastrointestinal Gastrointestinal: Denies change in bowel habits, nausea, vomiting or weight changes Genitourinary Genitourinary: Denies difficulty urinating Musculoskeletal Musculoskeletal: Denies joint stiffness or muscle weakness Integumentary Integumentary: Denies lesions Neurologic Neurologic: Denies dizziness or syncope Psychiatric Psychiatric: Denies anxiety Endocrine Endocrinology: Denies excessive sweating or fatigue Hematologic/Lymphatic Hematologic/Lymphatic: Denies anemia Allergic/Immunologic Allergic/Immunologic: Denies seasonal rhinorrhea Physical Exam Const alert, oriented x3 and no apparent distress General Appearance: cooperative and well developed HEENT normocephalic and head/scalp atraumatic Eyes PERRL Neck no lymphadenopathy Lymph Lymphatic: no lymphadenopathy noted Resp normal respiratory effort, normal air movement and clear to auscultation bilaterally Cardio S1 normal heart sound and S2 normal heart sound Rhythm: abnormal rhythm irregularly irregular GI normal to inspection, nondistended, normoactive bowel sounds Extremity normal capillary refill Skin General Skin Exam: no breakdown Neuro no focal motor deficits and no sensory deficits noted Psych thought process normal Risk Stratification Risk Stratification Applicable: No Objective Data Vital Signs: Vital Signs Temp Pulse Resp BP Pulse Ox O2 Del Method O2 Flow Rate 97.9 F 96 11 L 122/65 H 99 Nasal Cannula 2 04/21/22 07:51 04/21/22 07:51 04/21/22 07:51 04/21/22 07:51 04/21/22 07:51 04/21/22 07:51 04/21/22 07:51 Oxygen Flow Rate (L/min) 2 Oxygen Delivery Method Nasal Cannula Weight: 236 lb 12.423 oz Body Mass Index (BMI) 33.0 Intake & Output: Intake and Output for Last 24 Hours 04/19/22 04/20/22 04/21/22 23:59 23:59 23:59 Intake Total 500 / 500 Balance 500 / 500 Lab / Micro Data Result Diagrams: 04/21/22 01:37 04/21/22 01:37 Labs: Laboratory Results - last 24 hr 04/21/22 01:37: WBC 10.5, RBC 4.20 L, Hgb 13.4, Hct 39.3 L, MCV 93.6, MCH 31.9, MCHC 34.1, RDW Std Deviation 43.9, RDW Coeff of Calista 12.9, Plt Count 233, MPV 9.5, Immature Gran % (Auto) 0.400, Neut % (Auto) 62.3, Lymph % (Auto) 23.9, [place] % (Auto) 9.8, Eos % (Auto) 2.9, Baso % (Auto) 0.7, Absolute Neuts (auto) 6.6, Absolute Lymphs (auto) 2.51, Nucleated RBC % 0 04/21/22 01:37: Sodium 142, Potassium 3.8, Chloride 110 H, Carbon Dioxide 24.0, Anion Gap 8, BUN 21 H, Creatinine 1.10, Estim Creat Clear Calc 68.45, Est GFR (MDRD) Af Amer 86, Est GFR (MDRD) Non-Af 71, BUN/Creatinine Ratio 19.1, Glucose 127 H, Calcium 9.1, Troponin I High Sens 11 04/21/22 01:37: Magnesium 1.8 04/21/22 03:57: Troponin I High Sens 31 Rhythm Strip Rhythm Strip: A-fib Cardiology Labs/Tests 04/21/22 01:37: WBC 10.5, RBC 4.20 L, Hgb 13.4, Hct 39.3 L, MCV 93.6, MCH 31.9, MCHC 34.1, Plt Count 233, MPV 9.5, Immature Gran % (Auto) 0.400, Neut % (Auto) 62.3, Lymph % (Auto) 23.9, [place] % (Auto) 9.8, Eos % (Auto) 2.9, Baso % (Auto) 0.7, Absolute Neuts (auto) 6.6, Nucleated RBC % 0 04/21/22 01:37: Sodium 142, Potassium 3.8, Chloride 110 H, Carbon Dioxide 24.0, Anion Gap 8, BUN 21 H, Creatinine 1.10, Est GFR (MDRD) Af Amer 86, Est GFR (MDRD) Non-Af 71, BUN/Creatinine Ratio 19.1, Glucose 127 H, Calcium 9.1 04/21/22 01:37: Magnesium 1.8 Rhythm: EKG: ECHO: Stress Test: Cardiac Cath: PCI: CT Surgery: Holter monitor: EPS: PPM: CXR: Chest CT Scan: Radiography Diagnostic Testing: Radiology Impression Chest X-Ray 04/21/22 01:50 IMPRESSION: Degenerative changes, as described above. No demonstrated acute cardiopulmonary process. Electronically Signed: Lukasz Tian MD at 2:13 EST Reading Location ID and State: [facility] / [place] Tel , Service support ,
[2022-04-21] MEDS: dilTIAZem 25 MG/5 ML Vial IV BOLUS (08:15)
[2022-04-21] MEDS: 0.9% Saline Lock 10 ML Syringe IV (08:15)
[2022-04-21 08:18] LABS: Absolute Lymphocyte Count 1.78 X10^3/uL (0.83-4.51); Absolute Neutrophil Count 5.2 X10^3/uL (2.0-7.7); Basophil# 0.05 X10^3/uL; Basophil% 0.6 % (0-1); Eosinophil# 0.24 X10^3/uL; Hemoglobin 12.9 g/dL (13.0-16.5); Lymphocyte # 1.78 X10^3/ul (0.83-4.51); Lymphocyte % 22.4 % (19-41); Mean Corp Hgb Conc 34.9 g/dL (32-36); Mean Corpuscular Hgb 33.8 pg (27.0-32.0); Mean Corpuscular Volume 96.9 fL (80-94); Mean Platelet Vol. 9.6 fl (6.2-12.0); Monocyte# 0.68 X10^3/uL; Monocyte% 8.6 % (0-10); NRBC Flagged by Analyzer 0 % (0-5); Neutrophil # 5.18 X10^3/uL (2.7-7.7); Neutrophil % 65.1 % (47-70); Platelet Count 206 K/mm3 (150-450); RBC Distribution Width SD 46.2 fl (35.1-43.9); Red Blood Count 3.82 M/mm3 (4.6-6.2)
[2022-04-21 08:51] LABS: Troponin-I HS 46 pg/mL (3.0-78.0)
[2022-04-21 08:56] LABS: Anion Gap 8 (5-15); BUN 23 mg/dL (7-18); BUN/Creat Ratio 26.1 RATIO (10-20); Calcium,Total 8.5 mg/dL (8.5-10.1); Chloride 108 mmol/L (98-107); Creatinine, Serum 0.88 mg/dL (0.70-1.30); EST Glomerular Filtration Rate 91 mL/min (>60); Est Glom Filt Rate - Afr Amer 111 mL/min (>60); Estimated Creatinine Clearance 85.57 ml/min; Glucose 107 mg/dL (74-106); Potassium 4.1 mmol/L (3.5-5.1); Sodium Level 140 mmol/L (136-145)
[2022-04-21 09:19] LABS: International Normalized Ratio 1.4; Prothrombin Time (Protime)PT. 17.1 SECONDS (11.7-14.9)
[2022-04-21] MEDS: dilTIAZem CD 120 MG Capsule PO ×2 (09:22→10:26)
[2022-04-21] MEDS: Losartan Potassium 25 MG Tablet PO (09:22)
[2022-04-21] MEDS: Carvedilol 25 MG Tablet PO (09:23)
--- NOTE | 2022-04-21 10:43 | DCINST_ITS ---
Discharge Instructions Diet Discharge Diet: Low fat / Low cholesterol and 2000 mg Sodium Diet Activity Discharge Activity: Return to Normal Activity Dressing / Incision Call your doctor if you observe: Fever of 101 or Higher, Coldness, Increased Pain, Numbness or Tingling, Change in Color, Inability to urinate, Inability to have a bowel movement, Shortness of breath, Dizziness, Fainting spells, Swelling in the ankles, Chest pain, Prolonged hiccupping, Increased palpitations (irregular heartbeat), Calf discomfort and Uncontrolled pain Follow Up Care Test Results: Test results from this visit will be discussed in further detail at your follow- up appointment, if applicable. Discharge Plan Admission Admit Date/Time: 04/21/22 03:06 Primary Reason for Your Visit: Paroxysmal A. fib with RVR Attending Provider: Bret Soto Primary Care Provider: River Cho Consulting Providers: Harsh Kitchen ; Vasquez Crump Discharge Orders/Prescriptions Prescriptions: New diltiazem HCl 120 mg Capsule,Extended Release 24hr 120 mg PO DAILY Qty: 30 2RF Continued nitroglycerin 0.4 mg tablet, sublingual 0.4 mg SL Q5-15M PRN (Reason: Chest Pain) ticagrelor 90 mg tablet 90 mg PO BID Qty: 180 3RF apixaban 5 mg tablet 5 mg PO BID Qty: 180 3RF atorvastatin 80 mg tablet 80 mg PO QHS Qty: 90 4RF carvedilol 25 mg tablet 25 mg PO BID Qty: 180 3RF losartan 25 mg tablet See Rx Instructions .ROUTE .COMPLEX Qty: 90 3RF Dose Instruction: TAKE 1 TABLET BY MOUTH EVERY DAY Rx Instructions: TAKE 1 TABLET BY MOUTH EVERY DAY Referrals / Follow Up: River Cho MD [Primary Care Provider] - Harsh Kitchen MD [Med Staff - Active Staff] - Within 2 Weeks Disposition Disposition (needs filled in before D/C Order can be placed): Home, Self Care
--- NOTE | 2022-04-21 11:05 | PCM.DC.SUM ---
Providers Date of Admission: 04/21/22 Primary Care Physician: Dr. River Cho MD Consultations 04/21/22 04:04 Consult: Cardiology Routine Consulting Provider: Harsh Kitchen Reason for Consult: Chest pain, atrial fibrillation EMERGENT Consult: No MD Notified: Yes Date Notified: 04/21/22 Time Notified: 03:08 Method of Notification: Text Reason For Visit: CHEST PAIN Diagnosis Discharge Diagnosis (1) Paroxysmal atrial fibrillation: Status: Chronic Code(s): I48.0 - Paroxysmal atrial fibrillation (2) History of coronary artery stent placement: Status: Chronic Code(s): Z95.5 - Presence of coronary angioplasty implant and graft (3) Essential hypertension: Status: Chronic Code(s): I10 - Essential (primary) hypertension (4) Hyperlipidemia: Status: Chronic Code(s): E78.5 - Hyperlipidemia, unspecified (5) History of ST elevation myocardial infarction (STEMI): Status: Resolved Code(s): I25.2 - Old myocardial infarction (6) History of torsades de pointes: Status: Chronic Code(s): Z86.79 - Personal history of other diseases of the circulatory system (7) Chest pain: Status: Acute Code(s): R07.9 - Chest pain, unspecified Medications at Discharge Home Medications nitroglycerin 0.4 mg sublingual tablet 0.4 mg sublingual Q5-15M PRN Chest Pain 07/12/20 apixaban 5 mg tablet 5 mg PO BID #180 tabs 08/25/21 atorvastatin 80 mg tablet 80 mg PO QHS #90 tabs 08/25/21 carvedilol 25 mg tablet 25 mg PO BID #180 tabs 08/25/21 ticagrelor 90 mg tablet 90 mg PO BID #180 tabs 08/25/21 losartan 25 mg tablet See Rx Instructions .Route .COMPLEX #90 tabs 03/06/22 diltiazem HCl 120 mg capsule,extended release 24 hr 120 mg PO DAILY #30 caps 04/21/22 Hospital Course Summary of Care Provided Hospital Course: Chest diThis is 58-year-old question gentleman was admitted with palpitation and little short of breath. He has history of coronary artery disease, PAF diagnosed about 5 years ago, hypertension, dyslipidemia [place] V. fib arrest. Patient had palpitation for few hours before coming along with the chest discomfort. The chest discomfort was thought to be due to palpitation. Patient was admitted as a PCU status in ED as overflow bed. 1. Paroxysmal A. fib with RVR: Heart rate was controlled with Cardizem IV bolus and then started on Cardizem CD 120 mg p.o. daily. In ED, heart rate was controlled running in 90s. Patient is already on Cardizem CD and apixaban. 2. Coronary artery disease status post NSTEMI, PCI torsade disease point, V. fib's status post cardiac arrest in the past. Currently stable. Patient not feeling dizzy or lightheaded. 3. Hypertension and dyslipidemia: Blood pressure is controlled. Discharge medication reconciliation done. Discharge follow-up instructions completed. Discharge process discussed with the patient and all questions were answered to patient's satisfaction. Total time spent, exact 35 minutes on discharge meds reconciliation, examination, coordination of care with nurses and ancillary staff, review of imaging and blood test and discussion with the patient on follow-up instructions. Physical Exam Narrative Physical exam Not having any chest pain or shortness of breath. Heart rate A. fib controlled. Physical exam General: Alert, Oriented x3, Cooperative HEENT: Atraumatic, PERRLA, EOMI, Normocephalic Oral: No Gingival or Mucosal Lesions/ Ulcerations Neck: Supple, No JVD, Negative Carotid Bruits Lungs: Air entry diminished in bilateral lung bases. No crepitation/rhonchi Cardiovascular: Irregular rate and rhythm, Normal S1, Normal S2, systolic murmur. Abdomen: Bowel Sounds Present, Soft, Non Tender, Non-Distended : No renal angle tenderness. No suprapubic tenderness. Extremities: No edema, Capillary Refill Less than 3 Seconds Skin: No rashes, No breakdown Musculoskeletal: No Tenderness to Palpation of Joints or Extremities Neurological: Cranial nerves II-XII grossly intact, DTR 2+/4 and Symmetrical, Neuro grossly intact Psych/Mental Status: Normal Affect, Appropriate. Weight / BMI Weight Weight: 236 lb 12.423 oz Body Mass Index (BMI) 33.0 ABG / Lab / Microbiology Data Result Diagrams: 04/21/22 07:56 04/21/22 07:56 Laboratory: Laboratory Results - last 24 hr 04/21/22 01:37: WBC 10.5, RBC 4.20 L, Hgb 13.4, Hct 39.3 L, MCV 93.6, MCH 31.9, MCHC 34.1, RDW Std Deviation 43.9, RDW Coeff of Calista 12.9, Plt Count 233, MPV 9.5, Immature Gran % (Auto) 0.400, Neut % (Auto) 62.3, Lymph % (Auto) 23.9, [place] % (Auto) 9.8, Eos % (Auto) 2.9, Baso % (Auto) 0.7, Absolute Neuts (auto) 6.6, Absolute Lymphs (auto) 2.51, Nucleated RBC % 0 04/21/22 01:37: Sodium 142, Potassium 3.8, Chloride 110 H, Carbon Dioxide 24.0, Anion Gap 8, BUN 21 H, Creatinine 1.10, Estim Creat Clear Calc 68.45, Est GFR (MDRD) Af Amer 86, Est GFR (MDRD) Non-Af 71, BUN/Creatinine Ratio 19.1, Glucose 127 H, Calcium 9.1, Troponin I High Sens 11 04/21/22 01:37: Magnesium 1.8 04/21/22 03:57: Troponin I High Sens 31 04/21/22 07:56: WBC 8.0, RBC 3.82 L, Hgb 12.9 L, Hct 37.0 L, MCV 96.9 H, MCH 33.8 H, MCHC 34.9, RDW Std Deviation 46.2 H, RDW Coeff of [place]ista 13.0, Plt Count 206, MPV 9.6, Immature Gran % (Auto) 0.300, Neut % (Auto) 65.1, Lymph % (Auto) 22.4, [place] % (Auto) 8.6, Eos % (Auto) 3.0, Baso % (Auto) 0.6, Absolute Neuts (auto) 5.2, Absolute Lymphs (auto) 1.78, Nucleated RBC % 0 04/21/22 07:56: PT 17.1 H, INR 1.4 04/21/22 07:56: Sodium 140, Potassium 4.1, Chloride 108 H, Carbon Dioxide 24.0, Anion Gap 8, BUN 23 H, Creatinine 0.88, Estim Creat Clear Calc 85.57, Est GFR (MDRD) Af Amer 111, Est GFR (MDRD) Non-Af 91, BUN/Creatinine Ratio 26.1 H, Glucose 107 H, Calcium 8.5 04/21/22 07:56: Troponin I High Sens 46 Radiography Diagnostic Testing: Radiology Impression Chest X-Ray 04/21/22 01:50 IMPRESSION: Degenerative changes, as described above. No demonstrated acute cardiopulmonary process. Electronically Signed: Lukasz Tian MD at 2:13 EST Reading Location ID and State: [facility] / [place] Tel , Service support , D/C Instructions Discharge Diet: Low fat / Low cholesterol and 2000 mg Sodium Diet Call your doctor if you observe: Fever of 101 or Higher, Coldness, Increased Pain, Numbness or Tingling, Change in Color, Inability to urinate, Inability to have a bowel movement, Shortness of breath, Dizziness, Fainting spells, Swelling in the ankles, Chest pain, Prolonged hiccupping, Increased palpitations (irregular heartbeat), Calf discomfort and Uncontrolled pain Meaningful Use Info Meaningful Use Diagnoses (Choose all that apply): None applicable Discharge Plan Admission Admit Date/Time: 04/21/22 03:06 Primary Reason for Your Visit: Paroxysmal A. fib with RVR Attending Provider: Bret Soto Primary Care Provider: River Cho Consulting Providers: Harsh Kitchen ; Vasquez Crump Discharge Orders/Prescriptions Prescriptions: New diltiazem HCl 120 mg Capsule,Extended Release 24hr 120 mg PO DAILY Qty: 30 2RF Continued nitroglycerin 0.4 mg tablet, sublingual 0.4 mg SL Q5-15M PRN (Reason: Chest Pain) ticagrelor 90 mg tablet 90 mg PO BID Qty: 180 3RF apixaban 5 mg tablet 5 mg PO BID Qty: 180 3RF atorvastatin 80 mg tablet 80 mg PO QHS Qty: 90 4RF carvedilol 25 mg tablet 25 mg PO BID Qty: 180 3RF losartan 25 mg tablet See Rx Instructions .ROUTE .COMPLEX Qty: 90 3RF Dose Instruction: TAKE 1 TABLET BY MOUTH EVERY DAY Rx Instructions: TAKE 1 TABLET BY MOUTH EVERY DAY Referrals / Follow Up: Harsh Kitchen MD [Med Staff - Active Staff] - Within 2 Weeks River Cho MD [Primary Care Provider] - Disposition Disposition (needs filled in before D/C Order can be placed): Home, Self Care Charges/Coding Visit Charges OBSV E&M: 27826 Observation care discharge
== END 2022-04-21 11:03 | disposition home or self-care (01) ==
LOC: ED 02:48 → PCU 03:57
PROVIDERS: Admitting Provider Family Medicine; Emergency Provider Student in an Organized Health Care Education/Training Program; PCP Family Medicine; Visit Provider Internal Medicine
DX: I48.0 Paroxysmal atrial fibrillation (principal); E78.5 Hyperlipidemia, unspecified; I25.2 Old myocardial infarction; Z79.01 Long term (current) use of anticoagulants; I25.10 Atherosclerotic heart disease of native coronary artery without angina pectoris; I10 Essential (primary) hypertension; Z79.899 Other long term (current) drug therapy; G47.33 Obstructive sleep apnea (adult) (pediatric); Z86.74 Personal history of sudden cardiac arrest; E66.9 Obesity, unspecified; Z68.33 Body mass index [BMI] 33.0-33.9, adult; Z95.5 Presence of coronary angioplasty implant and graft; Z86.79 Personal history of other diseases of the circulatory system
CPT/HCPCS: 36415; 71045; 80048; 83735; 84484; 85025; 85610; 93005; 96374; 96376; 99218; 99285; J7040; A4216; G0378

== ENCOUNTER → 2022-08-12 | Outpatient (CLI) | payer MEDICARE, OTHER, SELFPAY ==
[2021-10-29 10:17] VITALS: BMI 33.0
[2022-08-12 08:36] LABS: ALB/GLOB Ratio 1.1 RATIO (0.9-2.4); AST(SGOT) 28 U/L (15-37); Alanine Aminotransfer ALT/SGPT 40 U/L (16-61); Albumin, Serum 3.7 g/dL (3.2-5.0); Alkaline Phosphatase 94 U/L (45-117); Anion Gap 2 (5-15); BUN 21 mg/dL (7-18); Bilirubin, Direct 0.17 mg/dL (0.00-0.30); Calcium,Total 8.8 mg/dL (8.5-10.1); Chloride 112 mmol/L (98-107); Cholesterol 162 mg/dL (200); Creatinine, Serum 1.05 mg/dL (0.70-1.30); EST Glomerular Filtration Rate 75 mL/min (>60); Est Glom Filt Rate - Afr Amer 90 mL/min (>60); Globulin 3.4 g/dL (2.2-4.2); Glucose 94 mg/dL (74-106); High Density Lipoprotein 45 mg/dL; Potassium 4.2 mmol/L (3.5-5.1); Protein, Total 7.1 g/dL (6.4-8.2); Sodium Level 140 mmol/L (136-145); Triglycerides 64 mg/dL; Very Low Density Lipoprotein 13 mg/dL (5-40)
--- NOTE | 2022-08-12 14:15 | PFTCOMP ---
COMPLETE PULMONARY FUNCTION TEST INTERPRETATION Brief HPI: Patient is a 66-year-old male, currently under the care of Ana Carr, who presents to [facility] for complete pulmonary function tests secondary to diagnosis of high risk med use. Respiratory therapist reports good effort and reproducible results. Interpretation: Forced expiration spirometry shows no large airways obstructive ventilatory defect with an FEV1 of 95% predicted. There is no significant bronchodilator response by strict ATS criteria. Spirograms are of good quality and plateau normally. The respiratory flow volume loop shows a normal pattern. Lung volumes by body plethysmography show a normal total lung capacity at 6.96 L, 103% predicted. All other lung volumes are within normal limits. Diffusion capacity by carbon monoxide is normal at 107% predicted. The airway resistance is normal. No previous pulmonary function tests were available for review. Impression: These pulmonary function tests are within normal limits
== END | disposition home or self-care (01) ==
LOC: PSN 06:39
PROVIDERS: PCP Family Medicine; Referring Provider Physician Assistant Medical; Visit Provider Physician Assistant Medical
DX: I48.91 Unspecified atrial fibrillation (principal); Z79.899 Other long term (current) drug therapy
CPT/HCPCS: 36415; 80053; 80061; 82248; 84443; 94060; 94726; 94729

== ENCOUNTER → 2023-02-04 | Outpatient (CLI) | payer MEDICARE, OTHER, SELFPAY ==
[2021-10-29 10:17] VITALS: BMI 33.0
[2023-02-04 11:39] LABS: AST(SGOT) 18 U/L (15-37); Alanine Aminotransfer ALT/SGPT 30 U/L (16-61); Albumin, Serum 3.8 g/dL (3.2-5.0); Alkaline Phosphatase 82 U/L (45-117); Bilirubin, Direct 0.22 mg/dL (0.00-0.30); Cholesterol 162 mg/dL (200); Globulin 3.2 g/dL (2.2-4.2); High Density Lipoprotein 43 mg/dL; T4 Free Direct 0.91 ng/dL (0.76-1.46); Triglycerides 97 mg/dL; Very Low Density Lipoprotein 19 mg/dL (5-40)
== END | disposition home or self-care (01) ==
LOC: LAB 09:27
PROVIDERS: PCP Family Medicine; Referring Provider Physician Assistant Medical; Visit Provider Physician Assistant Medical
DX: I25.10 Atherosclerotic heart disease of native coronary artery without angina pectoris (principal); I48.91 Unspecified atrial fibrillation
CPT/HCPCS: 36415; 80061; 80076; 84439; 84443; 84481

== ENCOUNTER 2023-02-24 08:31 | Inpatient (IN) | payer MEDICARE, OTHER, SELFPAY ==
[2021-10-29 10:17] VITALS: BMI 33.0
--- NOTE | 2023-02-24 07:59 | PCM.HP.CAR ---
Documented by User: RENEE Klnie 02/24/23 08:40 [facility] - [facility] General Date of Service: 02/24/23 Chief Complaint: Initiation of sotalol therapy HPI Narrative TESHA POP, is a 67 M who presents to the hospital stay for initiation of sotalol therapy. In April 2018 with chest discomfort underwent a left heart catheterization which demonstrated a 60% proximal LAD stenosis, 90% first diagonal stenosis and the right coronary artery which had spasm. In April 2020 he presented with atrial fibrillation with rapid ventricular response rate and had an non-ST elevation myocardial infarction. Medical therapy was recommended. He underwent a stress test in June 2020 with abnormal EKG changes for which he underwent a cardiac catheterization. 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 He underwent PCI of his left anterior descending artery and developed a spiral dissection with thrombosis for which she underwent further drug-eluting stent placed to the LAD. He developed a V. fib arrest while he was in the hospital and was brought back to the cardiac catheterization lab and underwent relook evaluation his LAD was patent though the first diagonal vessel was jailed. He had developed torsade and underwent treatment for the above. He had an intra-aortic balloon pump placed and he was transferred to [facility] where he developed further torsades which was treated. In August of 2021 he was noted to be in atrial fibrillation he was scheduled to have a DC cardioversion but spontaneously converted to sinus rhythm. Pt was in the [facility] 04/21/2022 for Afib with RVR. He was discharged home later that that day after his rate had been controlled. He did remain in atrial fibrillation. The following week he felt more short of breath decided to go to [facility]. He was told that he had pneumonia and a pleural effusion. He did undergo a cardioversion there. 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 This was stopped. Because of this, he is being admitted for initial of sotalol. Pt has not had any cardiac symptoms. He has not had any palpitations that he is aware of. He does not have any chest pain, worsening SOB. He denies any near syncope/syncope. He does not have any fatigue. 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 Obesity RAULITO on CPAP Paroxysmal atrial fibrillation STEMI (ST elevation myocardial infarction) (07/01/20) Home Medications nitroglycerin 0.4 mg sublingual tablet 0.4 mg sublingual Q5-15M PRN Chest Pain 07/12/20 [History Last Taken Unknown] losartan 25 mg tablet See Rx Instructions .Route .COMPLEX bp #90 tabs 03/06/22 [Rx Last Taken 02/24/23] apixaban 5 mg tablet 5 mg PO BID anticoagulant #180 tabs 08/03/22 [Rx Last Taken 02/24/23] atorvastatin 40 mg tablet 40 mg PO QHS #90 tabs 08/03/22 [Rx Last Taken Unknown] carvedilol 25 mg tablet 25 mg PO BID BP #180 tabs 08/03/22 [Rx Last Taken 02/24/23] aspirin 81 mg tablet,delayed release (Adult Aspirin Regimen) 81 mg PO DAILY anticoagulant #1 TAB 08/04/22 [Rx Last Taken 02/24/23] Allergy/AdvReac Type Severity Reaction Status Date / Time lisinopril AdvReac Intermediate cough, Verified 02/04/23 08:47 nasal drainage Family History Mother Cancer Father Heart disease Surgical History (Updated 02/04/23 @ 09:00 by Ana DURAN, PA) History of cardioversion (05/05/22) History of coronary artery stent placement (07/01/20) History of left heart catheterization (07/01/20) History of right and left heart catheterization (07/02/20) Social History Smoking Status: Never smoker alcohol intake: current alcohol intake frequency: holidays/special occasions only substance use type: does not use caffeine: Yes Type: coffee Number of servings: 1 ROS Constitutional Constitutional: Denies change in weight, chills, fatigue, frequent falls, headache(s) or lethargy Eyes Eyes: Denies acute decrease in peripheral vision, blurry vision or change in vision ENT HEENT: Denies dizziness, dry mouth, epistaxis, headache(s), tinnitus or vertigo Cardiovascular Cardiovascular: Denies chest pain at rest, chest pain with activity, claudication, dyspnea at rest, dyspnea on exertion, edema, irregular heart rhythm, lightheadedness, orthopnea, orthostatic symptoms, palpitations or pedal edema Respiratory/Chest Respiratory/Chest: Denies cough, dyspnea, dyspnea on exertion, tachypnea or wheezing Gastrointestinal Gastrointestinal: Denies abdominal pain, bloating, coffee ground emesis, diarrhea, heartburn, hematemesis, hematochezia, melena or nausea Genitourinary Genitourinary: Denies hematuria Musculoskeletal Musculoskeletal: Denies myalgias, numbness or tingling Neurologic Neurologic: Denies abnormal gait, abnormal speech, memory loss, paresthesias or weakness Physical Exam Const alert, oriented x3, no apparent distress and healthy appearing HEENT normocephalic, head/scalp atraumatic, hearing grossly normal bilaterally, external ears normal, external nose normal and moist oral mucous membranes Eyes PERRL, EOMs intact bilaterally, conjunctivae normal and no scleral icterus Neck no lymphadenopathy, supple and no JVD Resp normal respiratory effort and clear to auscultation bilaterally Cardio regular rate, regular rhythm, S1 normal heart sound, S2 normal heart sound, no murmurs, no rub, no gallops, no clicks, no JVD and peripheral pulses 2+ throughout GI normal to inspection, nondistended, normoactive bowel sounds, soft to palpation, non-tender and non-distended Extremity normal to inspection, normal capillary refill, no clubbing, cyanosis or edema and no pedal edema Neuro oriented x3, CN's II-XII intact bilaterally, moves all extremities and no focal motor deficits Psych cooperative and affect normal Cardiology Labs/Tests Cardiology Labs/Tests: Cardioversion Report Date of Procedure: 01/23/21 Chronic persistent symptomatic atrial fibrillation. The patient was brought to the cardiac catheterization lab in the postabsorptive nonsedated state. The patient was seen by Dr. Gar of the critical care division. Informed consent was obtained. Anterior-posterior pads were applied. The patient was then administered 60 mg of intravenous propofol and then 200 J of synchronized biphasic DC cardioversion energy were applied with prompt reversal to sinus rhythm. Patient tolerated the procedure well. Postoperative EKG demonstrated normal sinus rhythm. Conclusion: Successful DC cardioversion from atrial fibrillation to sinus rhythm. We will follow up per office protocol. ECHOCARDIOGRAM 10/15/2020 Interpretation Summary Normal LV size. Left ventricular systolic function is normal. The estimated ejection fraction is 55 %. Grant : Hypokinetic. Stage 2 diastolic dysfunction. Contrast injection was performed. Right and Left Heart Catheterization 07/02/2020 IMPRESSIONS: 1. Widely patent overlapped stents of [id number] LAD with EMILY 3 distal flow. Diagonals 1 and 2 and large septal jailed by the stents, but all widely patent despite ostial disease of all 3 branches. 2. Patent small LCx/OM branch. RCA known to be widely patent from Ga cath and was not injected. 3. Elevated LVEDP of 30mm Hg. No . 4. Borderline elevated RA pressure and borderline pulmonary hypertension. 5. Normal function of IABP with 1:1 support; IABP repositioned about 4cm more proximally. ECHOCARDIOGRAM 07/02/2020 SUMMARY: 1. Left ventricle: The cavity size is normal. Wall thickness is normal. Systolic function is normal. The estimated ejection fraction is 55% with regional wall motion abnormalities in the distal LAD territory. 2. Right ventricle: Systolic function is normal. Right ventricular systolic pressure is within the normal range. 3. Aortic valve: Trileaflet. There is moderate regurgitation directed eccentrically in the LVOT, technically difficult and the mechanism is not well defined by the current echo study. Cardiac Cath Report 07/02/2020 Hemodynamics Anteroapical hypokinesia with ejection fraction in the range of around 40 to 45% No mitral regurgitation noted No systolic gradient across aortic valve. Coronary angiography findings; 1. Left main is patent, trifurcating into LAD, ramus intermedius and the left circumflex 2. LAD stent is patent, with some haziness noted in the proximal LAD, EMILY-3 flow noted in the LAD and no evidence of dissection noted 3. The ramus intermedius had a proximally calcified lesions with EMILY-3 flow in the ramus intermedius The left circumflex proximally had nonobstructive atherosclerosis Right: There is a large dominant. PCI Cardiac Cath Report 07/01/2020 PCI Report: Procedure performed Patient with ST?elevation myocardial infarction/acute anterior myocardial infarction With acute in-stent thrombosis and spinal dissection of the mid LAD. 1. Successful percutaneous coronary intervention/PCI of occluded mid LAD with the spiral dissection 2. Anterior ST elevation myocardial infarction with EMILY 0 flow in the LAD and occluded mid LAD 3. Successful PCI with placement of drug-eluting stent/synergy 2.5 x 38mm overlapping 2.5 x 32mm and overlap with a 2.5 x 16 mm Synergy to the distal LAD. Reduction of occluded mid LAD with EMILY 0 flow to 0% stenosis and EMILY-3 flow and still mid LAD spiral dissection is persistent However there is EMILY-3 flow no change in the electrocardiogram resolution of the ST segment elevation and also symptoms of chest pain resolved. Patient remained stable hemodynamically maintaining , blood pressure systolic of around 130 mmHg with no need for inotropic support or intra-aortic balloon pump. Procedure in detail;. 64-year-old patient, underwent PCI and stent of the proximal- mid LAD today using drug-eluting stent and was stable in the Small Business Banking Officer and transferred to the PCU He developed severe retrosternal chest pain with diaphoresis and change in the electrocardiogram with ST elevation noted in the anterior lead. Patient brought to the cardiac catheterization lab as an emergency. Access obtained from the right common femoral artery and placement 6 Iraqi sheath We , proceed with the guide catheter 6 Iraqi 3.5 EBU guide catheter engaged the left main and angiographic view obtained which clearly demonstrated the spiral dissection of the mid LAD and a occluded portion of the mid LAD Then will proceed with 0.014 run-through extra floppy 180 cm straight wire across the lesion in the mid LAD, then we proceed with a balloon dilatation using 2.5 mm balloon. Still there was a EMILY 0 flow in the mid LAD, will proceed with the multiple balloon inflations using the emerge MR 2.5 x 12mm balloon, this followed by placement of stent in the mid LAD 2.5 x 38 mm Synergy MR, overlapped with 2.5 x 32 mm Synergy and still there was a lesion noted in the distal mid to distal LAD nitroglycerin was given however seems there is a no evidence of dissection in that area however still persistent lesion requiring to stented with 2.5 x 60 mm Were able to achieve a EMILY-3 flow in the LAD Patient symptoms of chest pain resolved and ST segment elevation improved. Prior to that with the placement of the first stent patient went into V. fib was shocked with 200 followed by 300x2 amiodarone IV was given , 2.5 mg of Lopressor/beta-cresencio was given. Also be started on Integrilin infusion. The ACT level at this time after he was given the heparin is 312. And we kept him on low-dose nitroglycerin. Circumflex selective right common femoral artery radiograph obtained and a suture applied to right common femoral artery sheath. And placed for arterial line monitoring over the night. Assessment and plan; This patient developed acute in-stent thrombosis with a dissection of the proximal to mid LAD and presented with,severe retrosternal chest pain while in PCU with ST elevation noted in the anterior lead , Patient brought as an emergency to the Small Business Banking Officer underwent successful PCI with covering of the dissection area and achievement of EMILY-3 flow in the LAD and patient remained stable clinically. He will be monitored over the night on Integrilin infusion and also we will change the Plavix to Brilinta we will continue low-dose aspirin he will be seen and followed by Dr. Kitchen and also will follow up with him. I Explained the finding of cardiac catheterization to the patient and and patient will be treated with medical therapy. Heart Catheterization 07/01/2020 CORONARY ANGIOGRAPHY DOMINANCE: Right Dominant LEFT HEART ASSESSMENT Left Ventricular Ejection Fraction: by LV Gram 60 % Normal LV wall motion Normal Left Ventricular systolic function LEFT MAIN: Mild calcification, Non-obstructive LEFT ANTERIOR DESCENDING ARTERY: PROX LAD: 80 % Stenosis DIAGONAL 1: Proximal - Mild luminal irregularities SEPTAL: 80 % Stenosis CIRCUMFLEX ARTERY: Mild luminal irregularities RIGHT CORONARY ARTERY: Mild luminal irregularities less than 30% Left Heart Catheterization 04/04/2018 IMPRESSIONS: -Non-obstructive CAD of the proximal/mid LAD with an iFR of 0.94, angiographically appearing to be a 60-70% stenosis. -Obstructive CAD involving the ostium of the 1st Septal branch at 90% stenosis. -Coronary Vasospasm involving the mLAD which resolved with IC NTG. CORONARY ARTERIES: The coronary circulation is right dominant. The left main bifurcates normally into the LAD and circumflex. LAD: Proximal vessel lesion: There is a 60% stenosis. Mid-vessel lesion: There is a 50% stenosis. 1st septal: Lesion: There is a 90% stenosis. Right coronary: Minor luminal irregularities. LEFT VENTRICLE: Systolic function is normal. The estimated ejection fraction is 60-65%. Wall motion is normal; there are no regional wall motion abnormalities. Assessment & Plan Assessment/Plan (1) Paroxysmal atrial fibrillation: PLAN: Will initiate sotalol 80 mg twice daily. We will continue to monitor with routine EKGs. Patient will continue with his apixaban. (2) History of coronary artery stent placement: PLAN: Patient does not have any symptoms of angina. He will continue with his home medications of aspirin, losartan, and atorvastatin. (3) Essential hypertension: PLAN: Blood pressure has been controlled at home. He will continue with his losartan. (4) Hyperlipidemia: PLAN: Patient will continue with his home medication of atorvastatin. Charges/Coding Visit Charges Inpatient E&M: 12441 Init Hosp L3 Documented by User: Dr. Harsh Kitchen MD 02/24/23 09:51 HPI - General General Date of Admission: 02/24/23 [facility] Medical History (Updated 02/24/23 @ 08:05 by Ana Carr PA, PA) Atherosclerosis of coronary artery of [place] heart without angina pectoris Atrial fibrillation with RVR (04/27/20) Cardiac arrest with ventricular fibrillation Coronary artery spasm Essential hypertension History of non-ST elevation myocardial infarction (NSTEMI) (04/27/20) History of ST elevation myocardial infarction (STEMI) (07/02/20) History of torsades de pointes (07/01/20) Hyperlipidemia senior living current use of amiodarone Obesity RAULITO on CPAP Paroxysmal atrial fibrillation STEMI (ST elevation myocardial infarction) (07/01/20) Home Medications nitroglycerin 0.4 mg sublingual tablet 0.4 mg sublingual Q5-15M PRN Chest Pain 07/12/20 [History Last Taken Unknown] losartan 25 mg tablet See Rx Instructions .Route .COMPLEX bp #90 tabs 03/06/22 [Rx Last Taken 02/24/23] apixaban 5 mg tablet 5 mg PO BID anticoagulant #180 tabs 08/03/22 [Rx Last Taken 02/24/23] atorvastatin 40 mg tablet 40 mg PO QHS #90 tabs 08/03/22 [Rx Last Taken Unknown] carvedilol 25 mg tablet 25 mg PO BID BP #180 tabs 08/03/22 [Rx Last Taken 02/24/23] aspirin 81 mg tablet,delayed release (Adult Aspirin Regimen) 81 mg PO DAILY anticoagulant #1 TAB 08/04/22 [Rx Last Taken 02/24/23] Allergy/AdvReac Type Severity Reaction Status Date / Time lisinopril AdvReac Intermediate cough, Verified 02/04/23 08:47 nasal drainage Family History Mother Cancer Father Heart disease Surgical History (Updated 02/04/23 @ 09:00 by Ana DURAN, PA) History of cardioversion (05/05/22) History of coronary artery stent placement (07/01/20) History of left heart catheterization (07/01/20) History of right and left heart catheterization (07/02/20) Social History Smoking Status: Never smoker alcohol intake: current alcohol intake frequency: holidays/special occasions only substance use type: does not use caffeine: Yes Type: coffee Number of servings: 1 Assessment & Plan Assessment/Plan (1) Paroxysmal atrial fibrillation: (2) History of coronary artery stent placement: (3) Essential hypertension: (4) Hyperlipidemia:
[2023-02-24 09:32] VITALS: BMI 32.3
[2023-02-24 09:55] VITALS: BP 119/60; PULSE 67; RESP 18; TEMP 36.4; O2SAT 97
[2023-02-24] MEDS: 0.9% Saline Lock 10 ML Syringe IV (10:34)
[2023-02-24] MEDS: Sotalol Hydrochloride 80 MG Tablet PO ×2 (11:38→22:34)
--- NOTE | 2023-02-24 14:10 | EKG12_ITS ---
Test Reason : BETAPACE Blood Pressure : / mmHG Vent. Rate : 062 BPM Atrial Rate : 062 BPM P-R Int : 202 ms QRS Dur : 098 ms QT Int : 460 ms P-R-T Axes : 077 021 047 degrees QTc Int : 466 ms Normal sinus rhythm Normal ECG Confirmed by GA MACARIO, HARSH ([id number]), proposal editor BRAYAN MESA ([id number]) on 03/02/2023 10:11:46 AM Referred By: Harsh Kitchen Confirmed By:HARSH KITCHEN MD
[2023-02-24 15:40] VITALS: BP 118/81; PULSE 60; RESP 18; TEMP 36.2; O2SAT 95
[2023-02-24] MEDS: APIXABAN 5 MG TABLET PO (22:34)
[2023-02-24] MEDS: Atorvastatin Calcium 40 MG Tablet PO (22:34)
[2023-02-24 22:35] VITALS: BP 136/77; PULSE 70; RESP 16; TEMP 36.7; O2SAT 95
--- NOTE | 2023-02-25 00:30 | EKG12_ITS ---
Test Reason : SOTOLOL THERAPY Blood Pressure : / mmHG Vent. Rate : 067 BPM Atrial Rate : 067 BPM P-R Int : 168 ms QRS Dur : 100 ms QT Int : 450 ms P-R-T Axes : 061 032 037 degrees QTc Int : 475 ms Normal sinus rhythm Normal ECG Confirmed by GA MACARIO, HARSH ([id number]), video news editor BRAYAN MESA ([id number]) on 03/02/2023 10:08:43 AM Referred By: Harsh Kitchen Confirmed By:HARSH KITCHEN MD
--- NOTE | 2023-02-25 00:50 | NURSING ---
EKG post sotolol reviewed. no abnormalities. placed on chart for physician review in am. qtc 475
[2023-02-25 04:30] VITALS: BP 147/78; PULSE 66; RESP 18; TEMP 36.1; O2SAT 95
[2023-02-25 06:43] LABS: Absolute Lymphocyte Count 1.73 X10^3/uL (0.83-4.51); Absolute Neutrophil Count 4.8 X10^3/uL (2.0-7.7); Basophil# 0.08 X10^3/uL; Basophil% 1.1 % (0-1); Eosinophil# 0.18 X10^3/uL; Eosinophils% 2.5 % (0-5); Hematocrit 41.4 % (40-54); Hemoglobin 13.4 g/dL (13.0-16.5); Lymphocyte # 1.73 X10^3/ul (0.83-4.51); Lymphocyte % 23.6 % (19-41); Mean Corp Hgb Conc 32.4 g/dL (32-36); Mean Corpuscular Volume 98.8 fL (80-94); Monocyte# 0.48 X10^3/uL; Monocyte% 6.5 % (0-10); NRBC Flagged by Analyzer 0 % (0-5); Neutrophil # 4.78 X10^3/uL (2.7-7.7); Neutrophil % 65.1 % (47-70); Platelet Count 446 K/mm3 (150-450); RBC Distribution Width CV 12.4 % (11.6-14.6); RBC Distribution Width SD 44.5 fl (35.1-43.9); Red Blood Count 4.19 M/mm3 (4.6-6.2); White Blood Count 7.3 K/mm3 (4.4-11.0)
[2023-02-25 07:13] LABS: Anion Gap 4 (5-15); BUN 19 mg/dL (7-18); BUN/Creat Ratio 16.4 RATIO (10-20); Calcium,Total 8.9 mg/dL (8.5-10.1); Chloride 107 mmol/L (98-107); Creatinine, Serum 1.16 mg/dL (0.70-1.30); EST Glomerular Filtration Rate 66 mL/min (>60); Est Glom Filt Rate - Afr Amer 80 mL/min (>60); Estimated Creatinine Clearance 64.01 ml/min; Glucose 107 mg/dL (74-106); Magnesium 2.2 mg/dL (1.6-2.6); Potassium 4.1 mmol/L (3.5-5.1); Sodium Level 140 mmol/L (136-145)
--- NOTE | 2023-02-25 08:24 | PN.CARD_ITS ---
Subjective Subjective Patient seen and evaluated. Doing well. Undergoing sotalol loading. Objective Data Vital Signs: Vital Signs Temp Pulse Resp BP Pulse Ox O2 Del Method 97.0 F L 66 18 147/78 H 95 Room Air 02/25/23 04:30 02/25/23 04:30 02/25/23 04:30 02/25/23 04:30 02/25/23 04:30 02/25/23 08:15 Oxygen Delivery Method Room Air Weight: 231 lb 15.985 oz Body Mass Index (BMI) 32.3 Intake & Output: Intake and Output for Last 24 Hours 02/23/23 02/24/23 02/25/23 23:59 23:59 23:59 Intake Total 480 / 720 480 / 480 Balance 480 / 720 480 / 480 Lab / Micro Data 02/25/23 05:48 02/25/23 05:48 Labs: Laboratory Results - last 24 hr 02/25/23 05:48: WBC 7.3, RBC 4.19 L, Hgb 13.4, Hct 41.4, MCV 98.8 H, MCH 32.0, MCHC 32.4, RDW Std Deviation 44.5 H, RDW Coeff of Calista 12.4, Plt Count 446, MPV 9.0, Immature Gran % (Auto) 1.200 H, Neut % (Auto) 65.1, Lymph % (Auto) 23.6, [place] % (Auto) 6.5, Eos % (Auto) 2.5, Baso % (Auto) 1.1 H, Absolute Neuts (auto) 4.8, Absolute Lymphs (auto) 1.73, Nucleated RBC % 0, Sodium 140, Potassium 4.1, Chloride 107, Carbon Dioxide 29.0, Anion Gap 4 L, BUN 19 H, Creatinine 1.16, Estim Creat Clear Calc 64.01, Est GFR (MDRD) Af Amer 80, Est GFR (MDRD) Non-Af 66, BUN/Creatinine Ratio 16.4, Glucose 107 H, Calcium 8.9, Magnesium 2.2 Cardiology Labs/Tests 02/25/23 05:48: WBC 7.3, RBC 4.19 L, Hgb 13.4, Hct 41.4, MCV 98.8 H, MCH 32.0, MCHC 32.4, Plt Count 446, MPV 9.0, Immature Gran % (Auto) 1.200 H, Neut % (Auto) 65.1, Lymph % (Auto) 23.6, [place] % (Auto) 6.5, Eos % (Auto) 2.5, Baso % (Auto) 1.1 H, Absolute Neuts (auto) 4.8, Nucleated RBC % 0, Sodium 140, Potassium 4.1, Chloride 107, Carbon Dioxide 29.0, Anion Gap 4 L, BUN 19 H, Creatinine 1.16, Est GFR (MDRD) Af Amer 80, Est GFR (MDRD) Non-Af 66, BUN/Creatinine Ratio 16.4, Glucose 107 H, Calcium 8.9, Magnesium 2.2 Rhythm: EKG: ECHO: Stress Test: Cardiac Cath: PCI: CT Surgery: Holter monitor: EPS: PPM: CXR: Chest CT Scan: Physical Exam Const alert, oriented x3, no apparent distress and healthy appearing HEENT normocephalic, head/scalp atraumatic, hearing grossly normal bilaterally, external ears normal, external nose normal and moist oral mucous membranes Eyes PERRL, EOMs intact bilaterally, conjunctivae normal and no scleral icterus Neck no lymphadenopathy, supple and no JVD Resp normal respiratory effort and clear to auscultation bilaterally Cardio regular rate, regular rhythm, S1 normal heart sound, S2 normal heart sound, no murmurs, no rub, no gallops, no clicks, no JVD and peripheral pulses 2+ throughout GI normal to inspection, nondistended, normoactive bowel sounds, soft to palpation, non-tender and non-distended Extremity normal to inspection, normal capillary refill, no clubbing, cyanosis or edema and no pedal edema Neuro oriented x3, CN's II-XII intact bilaterally, moves all extremities and no focal motor deficits Psych cooperative and affect normal Assessment & Plan Assessment/Plan (1) Paroxysmal atrial fibrillation: PLAN: * Will initiate sotalol 80 mg twice daily. We will continue to monitor with routine EKGs. Patient will continue with his apixaban. EKG today demonstrates acceptable QT interval. (2) History of coronary artery stent placement: PLAN: * Patient does not have any symptoms of angina. He will continue with his home medications of aspirin, losartan, and atorvastatin. (3) Essential hypertension: PLAN: * Blood pressure has been controlled at home. He will continue with his losartan. (4) Hyperlipidemia: PLAN: * Patient will continue with his home medication of atorvastatin.
[2023-02-25 08:33] VITALS: BP 135/73; PULSE 67; RESP 14; TEMP 36.7; O2SAT 94
[2023-02-25] MEDS: Losartan Potassium 25 MG Tablet PO (08:39)
[2023-02-25] MEDS: APIXABAN 5 MG TABLET PO ×2 (08:39→22:39)
[2023-02-25] MEDS: Aspirin E.C. 81 MG Tablet PO (08:39)
[2023-02-25] MEDS: Sotalol Hydrochloride 80 MG Tablet PO ×2 (09:22→21:18)
--- NOTE | 2023-02-25 11:23 | EKG12_ITS ---
Test Reason : MEDS GIVEN Blood Pressure : / mmHG Vent. Rate : 060 BPM Atrial Rate : 060 BPM P-R Int : 198 ms QRS Dur : 086 ms QT Int : 442 ms P-R-T Axes : 069 029 049 degrees QTc Int : 442 ms Normal sinus rhythm Normal ECG Confirmed by GA MACARIO, HARSH ([id number]), managing editor BRAYAN MESA ([id number]) on 03/02/2023 9:56:39 AM Referred By: Harsh Kitchen Confirmed By:HARSH KITCHEN MD
--- NOTE | 2023-02-25 14:05 | CASEMGMT ---
Social Work SW introduced self and role to patient. SW reviewed chart previously and patient had reported having advance directives and , Marcia Cordova, as HCPOA. SW followed up with patient which confirmed that he has completed advance directives paperwork. Pt reports his will be coming in later today or tomorrow and he will ask her to bring them for out records. Pt thanked SW and denied any other needs at this time. Whit Phelps SECTION CHIEF, DEPARTMENT [employer]
--- NOTE | 2023-02-25 14:20 | CASEMGMT ---
RN?CM?SITE PROMOTION AGENT?CM?to room to meet with patient for initial transition planning/care coordination?assessment.?RN?CM?introduced self and role at [facility].? Pt voices understanding and consents to?assessment?at this time.? Pt sitting up in chair in room in no distress at this time.? Pt is A/O at this time and answers all questions appropriately.?? Care providers, pharmacy, and demographics verified/updated at this time. PCP: Dr River Cho Specialists: [facility]/cardiology [facility], M[facility] Prescription Benefit:?Pt states he thinks he has Rx benefits, but he is not certain. LNOK: , Marcia. Shawna BECERRA Living Arrangements: Lives w/ in 1 05/04 story home w/no no steps to enter. Independent. Transportation:?Pt states drives self and states no transportation concerns at this time.? also drives. DME: ? States has the following DME:?CPAP thru [facility], pulse ox. ?Pt states no need for further DME at this time.? HHC/SNF: No hx of either. No needs identified. Pt wishes to return home and states has no concerns with going home at time of discharge.? CM?to follow for any discharge planning/needs.? Pt voices no concerns/needs at this time.? Advised pt to ask for?CM?if any questions/concerns/needs arise.? Voices understanding. PLAN:??Home Sima BSN?RN?CM
[2023-02-25 15:01] VITALS: BP 116/71; PULSE 63; RESP 14; TEMP 36.6; O2SAT 93
[2023-02-25] MEDS: Atorvastatin Calcium 40 MG Tablet PO (22:39)
--- NOTE | 2023-02-25 23:18 | EKG12_ITS ---
Test Reason : Blood Pressure : / mmHG Vent. Rate : 062 BPM Atrial Rate : 062 BPM P-R Int : 188 ms QRS Dur : 082 ms QT Int : 450 ms P-R-T Axes : 053 039 038 degrees QTc Int : 456 ms Normal sinus rhythm Nonspecific ST and T wave abnormality Abnormal ECG When compared with ECG of 26-FEB-2023 00:03, MANUAL COMPARISON REQUIRED, DATA IS UNCONFIRMED Confirmed by BELKYS MACARIO, JOHN ([id number]), editorial writer DAVID SANCHEZ ([id number]) on 03/15/2023 11:14:30 AM Referred By: Harsh Kitchen Confirmed By:JOSE F RIZVI MD
[2023-02-25 23:50] VITALS: BP 140/73; PULSE 68; RESP 16; TEMP 36.8; O2SAT 94
[2023-02-26 05:57] VITALS: BP 153/73; PULSE 67; PULSE 68; RESP 16; TEMP 36.6; O2SAT 94; O2SAT 95
[2023-02-26] MEDS: Sotalol Hydrochloride 80 MG Tablet PO (09:28)
[2023-02-26] MEDS: Aspirin E.C. 81 MG Tablet PO (09:28)
[2023-02-26] MEDS: Losartan Potassium 25 MG Tablet PO (09:28)
[2023-02-26] MEDS: APIXABAN 5 MG TABLET PO (09:29)
[2023-02-26 09:31] VITALS: BP 130/74; PULSE 69; RESP 16; TEMP 36.7; O2SAT 98
--- NOTE | 2023-02-26 12:00 | EKG12_ITS ---
Test Reason : TIMED EKG Blood Pressure : / mmHG Vent. Rate : 067 BPM Atrial Rate : 067 BPM P-R Int : 204 ms QRS Dur : 100 ms QT Int : 470 ms P-R-T Axes : 069 030 039 degrees QTc Int : 496 ms Normal sinus rhythm Prolonged QT Abnormal ECG Confirmed by GA MACARIO, HARSH ([id number]), photograph editor BRAYAN MESA ([id number]) on 03/02/2023 9:54:40 AM Referred By: Harsh Kitchen Confirmed By:HARSH KITCHEN MD
[2023-02-26 15:30] VITALS: BP 115/76; PULSE 67; RESP 12; TEMP 36.7; O2SAT 100
--- NOTE | 2023-02-26 15:54 | PN.CARD_ITS ---
Subjective Subjective Patient seen and evaluated. Appears to be doing well. Objective Data Vital Signs: Vital Signs Temp Pulse Resp BP Pulse Ox O2 Del Method 98.0 F 69 16 130/74 H 98 Room Air 02/26/23 09:31 02/26/23 09:31 02/26/23 09:31 02/26/23 09:31 02/26/23 09:31 02/26/23 09:31 Oxygen Delivery Method Room Air Weight: 231 lb 15.985 oz Body Mass Index (BMI) 32.3 Intake & Output: Intake and Output for Last 24 Hours 02/24/23 02/25/23 02/26/23 23:59 23:59 23:59 Intake Total 480 / 720 1850 / 2450 600 / 600 Balance 480 / 720 1850 / 2450 600 / 600 Lab / Micro Data 02/25/23 05:48 02/25/23 05:48 Cardiology Labs/Tests Rhythm: EKG: ECHO: Stress Test: Cardiac Cath: PCI: CT Surgery: Holter monitor: EPS: PPM: CXR: Chest CT Scan: Physical Exam Const alert, oriented x3, no apparent distress and healthy appearing HEENT normocephalic, head/scalp atraumatic, hearing grossly normal bilaterally, external ears normal, external nose normal and moist oral mucous membranes Eyes PERRL, EOMs intact bilaterally, conjunctivae normal and no scleral icterus Neck no lymphadenopathy, supple and no JVD Resp normal respiratory effort and clear to auscultation bilaterally Cardio regular rate, regular rhythm, S1 normal heart sound, S2 normal heart sound, no murmurs, no rub, no gallops, no clicks, no JVD and peripheral pulses 2+ throu ghout GI normal to inspection, nondistended, normoactive bowel sounds, soft to palpation, non-tender and non-distended Extremity normal to inspection, normal capillary refill, no clubbing, cyanosis or edema and no pedal edema Neuro oriented x3, CN's II-XII intact bilaterally, moves all extremities and no focal motor deficits Psych cooperative and affect normal Assessment & Plan Assessment/Plan (1) Paroxysmal atrial fibrillation: PLAN: * Will continue sotalol 80 mg twice daily. We will continue to monitor with routine EKGs. Patient will continue with his apixaban. EKG today demonstrates acceptable QT interval. He has received 5 doses and at this time will discharge for outpatient follow-up. (2) History of coronary artery stent placement: PLAN: * Patient does not have any symptoms of angina. He will continue with his home medications of aspirin, losartan, and atorvastatin. (3) Essential hypertension: PLAN: * Blood pressure has been controlled at home. He will continue with his losartan. (4) Hyperlipidemia: PLAN: * Patient will continue with his home medication of atorvastatin.
--- NOTE | 2023-02-26 16:14 | DCINST_ITS ---
Discharge Instructions Diet Discharge Diet: 2000 Calorie Control Diet Activity Discharge Activity: Return to Normal Activity Follow Up Care When: [facility]. Test Results: Test results from this visit will be discussed in further detail at your follow- up appointment, if applicable. Discharge Plan Admission Admit Date/Time: 02/24/23 08:31 Attending Provider: Harsh Kitchen Primary Care Provider: River Cho Discharge Orders/Prescriptions Prescriptions: New sotalol 80 mg Tablet 80 mg PO BID Qty: 120 3RF Continued nitroglycerin 0.4 mg tablet, sublingual 0.4 mg SL Q5-15M PRN (Reason: Chest Pain) atorvastatin 40 mg tablet 40 mg PO QHS Qty: 90 3RF aspirin [Adult Aspirin Regimen] 81 mg tablet,delayed release (DR/EC) 81 mg PO DAILY Qty: 1 0RF losartan 25 mg tablet See Rx Instructions .ROUTE .COMPLEX Qty: 90 3RF Dose Instruction: TAKE 1 TABLET BY MOUTH EVERY DAY Rx Instructions: TAKE 1 TABLET BY MOUTH EVERY DAY apixaban 5 mg tablet 5 mg PO BID Qty: 180 3RF Discontinued carvedilol 25 mg tablet 25 mg PO BID Qty: 180 3RF Referrals / Follow Up: River Cho MD [Primary Care Provider] - Disposition Disposition (needs filled in before D/C Order can be placed): Home, Self Care
== END 2023-02-26 16:22 | disposition home or self-care (01) | DRG 310 ==
PROVIDERS: Admitting Provider Internal Medicine Cardiovascular Disease; PCP Family Medicine; Referring Provider Internal Medicine Cardiovascular Disease; Visit Provider Internal Medicine Cardiovascular Disease
DX: I48.0 Paroxysmal atrial fibrillation (principal); E78.5 Hyperlipidemia, unspecified; Z86.74 Personal history of sudden cardiac arrest; I10 Essential (primary) hypertension; I25.10 Atherosclerotic heart disease of native coronary artery without angina pectoris; I25.2 Old myocardial infarction; Z95.5 Presence of coronary angioplasty implant and graft; Z79.01 Long term (current) use of anticoagulants; Z79.82 Long term (current) use of aspirin; Z79.899 Other long term (current) drug therapy
CPT/HCPCS: 36415; 80048; 83735; 85025; 93005; 97802; A4216

== ENCOUNTER 2023-11-10 02:38 | Emergency (ER) | payer MEDICARE, OTHER, SELFPAY ==
[2021-10-29 10:17] VITALS: BMI 33.0
[2023-11-10] VITALS (17 sets, daily range): BP systolic 97–130; BP diastolic 43–90; PULSE 54–143; RESP 14–24; TEMP 36.6–36.8; O2SAT 92–99; BMI 33.2
--- NOTE | 2023-11-10 02:56 | RAD_ITS ---
EXAM: XR CHEST, 1 VIEW CLINICAL INDICATION: chest pain TECHNIQUE: Frontal view of the chest. COMPARISON: Single view chest 04/21/2022 FINDINGS: LUNGS AND PLEURAL SPACES: Unremarkable. No consolidation or edema. No pneumothorax. No effusion. HEART: Unremarkable. Cardiac silhouette not enlarged. MEDIASTINUM: Central airways and mediastinal contour are unremarkable. BONES/JOINTS: Unremarkable. No acute fracture. SOFT TISSUES: Unremarkable. RAD/Chest 1 View (Portable) IMPRESSION: No radiographic evidence of acute cardiopulmonary disease. Electronically Signed: Kameron Craig MD at 3:43 EDT ,
--- NOTE | 2023-11-10 02:56 | EKG12_ITS ---
Test Reason : CP Blood Pressure : / mmHG Vent. Rate : 125 BPM Atrial Rate : 000 BPM P-R Int : 000 ms QRS Dur : 100 ms QT Int : 340 ms P-R-T Axes : 000 031 -89 degrees QTc Int : 490 ms Atrial fibrillation with rapid ventricular response with premature ventricular or aberrantly conducte d complexes ST & T wave abnormality, consider inferior ischemia Abnormal ECG Confirmed by BELKYS MACARIO, JOHN ([id number]), material expeditor DAVID SANCHEZ ([id number]) on 11/17/2023 10:24:27 A M Referred By: PAOLA Confirmed By:JOSE F RIZVI MD
[2023-11-10 03:09] LABS: Absolute Lymphocyte Count 2.47 X10^3/uL (0.83-4.51); Absolute Neutrophil Count 3.1 X10^3/uL (2.0-7.7); Basophil# 0.06 X10^3/uL; Basophil% 0.9 % (0-1); Eosinophil# 0.33 X10^3/uL; Eosinophils% 5.1 % (0-5); Hematocrit 43.1 % (40-54); Hemoglobin 15.6 g/dL (13.0-16.5); Lymphocyte # 2.47 X10^3/ul (0.83-4.51); Lymphocyte % 37.9 % (19-41); Mean Corp Hgb Conc 36.2 g/dL (32-36); Mean Corpuscular Hgb 33.4 pg (27.0-32.0); Mean Corpuscular Volume 92.3 fL (80-94); Monocyte# 0.49 X10^3/uL; Monocyte% 7.5 % (0-10); NRBC Flagged by Analyzer 0 % (0-5); Neutrophil # 3.14 X10^3/uL (2.7-7.7); Neutrophil % 48.3 % (47-70); Platelet Count 205 K/mm3 (150-450); RBC Distribution Width CV 12.6 % (11.6-14.6); Red Blood Count 4.67 M/mm3 (4.6-6.2); White Blood Count 6.5 K/mm3 (4.4-11.0)
[2023-11-10] MEDS: 0.9% Normal Saline (1000mL) 1,000 ML 999 ML IV ×2 (03:10→08:17)
[2023-11-10] MEDS: Metoprolol Tartrate 5 MG/5 ML Vial IV ×3 (03:10→03:34)
[2023-11-10 03:29] LABS: Anion Gap 10 (5-15); BUN 27 mg/dL (7-18); BUN/Creat Ratio 26.2 RATIO (10-20); Calcium,Total 9.3 mg/dL (8.5-10.1); Chloride 108 mmol/L (98-107); Creatinine, Serum 1.03 mg/dL (0.70-1.30); EST Glomerular Filtration Rate 76 mL/min (>60); Est Glom Filt Rate - Afr Amer 92 mL/min (>60); Estimated Creatinine Clearance 84.65 ml/min; Glucose 113 mg/dL (74-106); Magnesium 1.7 mg/dL (1.6-2.6); Potassium 3.5 mmol/L (3.5-5.1); Sodium Level 140 mmol/L (136-145); Troponin-I HS 8 pg/mL (3.0-78.0)
[2023-11-10] MEDS: Digoxin 250 MCG/ML Ampul 500 MCG IV (04:21)
[2023-11-10] MEDS: dilTIAZem 25 MG/5 ML Vial 10 MG IV BOLUS (04:29)
[2023-11-10 05:35] LABS: Troponin-I HS 27 pg/mL (3.0-78.0)
[2023-11-10] MEDS: dilTIAZem 25 MG/5 ML Vial 20 MG IV BOLUS (05:48)
--- NOTE | 2023-11-10 06:15 | EX.ED.DYSGE1 ---
HPI History of Present Illness Chief Complaint: Chest Pain Informant: patient and spouse/S.O. Narrative Narrative: Patient is a 67-year-old male with history of paroxysmal atrial fibrillation currently on Eliquis as well as hypertension and CAD with previous stent placement in 2020. He states he has been doing well and taking his medication as directed. However he awoke this morning around 2 AM and noticed chest discomfort. He states that initially felt similar to heartburn but then became more dull and he noticed some shortness of breath associated with it. With concern that this was a cardiac event he comes to the hospital for evaluation. 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4 mg sublingual 0.4 mg sublingual Q5-15M PRN Chest 07/12/20 Unknown History tablet Pain apixaban 5 mg tablet 5 mg PO BID anticoagulant #180 tabs 08/03/22 02/24/23 Rx atorvastatin 40 mg tablet 40 mg PO QHS #90 tabs 08/03/22 02/23/23 Rx aspirin 81 mg tablet,delayed 81 mg PO DAILY anticoagulant #1 TAB 08/04/22 02/24/23 Rx release (Adult Aspirin Regimen) losartan 25 mg tablet See Rx Instructions .Route 04/09/23 Unknown Rx .COMPLEX bp #90 tabs sotalol 80 mg tablet 80 mg PO BID #180 TABLETS 11/03/23 Unknown Rx Allergy/AdvReac Type Severity Reaction Status Date / Time lisinopril AdvReac Intermediate cough, Verified 02/04/23 08:47 nasal drainage Family History Mother Cancer Father Heart disease Surgical History History of right and left heart catheterization (07/02/20) History of coronary artery stent placement (07/01/20) History of left heart catheterization (07/01/20) History of cardioversion (05/05/22) Social History Smoking Status: Never smoker alcohol intake: current alcohol intake frequency: holidays/special occasions only substance use type: does not use caffeine: Yes Type: coffee Number of servings: 1 ROS ROS ED Constitutional Constitutional ED: Denies chills or fever(s) Eyes Eyes: Denies change in vision ENT ENT ED: Denies sore throat Cardiovascular Cardiovascular: Reports chest pain, palpitations and racing heartbeat Respiratory/Chest Respiratory/Chest: Reports dyspnea; Denies cough Gastrointestinal Gastrointestinal: Denies abdominal pain, diarrhea, nausea or vomiting Genitourinary Genitourinary ED: Denies dysuria Musculoskeletal Musculoskeletal: Denies back pain or myalgias Integumentary Denies rash Neurologic Neurologic: Denies headache(s) Hematologic/Lymphatic Hematologic/Lymphatic: Reports easy bleeding and easy bruising EXAM Physical Exam Const Vital Signs: 11/10/23 02:41 11/10/23 03:17 11/10/23 03:23 Temperature 98.2 F Temperature Source Oral Pulse Rate 143 H 137 H 129 H Pulse Rate [1 (Initial Baseline)] Pulse Rate [3] Pulse Rate [5] Respiratory Rate 24 H 15 16 Respiratory Rate [1 (Initial Baseline)] Respiratory Rate [3] Respiratory Rate [5] Blood Pressure 114/90 H 105/77 130/43 H Blood Pressure [1 (Initial Baseline)] Blood Pressure [3] Blood Pressure [5] Blood Pressure Mean 98 86 72 Pulse Ox 95 98 92 Oxygen Delivery Method Room Air Room Air Room Air Oxygen Delivery Method [1 (Initial Baseline)] Oxygen Delivery Method [3] Oxygen Delivery Method [5] Oxygen Flow Rate (L/min) Oxygen Flow Rate (L/min) [1 (Initial Baseline)] Oxygen Flow Rate (L/min) [3] Oxygen Flow Rate (L/min) [5] 11/10/23 03:30 11/10/23 03:38 11/10/23 04:00 Temperature Temperature Source Pulse Rate 137 H 122 H 138 H Pulse Rate [1 (Initial Baseline)] Pulse Rate [3] Pulse Rate [5] Respiratory Rate 19 H 15 14 Respiratory Rate [1 (Initial Baseline)] Respiratory Rate [3] Respiratory Rate [5] Blood Pressure 105/60 111/63 100/64 Blood Pressure [1 (Initial Baseline)] Blood Pressure [3] Blood Pressure [5] Blood Pressure Mean 75 79 76 Pulse Ox 97 99 94 Oxygen Delivery Method Room Air Room Air Room Air Oxygen Delivery Method [1 (Initial Baseline)] Oxygen Delivery Method [3] Oxygen Delivery Method [5] Oxygen Flow Rate (L/min) Oxygen Flow Rate (L/min) [1 (Initial Baseline)] Oxygen Flow Rate (L/min) [3] Oxygen Flow Rate (L/min) [5] 11/10/23 04:24 11/10/23 05:00 11/10/23 05:51 Temperature Temperature Source Pulse Rate 111 H 101 H 103 H Pulse Rate [1 (Initial Baseline)] Pulse Rate [3] Pulse Rate [5] Respiratory Rate 16 19 H 17 Respiratory Rate [1 (Initial Baseline)] Respiratory Rate [3] Respiratory Rate [5] Blood Pressure 104/69 110/78 101/70 Blood Pressure [1 (Initial Baseline)] Blood Pressure [3] Blood Pressure [5] Blood Pressure Mean 80 88 80 Pulse Ox 96 99 94 Oxygen Delivery Method Room Air Room Air Room Air Oxygen Delivery Method [1 (Initial Baseline)] Oxygen Delivery Method [3] Oxygen Delivery Method [5] Oxygen Flow Rate (L/min) Oxygen Flow Rate (L/min) [1 (Initial Baseline)] Oxygen Flow Rate (L/min) [3] Oxygen Flow Rate (L/min) [5] 11/10/23 07:00 11/10/23 07:52 11/10/23 07:52 Temperature Temperature Source Pulse Rate 93 93 Pulse Rate [1 (Initial Baseline)] 93 Pulse Rate [3] 96 Pulse Rate [5] 54 L Respiratory Rate 15 18 Respiratory Rate [1 (Initial Baseline)] 18 Respiratory Rate [3] 16 Respiratory Rate [5] 17 Blood Pressure 103/66 119/60 Blood Pressure [1 (Initial Baseline)] 119/60 Blood Pressure [3] 119/65 Blood Pressure [5] 111/63 Blood Pressure Mean 78 Pulse Ox 96 98 Oxygen Delivery Method Room Air Nasal Cannula Oxygen Delivery Method [1 (Initial Baseline)] Nasal Cannula Oxygen Delivery Method [3] Nasal Cannula Oxygen Delivery Method [5] Nasal Cannula Oxygen Flow Rate (L/min) 4 Oxygen Flow Rate (L/min) [1 (Initial Baseline)] 4 Oxygen Flow Rate (L/min) [3] 4 Oxygen Flow Rate (L/min) [5] 4 Positive well nourished and well developed General Appearance ED: well developed; Negative for pallor HEENT HEENT Narrative: Normocephalic atraumatic Eyes PERRL and EOMs intact bilaterally General Eye ED: Negative for scleral icterus Neck supple and no JVD Chest Wall palpation of chest normal Chest Narrative: No bony deformity or crepitance Resp clear to auscultation bilaterally Resp Narrative: Patient has slight tachypnea but otherwise no nasal flaring retractions or accessory muscle use and breath sounds are clear throughout Cardio Rate: other Other Details: Irregularly irregular rhythm with tachycardic rate consistent with history of A-fib with RVR GI normal to inspection, nondistended, normoactive bowel sounds, non-tender, non-distended and no masses GI Narrative: No voluntary guarding or rigidity or pulsatile mass Auscultation: normoactive bowel sounds Palpation: soft Extremity normal to inspection Extremity Narrative: No asymmetric edema no pitting edema negative Homans' sign bilaterally Neuro oriented x3, CN's II-XII intact bilaterally and no sensory deficits noted Sensorium / Orientation: alert Motor Exam: strength 5/5 throughout Psych mental status grossly normal Skin no rashes or lesions noted General Skin Exam: Negative for jaundice or pallor MDM MDM MDM Narrative Medical decision making narrative: Patient arrived to the ER in atrial fibrillation with rapid ventricular response at approximate 140 to 160 bpm. He has a known history of CAD and reported midsternal chest discomfort. Differential diagnosis is for acute coronary syndrome versus chest discomfort from A-fib with RVR versus congestive heart failure versus electrolyte abnormality versus pneumonia or pneumothorax. Secondary to this a chest x-ray was obtained which revealed no acute lung pathology. EKG showed A-fib with RVR without acute SC changes. Patient blood work revealed no clinically significant electrolyte abnormality or blood loss. His initial troponin was 8 and his delta did increase to 27 but this is most likely related to the prolonged elevated heart rate. As the patient's heart rate was improved in the ER with Lopressor digoxin and Cardizem he did report resolution of symptoms. The case was discussed with cardiology on-call Dr. Petty. He recommends as the patient is typically in sinus rhythm that he have a dose of his sotalol this morning but increased to 120 mg instead of 80. He recommends the watch for 1 hour to see if he spontaneous converts but also perform an EKG at approximately 1 hour tommie to ensure he is not have prolongation to his QTc. This plan of care was discussed with the patient and and they are agreeable to it and he does admit to being chest pain-free at this time with improvement of his heart rate down into the 80s Repeat EKG after sotalol dose shows an irregularly irregular rhythm at a slightly tachycardic rate of 103 with no acute current of injury change noted. QTc is 492. The patient was evaluated in the ER by director of religious life Dr. Petty. After providing the increased dose of sotalol without conversion he recommends the patient be cardioverted at this time Patient received a total of 50 mg of of IV propofol and following this he underwent synchronized cardioversion at 100 J. He converted to normal sinus rhythm but approximately 30 seconds later went back in A-fib with RVR. Therefore he had his joules increased to 150 and synchronized cardioversion was performed once again. Following this he converted to normal sinus rhythm and remained in that normal rhythm which was confirmed by twelve-lead EKG. total conscious sedation time of approximately 10 minutes History & Record Review Discussion w/independent historian: Patient and Family Lab Data Attestation: I reviewed the patient's lab results. Labs: Laboratory Results - last 24 hr 11/10/23 11/10/23 02:51 04:54 WBC 6.5 RBC 4.67 Hgb 15.6 Hct 43.1 MCV 92.3 MCH 33.4 H MCHC 36.2 H RDW Std Deviation 43.0 RDW Coeff of Calista 12.6 Plt Count 205 MPV 10.0 Immature Gran % (Auto) 0.300 Neut % (Auto) 48.3 Lymph % (Auto) 37.9 [place] % (Auto) 7.5 Eos % (Auto) 5.1 H Baso % (Auto) 0.9 Absolute Neuts (auto) 3.1 Absolute Lymphs (auto) 2.47 Nucleated RBC % 0 Sodium 140 Potassium 3.5 Chloride 108 H Carbon Dioxide 22.0 Anion Gap 10 BUN 27 H Creatinine 1.03 Estim Creat Clear Calc 84.65 Est GFR (MDRD) Af Amer 92 Est GFR (MDRD) Non-Af 76 BUN/Creatinine Ratio 26.2 H Glucose 113 H Calcium 9.3 Magnesium 1.7 Troponin I High Sens 8 27 Radiography Diagnostic Testing: Clinical Impression(s) from Imaging Studies Chest X-Ray 11/10/23 02:56 IMPRESSION: No radiographic evidence of acute cardiopulmonary disease. Electronically Signed: Kameron Craig MD at 3:43 EDT , Chest x-ray as interpreted by the emergency medicine physician reveals no acute infiltrate pneumothorax or pleural effusion Management Discussion w/another healthcare provider: Coder Operator Procedures Procedural Sedation 1 (Initial Baseline): Consent Signed: Yes Any Problems With Anesthesia: No You/Your family experience fever (hyperthermia) w/anesthesia: No Sedation medication: Propofol Dose: 50 Route: IV Maliampati Score: Class II ASA Classification: II Critical Care Time Critical Care Time: Yes Critical care time (excluding procedures): Discussing w/Patient &/or Family/Professor Of Biochemistry, Discussing w/Consultants, Performing Direct Patient Care at Bedside and - (Please note critical care time of 33 minutes) Discharge Plan Triage Chief Complaint: Chest Pain ED Provider: Rodrigo Leblanc Dx/Rx/DC Orders Clinical Impression: Essential hypertension, Atrial fibrillation with rapid ventricular response, Current use of [facility] anticoagulation Instructions: AFib Prescriptions: No Action nitroglycerin 0.4 mg tablet, sublingual 0.4 mg SL Q5-15M PRN (Reason: Chest Pain) atorvastatin 40 mg tablet 40 mg PO QHS Qty: 90 3RF aspirin [Adult Aspirin Regimen] 81 mg tablet,delayed release (DR/EC) 81 mg PO DAILY Qty: 1 0RF apixaban 5 mg tablet 5 mg PO BID Qty: 180 3RF losartan 25 mg tablet See Rx Instructions .ROUTE .COMPLEX Qty: 90 3RF Dose Instruction: TAKE 1 TABLET BY MOUTH EVERY DAY Rx Instructions: TAKE 1 TABLET BY MOUTH EVERY DAY sotalol 80 mg tablet 80 mg PO BID Qty: 180 3RF Primary Care Provider: River Cho Referrals: Harsh Kitchen MD [Med Staff - Active Staff] - River Cho MD [Primary Care Provider] - Activity Restrictions/Additional Instructions: Please follow-up with your director of religious life for repeat evaluation. You were given sotalol and Eliquis this morning and therefore you do not need to take those medications when you return home. Please continue your sotalol at 80 mg twice a day as you were cardioverted there is no need to increase your dose. Please continue all of your other medications as directed by your doctor and return to the ER should you have any further concerns or worsening of symptoms Print Language: [place] Disposition Disposition: Home, Self Care
[2023-11-10] MEDS: Sotalol Hydrochloride 80 MG Tablet 120 MG PO (06:27)
--- NOTE | 2023-11-10 07:22 | EKG12_ITS ---
Test Reason : REPEAT Blood Pressure : / mmHG Vent. Rate : 103 BPM Atrial Rate : 000 BPM P-R Int : 000 ms QRS Dur : 094 ms QT Int : 376 ms P-R-T Axes : 000 001 -40 degrees QTc Int : 492 ms Atrial fibrillation with rapid ventricular response Nonspecific T wave abnormality Abnormal ECG Confirmed by BELKYS MACARIO, JOHN ([id number]), web editor DAVID SANCHEZ ([id number]) on 11/17/2023 10:25:25 A M Referred By: Confirmed By:JOSE F RIZVI MD
--- NOTE | 2023-11-10 08:03 | EKG12_ITS ---
Test Reason : POST CARDIOVERT Blood Pressure : / mmHG Vent. Rate : 054 BPM Atrial Rate : 054 BPM P-R Int : 182 ms QRS Dur : 096 ms QT Int : 450 ms P-R-T Axes : 021 019 -23 degrees QTc Int : 426 ms Sinus bradycardia with marked sinus arrhythmia Nonspecific T wave abnormality Abnormal ECG Confirmed by BELKYS MACARIO, JOHN ([id number]), editorial writer DAVID SANCHEZ ([id number]) on 11/17/2023 10:25:41 A M Referred By: Confirmed By:JOSE F RIZVI MD
--- NOTE | 2023-11-10 08:07 | PCM.CONS.C ---
Assessment & Plan Assessment/Plan (1) Atrial fibrillation with rapid ventricular response: PLAN: Patient presented with atrial fibrillation with rapid ventricular response is part of paroxysmal atrial fibs. Last known atrial flutter event was in January 2023. He has been chronically on Eliquis 5 mg twice daily and sotalol 80 mg twice daily. QT interval is been measured in the 496 range. The patient was given 120 mg dose of sotalol this morning and successfully cardioverted with direct-current cardioversion in the emergency department. 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 (3) History of coronary artery stent placement: PLAN: Patient denies any true anginal symptoms. 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 Echocardiogram following his LAD adventure his EF was 55% and left intra systolic function was normal. The apex was hypokinetic and there was stage II diastolic dysfunction documented. This was 3 months after his PCI. At the time of the LAD stenting procedure it was complicated by VF arrest and torsades. PLAN: Plan 1. Patient will continue sotalol 80 mg twice daily. 2. Continue Eliquis 5 mg twice daily. 3. Patient will follow-up with an EKG in the [facility] office next week. 4. Patient will see Dr. Petty or Ana aCrr in the [facility] office in 4 to 6 weeks. 5. Patient will be discharged home once he is fully recovered from his anesthetic. HPI Consult Data Date of Consult: 11/10/23 HPI Narrative Reason for Consultation: Recurrent paroxysmal atrial fibrillation. HPI Narrative: TESHA POP, is a 67 M who presents to the emergency department after being awoken at approximately 0200 hrs. this morning with palpitations chest sensations and some shortness of breath. He presented to the emergency room where he was found to be in atrial fibrillation with a rapid ventricular response. He was initially treated with some rate slowing interventions his heart rate decreased into the 90 to 100 bpm range and his symptoms resolved. Troponins were negative x 2 sets his BUN and creatinine were unremarkable renal function was within normal limits. The patient had been adherent to his medical regiment. He had not missed a dose of sotalol. He did go out to eat last evening at a [employer] restaurant and had velma which was unusual for him. He routinely drinks several cups of coffee in the morning but none after morning time. The patient historically has been on sotalol 80 mg twice daily this was his first breakthrough since he was initiated on therapy January 2023. He has been on chronic oral anticoagulation with Eliquis which she has not missed a dose. We initially gave him 120 mg of sotalol waited approximately an hour repeat EKG showed his QT interval was 490 but he remained in atrial fibrillation. He was subsequently sedated and cardioverted successfully with electrical direct-current cardioversion in the synchronized manner. This was performed by the emergency department staff. The patient awoke was alert and had no focal neurologic deficits documented. The patient had been scheduled to see our advanced practitioner in the [facility] this morning. 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 History of torsades de pointes (07/01/20) History of ST elevation myocardial infarction (STEMI) (07/02/20) Cardiac arrest with ventricular fibrillation STEMI (ST elevation myocardial infarction) (07/01/20) Coronary artery spasm Hyperlipidemia Obesity History of non-ST elevation myocardial infarction (NSTEMI) (04/27/20) Atherosclerosis of coronary artery of [place] heart without angina pectoris RAULITO on CPAP Paroxysmal atrial fibrillation Essential hypertension Atrial fibrillation with RVR (04/27/20) Home Medications ?Medication ?Instructions ?Recorded ?Last Taken ?Type nitroglycerin 0.4 mg sublingual 0.4 mg sublingual Q5-15M PRN Chest 07/12/20 Unknown History tablet Pain apixaban 5 mg tablet 5 mg PO BID anticoagulant #180 tabs 08/03/22 02/24/23 Rx atorvastatin 40 mg tablet 40 mg PO QHS #90 tabs 08/03/22 02/23/23 Rx aspirin 81 mg tablet,delayed 81 mg PO DAILY anticoagulant #1 TAB 08/04/22 02/24/23 Rx release (Adult Aspirin Regimen) losartan 25 mg tablet See Rx Instructions .Route 04/09/23 Unknown Rx .COMPLEX bp #90 tabs sotalol 80 mg tablet 80 mg PO BID #180 TABLETS 11/03/23 Unknown Rx Allergy/AdvReac Type Severity Reaction Status Date / Time lisinopril AdvReac Intermediate cough, Verified 02/04/23 08:47 nasal drainage Family History Mother Cancer Father Heart disease Surgical History History of right and left heart catheterization (07/02/20) History of coronary artery stent placement (07/01/20) History of left heart catheterization (07/01/20) History of cardioversion (05/05/22) Social History Smoking Status: Never smoker alcohol intake: current alcohol intake frequency: holidays/special occasions only substance use type: does not use caffeine: Yes Type: coffee Number of servings: 1 ROS Constitutional Constitutional: Reports as per HPI Eyes Eyes: Reports systems reviewed and no addt'l complaints, except as documented ENT HEENT: Reports systems reviewed and no addt'l complaints, except as documented Cardiovascular Cardiovascular: Reports as per HPI Respiratory/Chest Respiratory/Chest: Reports as per HPI Gastrointestinal Gastrointestinal: Reports systems reviewed and no addt'l complaints, except as documented Genitourinary Genitourinary: Reports as per HPI Musculoskeletal Musculoskeletal: Reports systems reviewed and no addt'l complaints, except as documented Integumentary Integumentary: Reports systems reviewed and no addt'l complaints, except as documented Neurologic Neurologic: Reports systems reviewed and no addt'l complaints, except as documented Psychiatric Psychiatric: Reports systems reviewed and no addt'l complaints, except as documented Endocrine Endocrinology: Reports systems reviewed and no addt'l complaints, except as documented Hematologic/Lymphatic Hematologic/Lymphatic: Reports systems reviewed and no addt'l complaints, except as documented Allergic/Immunologic Allergic/Immunologic: Reports systems reviewed and no addt'l complaints, except as documented Physical Exam Const alert and oriented x3 HEENT normocephalic Eyes EOMs intact bilaterally Neck no JVD Carotids: Negative for bruit Chest inspection of chest normal Resp normal respiratory effort and clear to auscultation bilaterally Cardio regular rate, S1 normal heart sound, S2 normal heart sound, no murmurs, no rub and no gallops Rhythm: abnormal rhythm irregularly irregular GI soft to palpation and no bruits Extremity no pedal edema Skin no rashes or lesions noted Neuro Neuro Narrative: Alert and oriented x 3 Psych mental status grossly normal Risk Stratification Risk Stratification Applicable: Yes Age >/= 65: Yes >/= 3 CAD Risk Factors (HTN, HLD, DM, family hx of CAD, or current smoker): Yes Aspirin Use in the Past 7 Days: No Severe Angina (>/= episodes in 24 hours): No EKG ST Changes >/= 0.5mm: No Positive Cardiac Marker: No EMILY Risk Stratification Score: 2 EMILY % Risk: 8% Risk Charges/Coding Visit Charges Inpatient E&M: 94923 Init Hosp L3 Objective Data Vital Signs: Vital Signs Temp Pulse Resp BP Pulse Ox O2 Del Method O2 Flow Rate 98.2 F 93 18 119/60 98 Nasal Cannula 4 11/10/23 02:41 11/10/23 07:52 11/10/23 07:52 11/10/23 07:52 11/10/23 07:52 11/10/23 07:52 11/10/23 07:52 Oxygen Flow Rate (L/min) 4 Oxygen Delivery Method Nasal Cannula Weight: 238 lb 5.115 oz Body Mass Index (BMI) 33.2 Intake & Output: Intake and Output for Last 24 Hours 11/08/23 11/09/23 11/10/23 23:59 23:59 23:59 Intake Total 1000 / 1000 Balance 1000 / 1000 Lab / Micro Data Attestation: I reviewed the patient's lab results. 11/10/23 02:51 11/10/23 02:51 Labs: Laboratory Results - last 24 hr 11/10/23 02:51: WBC 6.5, RBC 4.67, Hgb 15.6, Hct 43.1, MCV 92.3, MCH 33.4 H, MCHC 36.2 H, RDW Std Deviation 43.0, RDW Coeff of Calista 12.6, Plt Count 205, MPV 10.0, Immature Gran % (Auto) 0.300, Neut % (Auto) 48.3, Lymph % (Auto) 37.9, Lewis % (Auto) 7.5, Eos % (Auto) 5.1 H, Baso % (Auto) 0.9, Absolute Neuts (auto) 3.1, Absolute Lymphs (auto) 2.47, Nucleated RBC % 0, Sodium 140, Potassium 3.5, Chloride 108 H, Carbon Dioxide 22.0, Anion Gap 10, BUN 27 H, Creatinine 1.03, Estim Creat Clear Calc 84.65, Est GFR (MDRD) Af Amer 92, Est GFR (MDRD) Non-Af 76, BUN/Creatinine Ratio 26.2 H, Glucose 113 H, Calcium 9.3, Magnesium 1.7, Troponin I High Sens 8 11/10/23 04:54: Troponin I High Sens 27 Rhythm Strip Rhythm Strip: A-fib Rate: 95 Cardiology Labs/Tests 11/10/23 02:51: WBC 6.5, RBC 4.67, Hgb 15.6, Hct 43.1, MCV 92.3, MCH 33.4 H, MCHC 36.2 H, Plt Count 205, MPV 10.0, Immature Gran % (Auto) 0.300, Neut % (Auto) 48.3, Lymph % (Auto) 37.9, Lewis % (Auto) 7.5, Eos % (Auto) 5.1 H, Baso % (Auto) 0.9, Absolute Neuts (auto) 3.1, Nucleated RBC % 0, Sodium 140, Potassium 3.5, Chloride 108 H, Carbon Dioxide 22.0, Anion Gap 10, BUN 27 H, Creatinine 1.03, Est GFR (MDRD) Af Amer 92, Est GFR (MDRD) Non-Af 76, BUN/Creatinine Ratio 26.2 H, Glucose 113 H, Calcium 9.3, Magnesium 1.7 Rhythm: EKG: ECHO: Stress Test: Cardiac Cath: PCI: CT Surgery: Holter monitor: EPS: PPM: CXR: Chest CT Scan: Radiography Diagnostic Testing: Radiology Impression Chest X-Ray 11/10/23 02:56 IMPRESSION: No radiographic evidence of acute cardiopulmonary disease. Electronically Signed: Kameron Craig MD at 3:43 EDT ,
[2023-11-10] MEDS: Propofol 200 MG/20 ML Vial IV BOLUS (08:17)
[2023-11-10] MEDS: APIXABAN 5 MG TABLET PO (08:27)
== END 2023-11-10 08:54 | disposition home or self-care (01) ==
PROVIDERS: Emergency Provider Emergency Medicine; PCP Family Medicine; Visit Provider Emergency Medicine
DX: I48.0 Paroxysmal atrial fibrillation (principal); I10 Essential (primary) hypertension; E78.5 Hyperlipidemia, unspecified; I25.10 Atherosclerotic heart disease of native coronary artery without angina pectoris; G47.33 Obstructive sleep apnea (adult) (pediatric); I25.2 Old myocardial infarction; Z79.82 Long term (current) use of aspirin; Z79.01 Long term (current) use of anticoagulants; Z79.899 Other long term (current) drug therapy; Z95.5 Presence of coronary angioplasty implant and graft
CPT/HCPCS: 71045; 80048; 83735; 84484; 85025; 93005; 99284; J7030; A4216

== ENCOUNTER → 2024-04-19 | Outpatient (CLI) | payer MEDICARE, OTHER, SELFPAY ==
[2021-10-29 10:17] VITALS: BMI 33.0
[2024-04-19 11:21] LABS: AST(SGOT) 27 U/L (15-37); Alanine Aminotransfer ALT/SGPT 41 U/L (16-61); Albumin, Serum 3.8 g/dL (3.2-5.0); Alkaline Phosphatase 86 U/L (45-117); Bilirubin, Direct 0.21 mg/dL (0.00-0.30); Cholesterol 168 mg/dL (200); Free T3 3.2 pg/mL (2.18-3.98); Globulin 3.5 g/dL (2.2-4.2); High Density Lipoprotein 42 mg/dL; Protein, Total 7.3 g/dL (6.4-8.2); Triglycerides 172 mg/dL; Very Low Density Lipoprotein 34 mg/dL (5-40)
== END | disposition home or self-care (01) ==
LOC: LAB 09:57
PROVIDERS: PCP Family Medicine; Referring Provider Physician Assistant Medical; Visit Provider Physician Assistant Medical
DX: E03.9 Hypothyroidism, unspecified (principal); E78.5 Hyperlipidemia, unspecified
CPT/HCPCS: 36415; 80061; 80076; 84439; 84443; 84481

== ENCOUNTER → 2024-05-11 | Outpatient (CLI) | payer MEDICARE, OTHER, SELFPAY ==
[2021-10-29 10:17] VITALS: BMI 33.0
== END | disposition home or self-care (01) ==
LOC: PSN 07:41
PROVIDERS: PCP Family Medicine; Referring Provider Physician Assistant Medical; Visit Provider Physician Assistant Medical
DX: I48.0 Paroxysmal atrial fibrillation (principal); I48.92 Unspecified atrial flutter; R00.2 Palpitations
CPT/HCPCS: 93225; 93226

== ENCOUNTER → 2024-10-18 | Outpatient (CLI) | payer MEDICARE, OTHER, SELFPAY ==
[2021-10-29 10:17] VITALS: BMI 33.0
[2024-10-18 12:25] LABS: Cholesterol 175 mg/dL (<=200); High Density Lipoprotein 37 mg/dL; Low Density Lipoprotein Calc. 112 mg/dL; Magnesium 1.9 mg/dL (1.5-2.2); Triglycerides 132 mg/dL; Very Low Density Lipoprotein 26 mg/dL (5-40); cholesterol:hdl ratio screen 4.73
[2024-10-18 12:35] LABS: ALB/GLOB Ratio 1.5 RATIO (0.9-2.4); AST(SGOT) 31 U/L (<=37); Alanine Aminotransfer ALT/SGPT 35 U/L (<=46); Albumin, Serum 4.4 g/dL (3.4-4.8); Alkaline Phosphatase 95 U/L (40-129); Anion Gap 10 (5-15); BUN 20 mg/dL (4-19); BUN/Creat Ratio 20.2 RATIO (10-20); Calcium,Total 9.5 mg/dL (7.6-11.0); Carbon Dioxide 24.3 mmol/L (21.0-32.0); Chloride 105 mmol/L (98-108); Creatinine, Serum 0.99 mg/dL (0.70-1.20); EST Glomerular Filtration Rate 82 (>60); Globulin 2.9 g/dL (2.2-4.2); Glucose 109 mg/dL (70-99); Protein, Total 7.3 g/dL (5.9-8.4); Sodium Level 139 mmol/L (133-145); Total Bilirubin 0.74 mg/dL (0.00-1.30)
== END | disposition home or self-care (01) ==
LOC: LAB 10:52
PROVIDERS: PCP Family Medicine; Referring Provider Physician Assistant Medical; Visit Provider Physician Assistant Medical
DX: E78.5 Hyperlipidemia, unspecified (principal); I49.01 Ventricular fibrillation; I46.9 Cardiac arrest, cause unspecified; I48.0 Paroxysmal atrial fibrillation; I25.10 Atherosclerotic heart disease of native coronary artery without angina pectoris; I10 Essential (primary) hypertension; Z95.5 Presence of coronary angioplasty implant and graft
CPT/HCPCS: 36415; 80053; 80061; 83735

== ENCOUNTER 2025-01-15 09:47 | Emergency (ER) | payer MEDICARE, OTHER, SELFPAY ==
[2021-10-29 10:17] VITALS: BMI 33.0
[2025-01-15 09:47] VITALS: BP 150/90; PULSE 90; RESP 16; TEMP 37; O2SAT 99
--- NOTE | 2025-01-15 10:15 | RAD_ITS ---
PROCEDURE: ANKLE MIN 3 VIEWS 01/15/2025 REASON FOR EXAM: PAIN. INJURY TECHNIQUE: Procedure Code: RADANK Modality: DX Procedure: ANKLE MIN 3 VIEWS Laterality: Left COMPARISON: Foot x-ray of the same FINDINGS: Bones: No fracture. Ossicular density caudal to the medial malleolus likely sequelae of old injury. Enthesophyte at the Achilles insertion. Small calcaneal spur. Joints: Mild degenerative changes of the tibiotalar joint. Soft tissues: Soft tissue swelling about the ankle. Other: No foreign body RAD/Ankle min 3 Views IMPRESSION: Soft tissue swelling. Degenerative changes. Reading Location: [id number]
--- NOTE | 2025-01-15 10:15 | RAD_ITS ---
PROCEDURE: FOOT MIN 3 VIEWS 01/15/2025 REASON FOR EXAM: PAIN, INJURY Soft tissue swelling. TECHNIQUE: Procedure Code: RADFO Modality: DX Procedure: FOOT MIN 3 VIEWS Laterality: Left foot COMPARISON: None FINDINGS: Bones: No fracture seen. Joints: Degenerative changes at the 1st metatarsophalangeal joint in keeping with osteoarthritis. Soft tissues: Diffuse soft tissue swelling. Other: RAD/Foot min 3 Views IMPRESSION: Degenerative changes at the 1st metatarsophalangeal joint. Diffuse soft tissue swelling. No fracture seen. Reading Location: [place] [id number]
--- NOTE | 2025-01-15 10:18 | EDS_ITS ---
HPI History of Present Illness Chief Complaint: Lower Extremity Injury Informant: patient Narrative Narrative: Patient is a 69 year old male on chronic Eliquis therapy for atrial fibrillation presenting with left patient foot/ankle pain and swelling as well as bruising. Patient states 2 days ago he was fishing and it was a very steep bank. His right foot/leg slid on the dry grass and his left foot he thinks got stuck on the root. He is not exactly sure how he injured it but he had immediate pain in his left foot/ankle area (lateral aspect). Has been taking Tylenol for pain (most recently had 2 Tylenol prior to arrival). States the pain and swelling as well as bruising is worse today and it is worse with weightbearing. Denies any associate numbness or tingling. Denies any other injuries and specifically denies hitting his head. Notes initially he did feel that he twisted his left knee with this fall but states that pain has since resolved. No other complaints or concerns reported at this time. 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4 mg sublingual 0.4 mg sublingual Q5-1 5M PRN Chest 07/12/20 Unknown History tablet Pain apixaban 5 mg tablet (Eliquis) 5 mg PO BID #180 TABLET S 12/31/23 Unknown Rx atorvastatin 80 mg tablet (Lipitor) 80 mg PO QDAY 10/01 12/25 Unknown History aspirin 81 mg tablet,delayed 81 mg PO DAILY anticoagul ant #1 TAB 10/24/24 Unknown Rx release (Adult Aspirin Regimen) losartan 50 mg tablet 50 mg PO DAILY #90 TABLETS 0 10/24/24 Unknown Rx sotalol 80 mg tablet 80 mg PO BID #180 TABLETS Unknown Rx hydrocodone-acetaminophen 5-325mg 1 tab PO Q12H PRN Pa in 3 days #12 01/15/25 U nknown Rx 5mg-325mg TABLETS Allergy/AdvReac Type Severity Reaction Status Date / Time lisinopril AdvReac Intermediate cough, Verified 01/15/25 09:49 nasal drainage Family History Mother Cancer Father Heart disease Surgical History History of right and left heart catheterization (07/02/20) History of coronary artery stent placement (07/01/20) History of left heart catheterization (07/01/20) History of cardioversion (05/05/22) Social History Smoking Status: Never smoker alcohol intake: current alcohol intake frequency: holidays/special occasions on ly substance use type: does not use caffeine: Yes Type: coffee Number of servings: 1 ROS ROS ED Constitutional Constitutional ED: Denies chills or fever(s) Musculoskeletal Musculoskeletal: Reports other Details: Left ankle/foot pain and swelling Integumentary Reports other Details: Bruising to left foot/ Neurologic Neurologic: Denies paresthesias or weakness Hematologic/Lymphatic Hematologic/Lymphatic: Reports easy bleeding, easy bruising and other Details: On Eliquis EXAM Physical Exam Const Vital Signs: 01/15/25 09:47 Temperature 98.6 F Temperature Source Oral Pulse Rate 90 Respiratory Rate 16 Blood Pressure 150/90 H Blood Pressure Mean 110 Pulse Ox 99 Oxygen Delivery Method Room Air Positive well nourished and well developed General Appearance ED: well developed and NAD HEENT normocephalic and atraumatic Neck full ROM Resp normal respiratory effort Cardio regular rate and regular rhythm Cardio Narrative: 2+ DP pulses Extremity full ROM Extremity Narrative: Soft tissue swelling to the left midfoot with associated tenderness to palpation most pronounced over the 4th and 5th metatarsals. No obvious deformity. Mild tenderness to palpation over the lateral malleolus. No joint effusion of the ankle appreciated. Normal Napier test. Able to wiggle his toes and sensation is intact. No tenderness palpation over the fibular head. Unremarkable knee exam. Normal range of motion of the knee with no effusion present compartments are soft of the left lower leg Neuro oriented x3, moves all extremities and no sensory deficits noted Sensorium / Orientation: alert Psych mental status grossly normal Skin Skin Narrative: Ecchymosis noted to the lateral aspect of the left ankle/foot. MDM MDM MDM Narrative Medical decision making narrative: Patient evaluated for left foot pain and bruising after an injury that occurred 2 days ago. Differential includes not limited to ankle fracture, foot fracture and sprain. Patient has good distal pulses so low suspicion for acute arterial/vascular injury. Is neurologically intact distally. Does have bruising however compartments are soft and suspicion for compartment syndrome or hemorrhage into the space. X-ray of the ankle as well as foot reviewed by myself as well as urology does not show any acute bony injuries. There are some soft tissue swelling and degenerative changes. Patient's pain is controlled at this time he declined anything stronger for pain. Will be given a prescription for a short course of Calder for breakthrough pain. Is given Antoni wrap and postop shoe. He is given referral for podiatry. Given return precautions. Counseled on the importance elevation and ice as I specked a lot of his pain is from the soft tissue swelling. Given return precautions. Discharged home in stable condition peer Radiography Diagnostic Testing: Clinical Impression(s) from Imaging Studies Ankle X-Ray 01/15/25 10:15 IMPRESSION: Soft tissue swelling. Degenerative changes. Reading Location: [id number] Foot X-Ray 01/15/25 10:15 IMPRESSION: Degenerative changes at the 1st metatarsophalangeal joint. Diffuse soft tissue swelling. No fracture seen. 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 Instructions: ED Foot Contusion, ED Foot Sprain Prescriptions: New hydrocodone-acetaminophen 5-325 mg tablet 1 tab PO Q12H PRN (Reason: Pain) 3 Days Qty: 12 0RF No Action nitroglycerin 0.4 mg tablet, sublingual 0.4 mg SL Q5-15M PRN (Reason: Chest Pain) atorvastatin [Lipitor] 80 mg tablet 80 mg PO QDAY Eliquis 5 mg tablet 5 mg PO BID Qty: 180 3RF sotalol 80 mg tablet 80 mg PO BID Qty: 180 3RF aspirin [Adult Aspirin Regimen] 81 mg tablet,delayed release (DR/EC) 81 mg PO DAILY Qty: 1 0RF losartan 50 mg tablet 50 mg PO DAILY Qty: 90 3RF Primary Care Provider: River Cho Referrals: Luciano Dominguez MD [Med Staff - Active Staff] - River Cho MD [Primary Care Provider] - Activity Restrictions/Additional Instructions: Place weight on your foot as tolerated. When you are sitting make sure you are elevating the foot to help with the swelling. Wear Antoni wrap and postop shoe as needed for comfort and swelling. May continue take Tylenol as needed for pain. You have been prescribed Calder which is hydrocodone and acetaminophen for breakthrough/severe pain. It is okay if you end up not needing it. Follow-up with bullet swaging machine operator as needed if you have further concerns Print Language: Amharic Disposition Disposition: Home, Self Care
[2025-01-15 11:31] VITALS: BP 150/90; PULSE 90; RESP 16; TEMP 37; O2SAT 99
== END 2025-01-15 11:32 | disposition home or self-care (01) ==
PROVIDERS: Emergency Provider Emergency Medicine; PCP Family Medicine; Visit Provider Emergency Medicine
DX: S90.32XA Contusion of left foot, initial encounter (principal); I48.0 Paroxysmal atrial fibrillation; S93.602A Unspecified sprain of left foot, initial encounter; I25.10 Atherosclerotic heart disease of native coronary artery without angina pectoris; E78.5 Hyperlipidemia, unspecified; I10 Essential (primary) hypertension; I25.2 Old myocardial infarction; G47.33 Obstructive sleep apnea (adult) (pediatric); X58.XXXA Exposure to other specified factors, initial encounter; Z79.01 Long term (current) use of anticoagulants
CPT/HCPCS: 73610; 73630; 99283

== ENCOUNTER 2025-02-07 11:38 | Emergency (ER) | payer MEDICARE, OTHER, SELFPAY ==
[2021-10-29 10:17] VITALS: BMI 33.0
[2025-02-07] VITALS (14 sets, daily range): BP systolic 124–153; BP diastolic 55–92; PULSE 67–77; RESP 12–20; TEMP 36.7–36.8; O2SAT 96–100; BMI 32.1
--- NOTE | 2025-02-07 12:32 | ED.VIS.DYS ---
HPI History of Present Illness Chief Complaint: Shortness of Breath Informant: patient Onset/Context/Timing Onset: Days (4) Context: gradual Timing: Intermittent Quality: Positive for Dyspnea on exertion Worsened by: Exertion Relieved by: Rest Associated Symptoms cough; Negative for clear sputum, white sputum, yellow sputum or green sputum Chest Pain: Positive for Intermittent and Dull Narrative Narrative: Patient presents with shortness of breath that has been getting worse over the past 4 days. Patient states it is gradually getting worse. Patient states it comes and goes. Patient states it is worse with exertion. Patient states it is better with rest. Patient admits to a slight cough. Patient states he feels like he needs to cough something up but is unable to produce any sputum. Patient denies any fevers or chills. Patient admits to some dull pain in the substernal area. Patient is on Eliquis for paroxysmal atrial fibrillation. 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 History of torsades de pointes (07/01/20) History of ST elevation myocardial infarction (STEMI) (07/02/20) Cardiac arrest with ventricular fibrillation STEMI (ST elevation myocardial infarction) (07/01/20) Coronary artery spasm Hyperlipidemia Obesity History of non-ST elevation myocardial infarction (NSTEMI) (04/27/20) Atherosclerosis of coronary artery of [place] heart without angina pectoris RAULITO on CPAP Paroxysmal atrial fibrillation Essential hypertension Atrial fibrillation with RVR (04/27/20) Home Medications ?Medication ?Instructions ?Recorded ?Last Taken ?Type nitroglycerin 0.4 mg sublingual 0.4 mg sublingual Q5-15M PRN Chest 07/12/20 Unknown History tablet Pain atorvastatin 80 mg tablet (Lipitor) 80 mg PO QDAY 10/18/24 Unknown History aspirin 81 mg tablet,delayed 81 mg PO DAILY anticoagulant #1 TAB 10/24/24 Unknown Rx release (Adult Aspirin Regimen) sotalol 80 mg tablet 80 mg PO BID #180 TABLETS 01/16/25 Unknown Rx losartan 50 mg tablet 50 mg PO DAILY #90 TABLETS 01/30/25 Unknown Rx apixaban 5 mg tablet (Eliquis) 5 mg PO BID #180 TABLETS 02/07/25 Unknown Rx Allergy/AdvReac Type Severity Reaction Status Date / Time lisinopril AdvReac Intermediate cough, Verified 02/07/25 11:43 nasal drainage Family History Mother Cancer Father Heart disease Surgical History History of right and left heart catheterization (07/02/20) History of coronary artery stent placement (07/01/20) History of left heart catheterization (07/01/20) History of cardioversion (05/05/22) Social History household members: spouse current occupational status: employed Smoking Status: Never smoker alcohol intake: current alcohol intake frequency: holidays/special occasions only substance use type: does not use caffeine: Yes Type: coffee Number of servings: 1 ROS ROS ED Constitutional Constitutional ED: Denies chills or fever(s) Eyes Eyes: Reports blurry vision; Denies diplopia ENT ENT ED: Denies rhinorrhea or sore throat Cardiovascular Cardiovascular: Denies chest pain or palpitations Respiratory/Chest Respiratory/Chest: Reports cough and dyspnea Gastrointestinal Gastrointestinal: Denies nausea or vomiting Genitourinary Genitourinary ED: Denies dysuria or hematuria Musculoskeletal Musculoskeletal: Denies back pain or neck pain Integumentary Denies abscess or rash Neurologic Neurologic: Denies headache(s) or weakness Allergic/Immunologic Allergic/Immunologic ED: Denies mouth swelling or urticaria EXAM Physical Exam Const Vital Signs: 02/07/25 11:41 02/07/25 11:46 02/07/25 11:49 Temperature 98.3 F Temperature Source Oral Pulse Rate 68 Respiratory Rate 18 Respiratory Effort Short of Breath Short of Breath Respiratory Depth Normal Respiratory Pattern Normal Blood Pressure 126/55 H Blood Pressure Mean 78 Pulse Ox 99 Oxygen Delivery Method Room Air Room Air 02/07/25 12:10 Temperature Temperature Source Pulse Rate 70 Respiratory Rate 20 H Respiratory Effort Respiratory Depth Respiratory Pattern Blood Pressure 145/74 H Blood Pressure Mean 97 Pulse Ox 98 Oxygen Delivery Method Room Air Positive well nourished and well developed General Appearance ED: well developed and NAD HEENT Reports moist mucous membranes atraumatic Neck supple and no JVD Resp normal respiratory effort and clear to auscultation bilaterally Cardio regular rate and regular rhythm Rhythm: abnormal rhythm ectopic beats (Occasional) GI non-tender and non-distended Palpation: soft Neuro oriented x3, CN's II-XII intact bilaterally and no sensory deficits noted [place] Coma Scale: document GCS findings Spontaneous Obeys Commands Oriented 15 Sensorium / Orientation: alert Speech: speech normal Motor Exam: strength 5/5 throughout Psych mental status grossly normal MDM MDM MDM Narrative Medical decision making narrative: Differential diagnosis includes pneumonia, bronchitis, cardiac dysrhythmia, cardiac ischemia, electrolyte abnormality, anxiety, and gastroesophageal reflux disease. EKG will be obtained to assess for cardiac dysrhythmia and cardiac ischemia. Chest x-ray will be obtained to assess for pneumonia and bronchitis. CBC will be obtained to assess for leukocytosis and anemia. Basic metabolic profile will be obtained to assess for electrolyte abnormality and renal function. High-sensitivity troponin will be obtained to assess for cardiac ischemia. 2-hour repeat high-sensitivity troponin will be obtained to assess for ongoing cardiac ischemia. PT with INR and PTT will be obtained to assess for coagulopathy. History & Record Review Additional record(s) reviewed:: Prior ED visit and Prior labs Lab Data Attestation: I reviewed the patient's lab results. Lab results narrative: CBC was reviewed and was within normal limits. Basic metabolic profile was reviewed and was essentially within normal limits. PT with INR and PTT were reviewed. Pro time was 15.5 and INR is 1.2. PTT was normal at 33.3. Initial high-sensitivity troponin was reviewed and was slightly elevated at 29. 2-hour repeat high-sensitivity troponin was reviewed and was improved at 27. EKG Initial EKG: Attestation: I personally reviewed and interpreted this EKG as follows: Interpretation: Sinus Rhythm (With occasional PVCs with a rate of 74) and Non-Specific ST Changes Comments: EKG was obtained. On my independent interpretation, it showed a normal sinus rhythm with occasional PVCs with a rate of 74. PA interval, QRS interval, and QTc intervals were all normal. [place] was normal. There are nonspecific ST-T wave changes. Prior EKG tracings: available for review Prior: Unchanged (10/18/2024) Treatment and Re-Evaluation :: Patient was given aspirin. Patient was advised of his findings. Patient has a HEART score of 4. Patient was instructed to follow-up with his primary care physician in 5 to 7 days. Patient was instructed to return if worse in any way. Patient understood and was agreeable with the plan. All questions were answered. Discharge Plan Triage Chief Complaint: Shortness of Breath Other Complaint: Palpitations ED Provider: Live Rodriguez Dx/Rx/DC Orders Clinical Impression: Chest pain, Heart palpitations Instructions: ED Chest Pain, Uncertain Cause, ED Heart Palpitations Prescriptions: No Action nitroglycerin 0.4 mg tablet, sublingual 0.4 mg SL Q5-15M PRN (Reason: Chest Pain) atorvastatin [Lipitor] 80 mg tablet 80 mg PO QDAY Eliquis 5 mg tablet 5 mg PO BID Qty: 180 3RF aspirin [Adult Aspirin Regimen] 81 mg tablet,delayed release (DR/EC) 81 mg PO DAILY Qty: 1 0RF sotalol 80 mg tablet 80 mg PO BID Qty: 180 3RF losartan 50 mg tablet 50 mg PO DAILY Qty: 90 3RF Primary Care Provider: River Cho Referrals: River Cho MD [Primary Care Provider, Family Practice] - 5-7 Days Print Language: Afghan Disposition Disposition: Home, Self Care
[2025-02-07 12:45] LABS: Hematocrit 43.5 % (40-54); Hemoglobin 15.2 g/dL (13.0-16.5); Immature Granulocytes Count 0.040 X10^3/uL (0.0-0.0); Mean Corp Hgb Conc 34.9 g/dL (32-36); Mean Corpuscular Volume 92.2 fL (80-94); Mean Platelet Vol. 9.9 fl (6.2-12.0); NRBC Flagged by Analyzer 0 % (0-5); Platelet Count 354 K/mm3 (150-450); RBC Distribution Width CV 11.9 % (11.6-14.6); RBC Distribution Width SD 40.1 fl (35.1-43.9); Red Blood Count 4.72 M/mm3 (4.6-6.2); White Blood Count 10.6 K/mm3 (4.4-11.0)
--- NOTE | 2025-02-07 12:45 | RAD_ITS ---
PROCEDURE: CHEST PA AND LATERAL 02/07/2025 REASON FOR EXAM: CHEST PAIN TECHNIQUE: Procedure Code: RADCXR Modality: DX Procedure: CHEST PA AND LATERAL COMPARISON: 11/10/2023. FINDINGS: The heart is normal in size. The lungs are clear. No acute osseous abnormalities. RAD/Chest PA and Lateral IMPRESSION: NO ACUTE FINDINGS. Reading Location: [id number]
[2025-02-07 12:58] LABS: Prothrombin Time (Protime)PT. 15.5 SECONDS (11.7-14.9)
[2025-02-07 12:59] LABS: Partial Thromboplast Time 33.3 Seconds (24.1-36.2)
[2025-02-07 13:25] LABS: Troponin T High Sensitivity 29 ng/L (<=22)
[2025-02-07 13:39] LABS: Anion Gap 12 (5-15); BUN 18 mg/dL (4-19); BUN/Creat Ratio 20.5 RATIO (10-20); Calcium,Total 9.6 mg/dL (7.6-11.0); Carbon Dioxide 22.8 mmol/L (21.0-32.0); Chloride 102 mmol/L (98-108); Estimated Creatinine Clearance 93.66 ml/min (50-250); Glucose 92 mg/dL (70-99); Potassium 4.4 mmol/L (3.3-5.1)
[2025-02-07 14:31] LABS: Troponin T High Sens 2 HR 27 ng/L (<=22)
== END 2025-02-07 15:22 | disposition home or self-care (01) ==
PROVIDERS: Emergency Provider Emergency Medicine; PCP Family Medicine; Visit Provider Emergency Medicine
DX: R07.9 Chest pain, unspecified (principal); I48.0 Paroxysmal atrial fibrillation; I25.10 Atherosclerotic heart disease of native coronary artery without angina pectoris; E78.5 Hyperlipidemia, unspecified; I10 Essential (primary) hypertension; R06.02 Shortness of breath; Z79.01 Long term (current) use of anticoagulants; Z79.82 Long term (current) use of aspirin; Z79.899 Other long term (current) drug therapy
CPT/HCPCS: 71046; 80048; 84484; 85025; 85610; 85730; 93005; 99285